=== PATIENT | male | born 1960 | race Caucasian/White ===

== ENCOUNTER → 2016-11-24 12:17 | Emergency (ER) | payer OTHER ==
[~2016-11-24 12:17] MED LIST: Iohexol 350* (CONTRAST) 500 ML MDV IV ONE; NS 0.9% 1000 ML* 1,000 ML IV ONE
--- NOTE | 2016-11-24 13:02 | RAD ---
INDICATION: Intermittent expressive aphasia and right facial droop COMPARISON: Similar CT examination dated August 21, 2014 TECHNIQUE: Contiguous axial sections of the brain were obtained from the skull base to the vertex without contrast. FINDINGS: There is slight asymmetric narrowing of the left frontal horn ventricle unchanged from the prior CT examination. Otherwise the ventricles, cisterns and sulci are within normal limits. The wagner-white matter differentiation is adequately maintained and there is no sulcal effacement. No significant focal abnormality or mass effect is present. There is no evidence for intracranial hemorrhage. No significant focal osseous abnormality is present. The visualized portion of the paranasal sinuses and mastoid air cells appear clear. IMPRESSION: There is no acute intracranial abnormality. Findings were reported to Dr. Monson over the telephone at 1258 hours on November 24, 2016.
[2016-11-24 13:09] LABS: Hematocrit 42 % (42-52); Hemoglobin 13.9 g/dl (14.0-18.0); Mean Corpuscular HGB Conc 34 g/dl (31-36); Mean Corpuscular Hemoglobin 29 pg (27-31); Mean Corpuscular Volume 88 fL (80-94); Mean Platelet Volume 8 um3 (7.4-10.4); Red Blood Count 4.73 10^6/ul (4.0-5.4); Red Cell Distribution Width 14 % (10.5-15)
--- NOTE | 2016-11-24 13:27 | RAD ---
Indication: Neurologic changes. Single frontal view of the chest performed at 1258 hours was reviewed. Comparison is made with previous exam dated August 21, 2014. No mediastinal shift is noted. Heart is of normal size and configuration. Lung baird appear clear. IMPRESSION: NO ACTIVE CARDIOPULMONARY DISEASE IS NOTED.
[2016-11-24 13:29] LABS: Albumin 4.3 g/dL (3.2-5.2); BUN/Creatinine Ratio 27.5 (8-20); Calcium 9.2 mg/dL (8.6-10.3); EGFR African American 128.6 (>60); Globulin 2.4 g/dL (2-4); HDL Cholesterol 39.6 mg/dL; Total Bilirubin 0.6 mg/dL (0.2-1.0); Total Protein 6.7 g/dL (6.4-8.9)
[2016-11-24 13:50] LABS: Potassium 4.4 mmol/L (3.5-5.0)
--- NOTE | 2016-11-24 14:24 | RAD ---
Indication: Stroke. Contrast: Administered 80.1 ml of OMNIPAQUE 350 mg/ml CTA of the neck and head was performed after IV contrast demonstration. Coronal and sagittal reconstructed images as well as 3-D reconstructive images were obtained. Origins of the great vessels are unremarkable. Innominate artery, left common carotid artery is otherwise unremarkable. There is occlusion of the left internal carotid artery just distal to its origin. This is unchanged from previous exam of August 21, 2014 and is a chronic finding. The right internal carotid artery is grossly unremarkable. Both vertebral arteries are patent. Basilar artery and posterior cerebral arteries are unremarkable. CTA of the head demonstrates anterior and middle cerebral arteries to be patent. The left anterior circulation is presumed to be filled by a patent anterior communicating artery. Findings appear to be similar to that seen on August 21, 2014. IMPRESSION: Occlusion of the left internal carotid artery just distal to its origin. This is a chronic process and has been present as far back as August 21, 2014. No new stenosis is noted about calcific plaque is noted in the right carotid bulb which is unchanged from previous exam. The anterior and middle cerebral arteries are otherwise unremarkable.
[2016-11-24 16:54] VITALS: BP 132/76
--- NOTE | 2016-11-25 14:15 | ED ---
Janusz King Alfonso, scribed for Berry Monson MD on 11/24/16 at 1242 . Altered Mental Status - HPI Summary HPI Summary: MATTIE EARLY CALLED AT 1238 This patient is a 56 year old M presenting to [facility] accompanied by with a chief complaint of intermittent difficulty finding words since a few weeks ago, worse since earlier today. He states my talking wasnt coming out right. The patient rates the pain 0/10 in severity. Symptoms aggravated by nothing. Symptoms alleviated by spontaneous resolution. reports confusion, and left- sided facial droop (last night intermittently, 20 minutes ago today, and currently resolved). Patient denies CP. He is prescribed Xarelto which he ran out of and did not take for 3 days. He did take Xarelto yesterday and today. - History Of Current Complaint Chief Complaint: EDNeurologicalDeficit Stated Complaint: AMS/FACIAL DROOPING Time Seen by Provider: 11/24/16 12:31 Hx Obtained From: Patient Onset/Duration: Resolved, Suddenly Timing: Constant Character: Confusion Aggravating Factor(s): Nothing Alleviating Factor(s): Other - Spont Res - Allergies/Home Medications Allergies/Adverse Reactions: Allergies Allergy/AdvReac Type Severity Reaction Status Date / Time Atorvastatin [From Lipitor] Allergy Muscle Ache Verified 11/24/16 12:23 Home Medications: Home Medications Aspirin EC Low Dose* [Ecotrin EC Low Dose 81 MG*] 81 mg PO DAILY 11/24/16 [ History Confirmed 11/24/16] FLUoxetine CAP* [PROzac CAP*] 20 mg PO DAILY 11/24/16 [History Confirmed ] FLUoxetine CAP* [PROzac CAP*] 40 mg PO DAILY 11/24/16 [History Confirmed ] Losartan TAB* [Cozaar TAB*] 25 mg PO DAILY 11/24/16 [History Confirmed 11/24/16] Metoprolol Succinate XL TAB* [Toprol XL TAB*] 12.5 mg PO DAILY 11/24/16 [ History Confirmed 11/24/16] Rivaroxaban TAB(*) [Xarelto 20 mg] 20 mg PO DAILY 11/24/16 [History Confirmed ] PMH/Surg Hx/FS Hx/Imm Hx Endocrine/Hematology History: Reports: Other Endocrine/Hematological Disorders - Per pt "Leiden Factor V" Denies: Hx Diabetes, Hx Thyroid Disease Cardiovascular History: Reports: Hx Angina - 2011, Hx Coronary Artery Disease, Hx Hypercholesterolemia, Hx Hypertension Denies: Hx Congenital Heart Disease, Hx Congestive Heart Failure, Hx Deep Vein Thrombosis, Hx Embolism, Hx Pacemaker/ICD, Hx Syncope Respiratory History: Reports: Hx Sleep Apnea Denies: Hx Asthma History: Denies: Hx Renal Disease Musculoskeletal History: Denies: Hx Back Problems, Hx Gout Sensory History: Reports: Hx Contacts or Glasses Denies: Hx Hearing Aid, Hx Hearing Problem Opthamlomology History: Reports: Hx Contacts or Glasses Neurological History: Reports: Hx CVA, Hx Transient Ischemic Attacks (TIA), Other Neuro Impairments/Disorders - Traumatic head injury 1989. carotid artery occlusion Denies: Hx Dementia, Hx Migraine, Hx Seizures, Hx Spinal Cord Injury Psychiatric History: Reports: Hx Anxiety Denies: Hx Panic Disorder - Surgical History Surgery Procedure, Year, and Place: CARDIAC STENTS 3 OR 4 YEARS - Immunization History Date of Tetanus Vaccine: Up to date Date of Influenza Vaccine: Fall 2012 Infectious Disease History: No Infectious Disease History: Denies: Traveled Outside the [place] in Last 30 Days - Family History Known Family History: Positive: Cardiac Disease - Social History Alcohol Use: None Substance Use Type: Reports: None Smoking Status (MU): Former Smoker Amount Used/How Often: 3ppd Length of Time of Smoking/Using Tobacco: 20 Review of Systems Negative: Fever, Chills Negative: Erythema Negative: Sore Throat Negative: Chest Pain Negative: Shortness Of Breath, Cough Negative: Abdominal Pain, Vomiting, Nausea Negative: dysuria, hematuria Negative: Myalgia, Edema Negative: Rash Neurological: Other - difficulty finding words, confusion, left-sided facial droop; negative dizziness All Other Systems Reviewed And Are Negative: Yes Physical Exam - Summary Physical Exam Summary: Constitutional: Well-developed, Well-nourished, Alert. (-) Distressed Skin: Warm, Dry HENT: Normocephalic; Atraumatic Eyes: Conjunctiva normal Eyes: Conjunctiva normal Neck: Musculoskeletal ROM normal neck. (-) JVD, (-) Stridor, (-) Tracheal deviation Cardio: Rhythm regular, rate normal, Heart sounds normal; Intact distal pulses; The pedal pulses are 2+ and symmetric. Radial pulses are 2+ and symmetric. (-) Murmur Pulmonary/Chest wall: Effort normal. (-) Respiratory distress, (-) Wheezes, (-) Rales Abd: Soft. (-) Tenderness, (-) Distension, (-) Guarding, (-) Rebound Musculoskeletal: (-) Edema Lymph: (-) Cervical adenopathy Neuro: Alert, Oriented x3, Strength normal, Cranial nerves II-XII are grossly intact. (-) Dysmetria, (-) Nystagmus, (-) Ataxia by finger to nose testing, (-) Sensory deficit. Occasional mild dysarthria. See NIH stroke scale. Psych: Mood and affect Normal Triage Information Reviewed: Yes Vital Signs On Initial Exam: Initial Vitals Temp Pulse Resp BP Pulse Ox 96.4 F 50 16 86/62 99 11/24/16 12:21 11/24/16 12:21 11/24/16 12:21 11/24/16 12:21 11/24/16 12:21 Vital Signs Reviewed: Yes - Liz Coma Scale Coma Scale Total: 15 Diagnostics - Vital Signs Vital Signs Temp Pulse Resp BP Pulse Ox 11/24/16 12:21 96.4 F 50 16 86/62 99 - Laboratory Result Diagrams: 11/24/16 12:50 11/24/16 12:50 Lab Statement: Any lab studies that have been ordered have been reviewed, and results considered in the medical decision making process. - Radiology CXR Radiology Interpretation Completed By: Radiologist - NO ACTIVE CARDIOPULMONARY DISEASE IS NOTED. ED physician has reviewed this radiology report and agrees. - CT brain CT Interpretation Completed By: Radiologist - There is no acute intracranial abnormality. Findings were reported to Dr. Monson over the telephone at 1258 hours on November 24, 2016. ED physician has reviewed this radiology report and agrees. CTA head CT Interpretation Completed By: Radiologist - Occlusion of the left internal carotid artery just distal to its origin. This is a chronic process and has been present as far back as August 21, 2014. No new stenosis is noted about calcific plaque is noted in the right carotid bulb which is unchanged from previous exam. The anterior and middle cerebral arteries are otherwise unremarkable. ED physician has reviewed this radiology report and agrees. - EKG 1411 Cardiac Rate: Bradycardia - BPM 52 EKG Rhythm: Sinus Bradycardia EKG Interpretation: No STEMI. National Institutes Of Health - NIH Scale Level of Consciousness: Alert/Keenly Responsive Ask Patient the Month and His/Her Age: Both Correct Ask Pt to Open/Close Eyes and Fisheries Specialist/Release Non-Paretic Hand: Both Correctly Best Gaze (Only Horizontal Eye Movement): Normal Visual Field Testing: No Visual Loss Facial Paresis-Pt to Smile & Close Eyes or Grimace Symmetry: Normal/Symmetrical Motor Function - Right Arm: No Drift-Holds 10 Seconds Motor Function - Left Arm: No Drift-Holds 10 Seconds Motor Function - Right Leg: No Drift-Holds 10 Seconds Motor Function - Left Leg: No Drift-Holds 10 Seconds Limb Ataxia-Must be out of Proportion to Weakness Present: Absent Sensory (Use Pinprick to Test Arms/Legs/Trunk/Face): Normal Best Language (Describe Picture, Name Items): No Aphasia Dysarthria (Read Several Words): Normal Extinction and Inattention: No Abnormality Total Score: 0 Altered Mental Statu Course/Dx - Course Assessment/Plan: MATTIE NNEKA CALLED AT 1238. This patient is a 56 year old M presenting to [facility] accompanied by with a chief complaint of intermittent difficulty finding words since a few weeks ago, worse since earlier today. He states my talking wasnt coming out right. The patient rates the pain 0/10 in severity. Symptoms aggravated by nothing. Symptoms alleviated by spontaneous resolution. reports confusion, and left-sided facial droop (last night intermittently, 20 minutes ago today, and currently resolved). Patient denies CP. He is prescribed Xarelto which he ran out of and did not take for 3 days. He did take Xarelto yesterday and today. An EKG reveals Sinus bradycardia. CXR reveals NO ACTIVE CARDIOPULMONARY DISEASE IS NOTED. ED physician has reviewed this radiology report and agrees. CT brain reveals There is no acute intracranial abnormality. Findings were reported to Dr. Monson over the telephone at 1258 hours on November 24, 2016. ED physician has reviewed this radiology report and agrees. CTA Head/Neck reveals Occlusion of the left internal carotid artery just distal to its origin. This is a chronic process and has been present as far back as August 21, 2014. No new stenosis is noted about calcific plaque is noted in the right carotid bulb which is unchanged from previous exam. The anterior and middle cerebral arteries are otherwise unremarkable. ED physician has reviewed this radiology report and agrees. Consulted Dr. Bass (neurologist) recommends transfer to [place] for neuroendovascular consultation. Consulted Dr. Vegas at [place] who agrees to accept the transfer. Patient will be transferred for continuity of care and neuroendovascular consulation follow up from [place]. The patient is agreeable with this plan. - Diagnoses Discharge Diagnoses: Stuttering TIA During the Visit The Following Alert/Code Occurred: Code Early - CODE EARLY CALLED AT 1238 - Provider Notifications Discussed Care Of Patient With: Abdi Bass Time Discussed With Above Provider: 15:15 Instructed by Provider To: Other - Consulted Dr. Bass (neurologist) recommends transfer to [place] for neuroendovascular consultation. Consulted Dr. Vegas at [place] who agrees to accept the transfer. - Critical Care Time Critical Care Time: 75-104 min - 90 Discharge - Discharge Plan Condition: Stable Disposition: TRANS HIGHER LVL OF CARE FAC Referrals: Trey Wong MD [Primary Care Provider] - The documentation as recorded by the Janusz kat Alfonso accurately reflects the service I personally performed and the decisions made by , Berry Monson MD.
== END | disposition short-term general hospital (02) ==
LOC: ED 12:17
DX: G45.9 Transient cerebral ischemic attack, unspecified (principal); I25.119 Atherosclerotic heart disease of native coronary artery with unspecified angina pectoris; I10 Essential (primary) hypertension; Z95.5 Presence of coronary angioplasty implant and graft; Z79.82 Long term (current) use of aspirin; E78.00 Pure hypercholesterolemia, unspecified; G47.30 Sleep apnea, unspecified; Z87.891 Personal history of nicotine dependence
CPT/HCPCS: 36415; 70450; 70496; 70498; 71010; 80053; 80061; 83605; 84484; 85025; 85610; 85730; 86850; 86900; 86901; 93005; 96360; 96361; 99284; Q9967

== ENCOUNTER 2018-04-12 15:10 | Inpatient (IN) | payer OTHER ==
[2018-04-12] MEDS ORDERED: NS 0.9% 1000 ML** 1,000 ML IV ONE (15:24)
--- NOTE | 2018-04-12 15:46 | ED ---
Neurological HPI - HPI Summary HPI Summary: Pt is a 58 y/o M presenting to the ED with a chief complaint of neurologic changes. Pt reports intermittent diplopia onset this morning at 1000, worse when he looks to the right, and a waxing/waning headache. As per , he has had slurred speech all morning and his gait has been off. Pt has had a bit of a cold but nothing he thinks is notable. Pt denies any fever, chills, erythema of eyes, blurry vision, sore throat, CP, SOB, cough, abdominal pain, N/V, dysuria, hematuria, myalgia, edema, rash, or dizziness. Code powell called 0315. Pt reports mild unsteady gait. - History of Current Complaint Chief Complaint: EDNeurologicalDeficit Stated Complaint: POSS STORKE Time Seen by Provider: 04/12/18 15:22 Last Known Well Date: today, 10:00 Hx Obtained From: Patient, Family/Site Physician - Onset/Duration: Gradual Onset, Started hours ago, Still Present Timing: Constant Onset Severity: Moderate Current Severity: Moderate Pain Intensity: 6 Pain Scale Used: 0-10 Numeric Character: Impaired Speech Aggravating: Nothing Alleviating: Nothing Associated Signs and Symptoms: Positive: Unsteady Gait, Visual Changes, Impaired Speech. Negative: Dizziness, Pain, Nausea/Vomiting, Fever, Chest Pain , Shortness of Breath - Additional Pertinent History Primary Care Physician: [id number] - Allergy/Home Medications Allergies/Adverse Reactions: Allergies Allergy/AdvReac Type Severity Reaction Status Date / Time atorvastatin Allergy Muscle Ache Verified 04/12/18 18:22 Home Medications: Home Medications Alirocumab [Praluent Pen] 75 mg SUBCUT Q12D 04/12/18 [History Confirmed 04/12/18 ] Rosuvastatin (NF) [Crestor (NF)] 5 mg PO BEDTIME 04/12/18 [History Confirmed 05/28] Tadalafil (Nf) [Cialis (NF)] 10 mg PO DAILY PRN 04/12/18 [History Confirmed 05/28] PMH/Surg Hx/FS Hx/Imm Hx Previously Healthy: Yes Endocrine/Hematology History: Reports: Other Endocrine/Hematological Disorders - Per pt "Leiden Factor V" Denies: Hx Diabetes, Hx Thyroid Disease Cardiovascular History: Reports: Hx Coronary Artery Disease, Hx Hypercholesterolemia, Hx Hypertension Denies: Hx Angina, Hx Congenital Heart Disease, Hx Congestive Heart Failure, Hx Deep Vein Thrombosis, Hx Embolism, Hx Myocardial Infarction, Hx Pacemaker/ICD , Hx Syncope Respiratory History: Reports: Hx Sleep Apnea Denies: Hx Asthma, Hx Chronic Obstructive Pulmonary Disease (COPD) History: Denies: Hx Renal Disease Musculoskeletal History: Denies: Hx Back Problems, Hx Gout Sensory History: Reports: Hx Contacts or Glasses Denies: Hx Hearing Aid, Hx Hearing Problem Opthamlomology History: Reports: Hx Contacts or Glasses Neurological History: Reports: Hx CVA, Hx Transient Ischemic Attacks (TIA), Other Neuro Impairments/Disorders - Traumatic head injury 1989. carotid artery occlusion Denies: Hx Dementia, Hx Migraine, Hx Seizures, Hx Spinal Cord Injury Psychiatric History: Reports: Hx Anxiety Denies: Hx Panic Disorder - Surgical History Surgery Procedure, Year, and Place: CARDIAC STENTS 3 OR 4 YEARS - Immunization History Date of Tetanus Vaccine: Up to date Date of Influenza Vaccine: Fall 2012 Infectious Disease History: No Infectious Disease History: Denies: Traveled Outside the [place] in Last 30 Days - Family History Known Family History: Positive: Cardiac Disease - Social History Alcohol Use: None Hx Substance Use: No Substance Use Type: Reports: None Hx Tobacco Use: No Smoking Status (MU): Former Smoker Amount Used/How Often: 3ppd Length of Time of Smoking/Using Tobacco: 20 Review of Systems Negative: Fever, Chills Positive: Diplopia. Negative: Blurred Vision, Erythema Negative: Sore Throat Negative: Chest Pain Negative: Shortness Of Breath, Cough Negative: Abdominal Pain, Vomiting, Nausea Negative: dysuria, hematuria Positive: Other - gait has been "off" all morning. Negative: Myalgia, Edema Negative: Rash Neurological: Negative - dizziness Positive: Slurred Speech All Other Systems Reviewed And Are Negative: Yes Physical Exam - Summary Physical Exam Summary: Constitutional: Well-developed, Well-nourished, Alert. (-) Distressed Skin: Warm, Dry HENT: Normocephalic; Atraumatic Eyes: Conjunctiva normal Neck: Musculoskeletal ROM normal neck. (-) JVD, (-) Stridor, (-) Tracheal deviation Cardio: Rhythm regular, rate normal, Heart sounds normal; Intact distal pulses; The pedal pulses are 2+ and symmetric. Radial pulses are 2+ and symmetric. (-) Murmur Pulmonary/Chest wall: Effort normal. (-) Respiratory distress, (-) Wheezes, (-) Rales Abd: Soft. (-) Tenderness, (-) Distension, (-) Guarding, (-) Rebound Musculoskeletal: (-) Edema Lymph: (-) Cervical adenopathy Neuro: Alert, Oriented x3, Strength normal, Cranial nerves II-XII are grossly intact. (-) Dysmetria, (-) Nystagmus, (-) Ataxia by finger to nose testing. R lateral rectus palsy Psych: Mood and affect Normal Triage Information Reviewed: Yes Vital Signs On Initial Exam: Initial Vitals Temp Pulse Resp BP Pulse Ox 97.8 F 59 18 126/79 59 04/12/18 15:14 04/12/18 15:14 04/12/18 15:14 04/12/18 15:14 04/12/18 15:14 Vital Signs Reviewed: Yes Diagnostics - Vital Signs Vital Signs Temp Pulse Resp BP Pulse Ox 04/12/18 15:14 97.8 F 59 18 126/79 59 - Laboratory Result Diagrams: 04/12/18 15:47 04/12/18 15:47 Lab Statement: Any lab studies that have been ordered have been reviewed, and results considered in the medical decision making process. - Radiology Chest x-ray Radiology Interpretation Completed By: Radiologist Summary of Radiographic Findings: No active cardiopulmonary disease is noted. ED physician has reviewed this report. - CT Brain CT CT Interpretation Completed By: Radiologist Summary of CT Findings: 1. Negative for intra or extra-axial hemorrhage. 2. There is wagner matter white matter obscuration at the RIGHT parietal and occipital lobes and at the LEFT frontal lobe with resolved mass effect compared with the December 29, 2016 exam most consistent with sequela of previous ischemic infarcts. 3. No acute intracranial process evident. ED physician has reviewed this report. - EKG 1653 Cardiac Rate: Bradycardia - 52bpm EKG Rhythm: Sinus Bradycardia ST Segment: Normal Ectopy: None Summary of EKG Findings: No STEMI. Course/Dx - Course Course Of Treatment: Pt is a 58 y/o M presenting to the ED with a chief complaint of neurologic changes. Pt reports intermittent diplopia onset this morning at 1000, worse when he looks to the right, and a waxing/waning headache. As per , he has had slurred speech all morning and his gait has been off. Pt has had a bit of a cold but nothing he thinks is notable. Pt denies any fever, chills, erythema of eyes, blurry vision, sore throat, CP, SOB , cough, abdominal pain, N/V, dysuria, hematuria, myalgia, edema, rash, or dizziness. Code powell called 0315. Pt reports mild unsteady gait. Upon examination, R lateral rectus palsy noted. Brain CT shows 1. Negative for intra or extra-axial hemorrhage. 2. There is wagner matter white matter obscuration at the RIGHT parietal and occipital lobes and at the LEFT frontal lobe with resolved mass effect compared with the December 29, 2016 exam most consistent with sequela of previous ischemic infarcts. 3. No acute intracranial process evident. CXR shows no active cardiopulmonary disease. Pt will be admitted to [facility] with a dx of CVA. - Diagnoses Provider Diagnoses: CVA (cerebral vascular accident) During the Visit The Following Alert/Code Occurred: Code Powell Discharge - Sign-Out/Discharge Documenting (check all that apply): Patient Departure - Discharge Plan Condition: Stable Disposition: ADMITTED TO [facility] Referrals: Trey Wong MD [Primary Care Provider] - - Attestation Statements Document Initiated by Scribe: Yes Documenting Scribe: Mecca Alcocer Provider For Whom Scribe is Documenting (Include Credential): Berry Monson MD. Scribe Attestation: Mecca King, scribed for Berry Monson MD. on 04/12/18 at 1857. Status of Scribe Document: Ready
[2018-04-12 15:52] LABS: ABS Basophils 0.1 10^3/ul (0-0.2); ABS Eosinophils 0.3 10^3/ul (0-0.6); ABS Lymphocytes 1.2 10^3/ul (1.0-4.8); ABS Monocytes 0.5 10^3/ul (0-0.8); ABS Neutrophils 4.3 10^3/ul (1.5-7.7); ABS Nucleated RBC 0 10^3/ul; Eosinophil % 4.3 %; Hematocrit 41 % (42-52); Hemoglobin 13.7 g/dl (14.0-18.0); Lymphocyte % 18.5 %; Mean Corpuscular HGB Conc 34 g/dl (31-36); Mean Corpuscular Hemoglobin 30 pg (27-31); Mean Corpuscular Volume 88 fL (80-94); Mean Platelet Volume 7.6 fL (7.4-10.4); Nucleated Red Blood Cells % 0; Platelet Count 216 10^3/ul (150-450); Red Blood Count 4.65 10^6/ul (4.00-5.40); Red Cell Distribution Width 14 % (10.5-15); White Blood Count 6.2 10^3/ul (3.5-10.8)
[2018-04-12 16:04] LABS: Activated Partial Thrombo Time 41.5 seconds (26.0-36.3); INR 1.34 (0.77-1.02)
[2018-04-12 16:10] LABS: Albumin 4.3 g/dL (3.2-5.2); BUN/Creatinine Ratio 22.4 (8-20); Calcium 9.2 mg/dL (8.6-10.3); EGFR Non-African American 92.6 (>60); Globulin 2.1 g/dL (2-4); HDL Cholesterol 33.8 mg/dL; Potassium 4.1 mmol/L (3.5-5.0); Total Bilirubin 0.3 mg/dL (0.2-1.0); Total Protein 6.4 g/dL (6.4-8.9)
[2018-04-12] MEDS ORDERED: Ondansetron INJ* 2 MG/ML VIAL IV PRN (18:01)
[2018-04-12] MEDS ORDERED: Docusate CAP* 100 MG PO PRN (18:01)
--- NOTE | 2018-04-12 18:50 | CONS ---
NEUROLOGY CONSULTATION NOTE: DATE OF CONSULT: 04/12/18 CONSULTING PROVIDER: Berry Monson MD REASON FOR CONSULT: Activated code wagner for double vision. CHIEF COMPLAINT: The patient is complaining of double vision. HISTORY OF PRESENT ILLNESS: Mr. 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 The patient was found to have a left ICA occlusion with narrowing of the vertebral arteries bilaterally. The patient presented today with new onset double vision. The double vision resolves with one eye closure. The double vision was described as horizontal that is worse when looking towards the right side. He was last known well at 9 a.m., symptoms started at 10 a.m. while he was getting ready to go to his aunt's . En route to the , the patient was pointing out that the cars seemed to be either too close or too far away from the vehicle. He was not driving. He takes Xarelto and aspirin regularly. The patient takes Xarelto for factor V Leiden and gene mutation. The patient is also complaining of headaches. The headaches are in the occipital region, 7/10 in severity, nonradiating, not associated with photo or phonophobia. The headache onset was this morning. Sneezing, coughing, or straining does not worsen the headache. He typically does not have headaches. Please also note that the patient has a history of abnormal EEG, but never had any seizures. He is on levetiracetam 750 mg twice daily. PAST MEDICAL HISTORY: The patient has cardiac stents; dyslipidemia; hypertension; sleep apnea, who uses CPAP regularly; traumatic brain injury; and carotid artery occlusion. MEDICATIONS: 1. Losartan 12.5 mg p.o. every day. 2. Xarelto 20 mg p.o. daily. 3. Aspirin 81 mg daily. 4. Please note that he took both Xarelto and aspirin this morning. 5. Levetiracetam 650 mg p.o. twice daily. 6. Fluoxetine 60 mg p.o. daily. 7. Rosuvastatin 5 mg p.o. at bedtime. 8. Praluent pen 75 mg subcutaneous every 12 days. 9. Cialis 10 mg p.o. daily as needed. FAMILY HISTORY: Mom is living in her 80s. Father from prostate cancer. He has sisters with a history of diabetes. SOCIAL HISTORY: The patient is disabled due to the stroke. He was a former smoker, but quit 10 years ago. He denied any drug use. He denied any alcohol use. 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 He is and has 3 children. REVIEW OF SYSTEMS: A 14-point review of systems was obtained and otherwise negative except for what is mentioned in the HPI. PHYSICAL EXAMINATION: Vitals: Temperature of 97.8, pulse of 59, respiratory rate of 18, oxygen saturation 59%, blood pressure of 129/79. General: Well- nourished, well-developed, obese man in no acute distress. Head: Atraumatic, normocephalic. Eyes: Conjunctivae/cornea are clear. Neck is supple and symmetrical with no carotid bruit. Lungs are clear to auscultation bilaterally , nonlabored breathing. Cardiovascular: Regular rate and rhythm with normal S1 , S2. Extremities: Normal range of motion with no cyanosis. Skin: No skin lesions or lacerations. Psych: Affect is broad and normal mood. Easy to establish rapport. NIH stroke scale is 1 for reported slurred speech, but otherwise the patient had no other deficits. Neurological Examination: Mental Status: Awake, alert, and oriented to person, place, time, and general circumstances. Speech and language including expression, naming, repetition, and comprehension were assessed and found to be normal. Cranial Nerves: Normal confrontation testing bilaterally except for mild right lateral rectus palsy. Diplopia resolves with one eye closure. Sensation is intact to light touch and temperature sensation on the right, but reduced on the left. He has no facial droop. He is able to hear throughout the history process. Tongue is symmetrical and midline with no atrophy or fasciculation. Motor Examination: No abnormal movement and no pronator drift. Normal bulk and tone throughout. He is able to move all 4 extremities. 5/5 strength throughout. Reflexes: Right/left, brachioradialis 1/1, biceps 1/1, triceps 1/1, patella 1/1, ankle 0/0 , plantar flexor/flexor. Sensation is intact throughout except for reduced sensation to temperature sensation on the left arm and leg. Coordination: Past pointing, left worse than right. Gait and station narrow based, was not assessed due to acute stroke evaluation. ASSESSMENT: 1. Mr. Dolly Nelson is a 58-year-old man with history of factor V Leiden mutation, on Xarelto; left carotid occlusion, on aspirin; hypertension; dyslipidemia; obstructive sleep apnea, on CPAP, who presented with acute-onset headache and horizontal diplopia. On examination, the patient has mild right lateral rectus palsy. He also has a past pointing on cerebellar testing. This suggests that the patient has what we suspect given the acute onset of symptoms would be an acute small lacunar infarct to the corinne or the cerebellum, preferably the right palms or left cerebellum. His examination of sensory abnormality can be confronted from his previous stroke. NIH stroke scale is 1. We did not assess for large-vessel occlusion given that the patient has known left ICA occlusion, which is probably symptomatic at this point and his NIH stroke scale is low. He is not a candidate for IV tPA since he is on Xarelto and he presented more than 6 hours from his last known well time. 2. History of hypertension, currently controlled. Blood pressure is controlled and is within normal range. 3. Factor V Leiden mutation on Xarelto. 4. Dyslipidemia, on low-dose rosuvastatin and injection of Praluent pen. 5. Obstructive sleep apnea. 6. The patient had a right SECURITY SYSTEM SALES CONSULTANT vascular territory ischemic stroke. RECOMMENDATIONS: Admit to the hospitalist service. Please place the patient on telemetry. Neuro checks every 4 hours. I ordered MRI brain as well as MRA head and neck to evaluate for acute stroke in the brainstem. Other possibility to these symptoms would be microvascular infarct in patients with diabetes. The patient is not diabetic; however, checking his hemoglobin A1c will give us a better assessment. Please obtain a lipid panel. Neuro checks every 4 hours. Obtain MITOCHONDRIAL DISORDERS COUNSELOR evaluation. No need for PT or OT evaluation at this time, but depending on the patient's progress, he may need PT evaluation. If symptoms persist, the patient can see his science technician to be evaluated for prism lenses. The patient is currently on anticoagulation therapy on Xarelto as well as on aspirin. Change in his antithrombotic therapy is not recommended at this time until we further understand the cause of his symptoms. The patient does not have any fluctuating symptoms to suspect myasthenia gravis and the acuity of the symptoms do not correlate with the neuromuscular junction disorder. Normotensive blood pressure range is recommended. Please check TSH, vitamin B12 , and hemoglobin A1c level. TIME SPENT: I spent 60 minutes of critical care time assessing the patient, obtaining history, examining the patient, interpreting the CT head results, and evaluating the patient for tPA therapy, which he was not a candidate for. [id number]/[facility] #: [id number] FRANKY
[2018-04-12] MEDS: Acetaminophen TAB* 325 MG PO PRN (21:26)
[2018-04-12] MEDS: levETIRAcetam TAB* 500 MG PO SCH (21:26)
[2018-04-12] MEDS: CMCS: Rosuvastatin (NF) 5 MG TAB PO SCH (21:28)
[2018-04-12] MEDS: Melatonin 3 MG TAB PO PRN (21:29)
--- NOTE | 2018-04-12 22:02 | PN ---
Progress Note - Progress Note Date of Service: 04/12/18 Note: Called to bedside by RN for concern for assymetric pupils. On exam, patient states that his double vision has improved. His pupils are symmetric, he denies other complaint. Continue neuro checks q4 h.
--- NOTE | 2018-04-13 00:06 | HP ---
CC: Dr. Trey Wong; Dr. Neumann at [facility] * ADMISSION HISTORY AND PHYSICAL: DATE OF ADMISSION: PRIMARY CARE PROVIDER: Dr. Trey Wong. NEUROLOGIST: Dr. Neumann at [facility]. HEALTHCARE PROXY: His . CODE STATUS: Full. SOURCE OF INFORMATION: History was obtained from interview with the patient's and the patient. RELIABILITY: Good. CHIEF COMPLAINT: Double vision and slurred speech. HISTORY OF PRESENT ILLNESS: This is a 58-year-old man with past medical history of CVA in 2016 that left him with left-sided neglect as well as multiple TIAs in 2013 and 2014, thought with factor V Leiden had some contributions. He has been in his usual state of health except for cough for several weeks, woke up overnight with a headache and took some Tylenol with relief of his headache. Went back to bed, and this morning, he was with his driving to attend a , around 10 a.m. noted to be seeing 2 of every car. The called PCP, who advised the patient make an appointment to be seen in his office the following day. The patient also called his neurologist, who advised the patient to call his primary care provider. Symptoms did not worsen, however, there were several episodes of intermittent slurred speech, which resolved. However, in the setting of previous history of slurred speech and double vision, decided to pursue evaluation at [facility]. In addition to the aforementioned symptoms, the patient has also felt off balance today, although did not have any falls or loss of consciousness. When seen in the emergency room, his headache had been resolved. Also of note, the patient has NuMask for his obstructive sleep apnea. He had been having intermittent headaches prior to the change of the mask, after which his headaches had abated. Additionally, he was recently started on Praluent subcutaneously every 12 days, after which his headaches returned and they are unclear whether his headaches were in relation to the new medication for his cholesterol and secondary stroke reduction suspectedly. Of note, the patient has no headaches now as mentioned above. PAST MEDICAL HISTORY: Includes CVA in December 2016, was transferred to [facility] at that time, left with residual left field cut, hemineglect; hypertension; hyperlipidemia; anxiety; TIA in 2013 and 2014. He has left internal carotid occlusion, factor V Leiden deficiency, obstructive sleep apnea. PAST SURGICAL HISTORY: No history of surgeries. HOME MEDICATIONS: Include: 1. Rivaroxaban 20 mg daily. 2. Fluoxetine 60 mg daily. 3. Aspirin 81 mg daily. 4. Cialis as needed. 5. Losartan 12.5 mg every other day. 6. Keppra 750 mg twice daily. 7. Rosuvastatin 5 mg at bedtime. 8. Praluent 75 mg subcutaneously every 12 days. ALLERGIES: ATORVASTATIN. FAMILY HISTORY: Father with prostate cancer. SOCIAL HISTORY: [id number] smoking, 3 packs per day for 20 years, quit 10 years prior to presentation. No alcohol. He is on disability after a stroke in 2017. REVIEW OF SYSTEMS: As per HPI, otherwise all other systems negative here. PHYSICAL EXAMINATION GENERAL: Sitting in bed, interactive, pleasant, no apparent distress. VITAL SIGNS: Vitals in the emergency room - 141/84, heart rate of 63, respiratory rate is 20, he is 96% on room air, T-max 97.8. HEENT: His oropharynx is clear. He has moist mucous membranes. Sclerae are anicteric. He has non-elevated JVD. LUNGS: Clear to auscultation. HEART: He has regular rate and rhythm. No murmurs, rubs, or gallops. ABDOMEN: Protuberant, but soft, nontender, and nondistended. EXTREMITIES: Warm and well perfused without clubbing, cyanosis, or edema. NEUROLOGIC: He is alert and oriented x3. His right eye does not abduct all of the way. His face is symmetric. He has a left hemineglect. Otherwise, cranial nerves intact. His strength is 5/5 throughout. He has a mild drift on the right. Gait not assessed. DIAGNOSTIC STUDIES/LAB DATA: Labs reviewed, notable for lactic acid 1.0, cholesterol is 115, LDL 29, HDL 33.8. BUN is 19, creatinine is 0.85. Hemoglobin is 13.7, hematocrit is 41, platelets 216, white blood cells 6.2. Data reviewed. EKG: Sinus bradycardia. Ventricular rate of 52, borderline left axis, good R-wave progression. No ST-T wave changes. Brain CT. Impression: Negative for intra or extra-axial hemorrhage. There is wagner matter, white matter obscurations on right parietal and occipital lobes and at the left frontal lobe with resolved mass effect compared to December 2016 with his current exam most consistent with sequelae of previous ischemic infarcts. No acute intracranial process is evident. Chest x-ray. Impression: No active cardiopulmonary disease is noted. ASSESSMENT AND PLAN: This is a 58-year-old man with past medical history of cerebrovascular accident as well as multiple transient ischemic attacks, history of factor V Leiden, presenting with diplopia and intermittent slurred speech, found with right 6th cranial nerve deficit, which is apparently new. 1. Neurological deficits. As indicated above, cranial nerve deficit as well as intermittent neuro deficits prior to presentation, concern for cerebrovascular accident. Continue on aspirin and Xarelto, neuro checks. MRI head and neck pending. Seen by Dr. Fernández of Neurology to follow. Cholesterol is under good control. Permissive hypertension. Holding losartan. Continue Keppra, which the patient is on for seizure prophylaxis and in the setting of his previous strokes, started by Neurology at [facility]. 2. Factor V Leiden deficiency. Continue Xarelto. 3. Hypertension. Hold Losartan. 4. Sinus bradycardia, monitor. 5. Obstructive sleep apnea. Continue his CPAP. 6. Headache. Previous report of over last several weeks. Currently resolved. No acute intervention. 7. DVT prophylaxis, Xarelto. TIME SPENT: Greater than 60 minutes were spent in admission and history of this patient, with greater than half was spent [id number] with the patient. [id number]/[facility] #: [id number] FRANKY
[2018-04-13 06:32] LABS: Urine Appearance Clear; Urine Bilirubin Negative (Negative); Urine Blood Negative (Negative); Urine Color Yellow; Urine Glucose Negative (Negative); Urine Ketones Negative (Negative); Urine Nitrite Negative (Negative); Urine Protein Negative (Negative); Urine Specific Gravity 1.024 (1.010-1.030); Urine Urobilinogen Negative (Negative)
[2018-04-13] MEDS: Acetaminophen TAB* 325 MG PO PRN ×3 (06:54→19:52)
[2018-04-13] MEDS: Aspirin EC TAB* 81 MG TAB.EC PO SCH (10:05)
[2018-04-13] MEDS: Rivaroxaban TAB(*) 20 MG TAB PO SCH (10:05)
[2018-04-13] MEDS: levETIRAcetam TAB* 500 MG PO SCH ×2 (10:05→19:50)
[2018-04-13] MEDS: FLUoxetine CAP* 20 MG PO SCH (10:05)
--- NOTE | 2018-04-13 16:57 | PN ---
Subjective Date of Service: 04/13/18 Interval History: Intermittent diplopia but I could not elicit any on my exam Denies LOVETT, N/V, other vision changes, weakness, unsteady gait He is very concerned about his ability to continue his exercise regimen Objective Active Medications: Acetaminophen (Tylenol Tab*) 650 mg PO Q4H PRN PRN Reason: FEVER/PAIN Last Admin: 04/13/18 12:06 Dose: 650 mg Aspirin (Aspirin Ec Tab*) 81 mg PO DAILY [facility] Last Admin: 04/13/18 10:05 Dose: 81 mg Docusate Sodium (Colace Cap*) 100 mg PO BID PRN PRN Reason: CONSTIPATION Fluoxetine HCl (Prozac Cap*) 60 mg PO DAILY [facility] Last Admin: 04/13/18 10:05 Dose: 60 mg Levetiracetam (Keppra Tab*) 750 mg PO BID [facility] Last Admin: 04/13/18 10:05 Dose: 750 mg Melatonin (Melatonin) 3 mg PO BEDTIME PRN; Protocol PRN Reason: SLEEP Last Admin: 04/12/18 21:29 Dose: 3 mg Ondansetron HCl (Zofran Inj*) 4 mg IV Q4H PRN PRN Reason: NAUSEA/VOMITING Rivaroxaban (Xarelto(*)) 20 mg PO DAILY [facility] Last Admin: 04/13/18 10:05 Dose: 20 mg Rosuvastatin Calcium (Crestor (Nf)) 5 mg PO BEDTIME [facility]; Protocol Last Admin: 04/12/18 21:28 Dose: Not Given Vital Signs - 8 hr 04/13/18 04/13/18 11:14 15:15 Temperature 97.3 F 98.1 F Pulse Rate 56 50 Respiratory 22 20 Rate Blood Pressure 134/67 111/44 (mmHg) O2 Sat by Pulse 95 95 Oximetry Oxygen Devices in Use Now: None Appearance: NAD Eyes: No Scleral Icterus, PERRLA Ears/Nose/Mouth/Throat: NL Teeth, Lips, Gums, Clear Oropharnyx Neck: NL Appearance and Movements; NL JVP, Trachea Midline Respiratory: Symmetrical Chest Expansion and Respiratory Effort, Clear to Auscultation Cardiovascular: RRR Abdominal: NL Sounds; No Tenderness; No Distention, No Hepatosplenomegaly Lymphatic: No Cervical Adenopathy Extremities: No Edema Skin: No Rash or Ulcers Neurological: Alert and Oriented x 3, - - failure of right eye to abduct entirely Result Diagrams: 04/12/18 15:47 04/12/18 15:47 Assess/Plan/Problems-Billing Assessment: 58 yo M h/o factor V leiden mut with several TIAs and CVAs now returning with dipolopia brief slurred speech found with recurrent CVA - Patient Problems (1) CVA (cerebral vascular accident) Comment: Recurrent stoke on ASA, xarelto maximum 2nd risk reduction Discussed with neurology, unclear path forward regarding treatmnent of factor V leiden with recurrent strokes. I was unable to reach his neurologist at [facility] but will try again in order to have better care coordination. A transition to coumadin may be warrented. (2) Factor V Leiden mutation Comment: marcin (3) BRITTNY (obstructive sleep apnea) Comment: CPAP (4) HLD (hyperlipidemia) Comment: Continue with crestor Also takes praluent (5) DVT prophylaxis Comment: marcin
[2018-04-13] MEDS: Melatonin 3 MG TAB PO PRN (19:52)
[2018-04-13] MEDS: CMCS: Rosuvastatin (NF) 5 MG TAB PO SCH (19:53)
--- NOTE | 2018-04-13 21:28 | PN ---
Subjective Date of Service: 04/13/18 Length of Stay: 1 Days Neurology is following for stroke. Interval History: He still has double vision which is binocular, horizontal, and it is worse with right gaze. He denied any weakness. He feels much better than yesterday and is able to ambulate without assistance. he denied any CP, SOB, or palpitations. Review of Systems: as per subjective. Objective Active Medications: Acetaminophen (Tylenol Tab*) 650 mg PO Q4H PRN PRN Reason: FEVER/PAIN Last Admin: 04/13/18 19:52 Dose: 650 mg Aspirin (Aspirin Ec Tab*) 81 mg PO DAILY [facility] Last Admin: 04/13/18 10:05 Dose: 81 mg Docusate Sodium (Colace Cap*) 100 mg PO BID PRN PRN Reason: CONSTIPATION Fluoxetine HCl (Prozac Cap*) 60 mg PO DAILY [facility] Last Admin: 04/13/18 10:05 Dose: 60 mg Levetiracetam (Keppra Tab*) 750 mg PO BID [facility] Last Admin: 04/13/18 19:50 Dose: 750 mg Melatonin (Melatonin) 3 mg PO BEDTIME PRN; Protocol PRN Reason: SLEEP Last Admin: 04/13/18 19:52 Dose: 3 mg Ondansetron HCl (Zofran Inj*) 4 mg IV Q4H PRN PRN Reason: NAUSEA/VOMITING Rivaroxaban (Xarelto(*)) 20 mg PO DAILY [facility] Last Admin: 04/13/18 10:05 Dose: 20 mg Rosuvastatin Calcium (Crestor (Nf)) 5 mg PO BEDTIME [facility]; Protocol Last Admin: 04/13/18 19:53 Dose: 5 mg Vital Signs 04/12/18 04/13/18 04/13/18 23:20 03:24 08:00 Temperature 97.0 F 97.1 F Pulse Rate 50 55 Respiratory 22 22 16 Rate Blood Pressure 128/53 118/52 (mmHg) O2 Sat by Pulse 98 95 95 Oximetry 04/13/18 04/13/18 04/13/18 08:14 11:14 15:15 Temperature 98.7 F 97.3 F 98.1 F Pulse Rate 50 56 50 Respiratory 23 22 20 Rate Blood Pressure 125/71 134/67 111/44 (mmHg) O2 Sat by Pulse 94 95 95 Oximetry Intake and Output Last 24 Hours 04/11/18 04/12/18 04/13/18 04/14/18 06:59 06:59 06:59 06:59 Intake Total 1000 120 Output Total 350 0 Balance 650 120 Weight 258 lb Intake: IV Fluids 1000 Oral 0 120 Output: Urine 350 0 Oxygen Devices in Use Now: None Neurology Exam: General: Well nourished, well developed, and in no acute distress HEENT: Normocephelic/atraumatic, sclera anicteric, mucous membranes moist Neck: Supple Chest: Clear to auscultation bilaterally Cardiovascular: Regular rate and rhythm without murmurs, rubs, gallops Abdomen: Soft, nontender/nondistended Extremities: No clubbing, cyanosis, or edema Neurological Findings: Awake, alert, and oriented to person, place, and time. Speech: fluent without dysarthric, repetition intact Cranial Nerve: PERRL, right later rectus palsy. No facial asymmetry. Motor: s/s throughout, proximal and distal extremities x4 tone/bulk normal Sensation: intact to LT/PP bilaterally upper and lower extremities Deep Tendon Reflex: 2+ symmetric in the upper/lower extremities, Babinski - down going Finger to nose, rapid alternating movements intact without tremor, no dysdiadochokinesia Gait: intact with good arm swing and stride Result Diagrams: 04/12/18 15:47 04/12/18 15:47 Additional Lab and Data: MRI brain without contrast: restricted diffuse in the left centrum semiovale. MRA head and neck- occlusive left ICA with reduced distal flow in the left MCA distribution. Assessment/Plan 1. Acute left subcortical lacunar ischemic stroke 2. Right lateral rectus palsy 3. Factor V Leiden mutation Recommendations: 1. Need to discuss with the patient's neuro-vascular specialist at regarding anti-thrombotic therapy given the patient had new stroke while on Xarelto and aspirin. The patient reported adherence to both medications. 2. Ordered repeat MRI brain w/contrast to evalkuate for missed pontine stroke on initial scan or new demyelinating lesions 3. Ordered TTE 4. Ordered a blood patch 5. Ordered ESR, CRP to look for a possible underlying vasculitis process (less likely), TSH/free T4 to check for thyroid disease. Also ordered B12 level. Ordered acetylcholine receptor binding antibody although I highly doubt an underlying neuromuscular junction disorder presenting with sudden onset double vision. 6. Recommend neuro checks every 4 hours 7. No need for PT/OT/TAX ACCOUNTING MANAGER evlauate and treat since patient is only symptomatic from double vision.
[2018-04-13 21:38] LABS: C Reactive Protein 10.97 mg/L (<8.01)
[2018-04-13 21:57] LABS: TSH (Thyroid Stimulating Horm) 1.7 mcIU/mL (0.34-5.60)
[2018-04-13 21:59] LABS: Free T4 0.88 ng/dL (0.61-1.12)
[2018-04-13] MEDS ORDERED: Gadoteridol* (CONTRAST) 279.3 MG/ML 10 ML IV ONE (22:09)
[2018-04-14] MEDS: Acetaminophen TAB* 325 MG PO PRN (06:31)
[2018-04-14] MEDS: FLUoxetine CAP* 20 MG PO SCH (08:10)
[2018-04-14] MEDS: levETIRAcetam TAB* 500 MG PO SCH (08:10)
[2018-04-14] MEDS: Aspirin EC TAB* 81 MG TAB.EC PO SCH (08:10)
[2018-04-14] MEDS: Rivaroxaban TAB(*) 20 MG TAB PO SCH (08:10)
[2018-04-14 11:37] VITALS: BP 113/58
--- NOTE | 2018-04-14 15:45 | PN ---
Subjective Date of Service: 04/14/18 Length of Stay: 2 Days Neurology is following for right lateral rectus palsy and stroke. Interval History: The patient continues to feel well. Spouse stated that he is better than he was before the incidental finding of stroke. He still has continues double vision due to the right lateral rectus palsy. He denied any headache or visual loss. he denied any focal weakness or paresthesia. MRI brain with contrast was repeated on 04/13/2018: there is no evidence of any infarction in the corinne. There is area of restricted diffusion in the centrum semiovale area on the left. I reviewed the MRI brain obtained in 2014. There has been increased T2 subcortical white matter changes consistent with microvascular small vessel ischemia. Review of Systems: Denied CP, SOB, or palpitations. Objective Active Medications: Acetaminophen (Tylenol Tab*) 650 mg PO Q4H PRN PRN Reason: FEVER/PAIN Last Admin: 04/14/18 06:31 Dose: 650 mg Aspirin (Aspirin Ec Tab*) 81 mg PO DAILY [facility] Last Admin: 04/14/18 08:10 Dose: 81 mg Docusate Sodium (Colace Cap*) 100 mg PO BID PRN PRN Reason: CONSTIPATION Fluoxetine HCl (Prozac Cap*) 60 mg PO DAILY [facility] Last Admin: 04/14/18 08:10 Dose: 60 mg Levetiracetam (Keppra Tab*) 750 mg PO BID [facility] Last Admin: 04/14/18 08:10 Dose: 750 mg Melatonin (Melatonin) 3 mg PO BEDTIME PRN; Protocol PRN Reason: SLEEP Last Admin: 04/13/18 19:52 Dose: 3 mg Ondansetron HCl (Zofran Inj*) 4 mg IV Q4H PRN PRN Reason: NAUSEA/VOMITING Rivaroxaban (Xarelto(*)) 20 mg PO DAILY [facility] Last Admin: 04/14/18 08:10 Dose: 20 mg Rosuvastatin Calcium (Crestor (Nf)) 5 mg PO BEDTIME [facility]; Protocol Last Admin: 04/13/18 19:53 Dose: 5 mg Vital Signs 04/13/18 04/13/18 04/13/18 20:00 20:07 23:09 Temperature 97.2 F 97.1 F Pulse Rate 59 86 Respiratory 16 16 19 Rate Blood Pressure 129/53 109/53 (mmHg) O2 Sat by Pulse 96 96 93 Oximetry 04/14/18 04/14/18 04/14/18 03:52 07:10 08:00 Temperature 97.1 F 97.5 F Pulse Rate 51 46 Respiratory 18 19 18 Rate Blood Pressure 108/49 123/47 (mmHg) O2 Sat by Pulse 97 90 95 Oximetry 04/14/18 11:10 Temperature 97.7 F Pulse Rate 44 Respiratory 18 Rate Blood Pressure 113/58 (mmHg) O2 Sat by Pulse 95 Oximetry Intake and Output Last 24 Hours 04/12/18 04/13/18 04/14/18 04/15/18 06:59 06:59 06:59 06:59 Intake Total 1000 120 0 Output Total 350 0 Balance 650 120 0 Weight 258 lb Intake: IV Fluids 1000 Oral 0 120 0 Output: Urine 350 0 Oxygen Devices in Use Now: None Neurology Exam: General: Well nourished, well developed, and in no acute distress HEENT: Normocephelic/atraumatic, sclera anicteric, mucous membranes moist Neck: Supple Chest: Clear to auscultation bilaterally Cardiovascular: Regular rate and rhythm without murmurs, rubs, gallops Neurological Findings: Awake, alert, and oriented to person, place, and time. Speech: fluent without dysarthric, repetition intact Cranial Nerve: PERRL, right lateral rectus palsy. No facial asymmetry. Motor: s/s throughout, proximal and distal extremities x4 tone/bulk normal Sensation: intact to LT/PP bilaterally upper and lower extremities Deep Tendon Reflex: 2+ symmetric in the upper/lower extremities, Babinski - down going Finger to nose, rapid alternating movements intact without tremor, no dysdiadochokinesia Gait: intact with good arm swing and stride Result Diagrams: 04/12/18 15:47 04/12/18 15:47 Additional Lab and Data: MRI brain without contrast: restricted diffuse in the left centrum semiovale. MRA head and neck- occlusive left ICA with reduced distal flow in the left MCA distribution. Assessment/Plan 1. Acute left subcortical lacunar ischemic stroke ( this is an incidental finding)- The repeat MRI shows the area of restricted diffusion with some ADC mapping suggesting a stroke and not T2-shine through. 2. 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 Factor V Leiden mutation (Heterozygote)- on Xarelto 4. Diffuse white matter changes consistent with small vessel ischemia- this has increased when compared to the MRI brain from 2015. Recommendations: - Discussed the case with Dr. Neumann from vascular neurology. He agreed with switching Xarelto to coumadin bridge with Lovenox. We can quantitatively measure the therapeutic range with coumadin. Continue aspirin 81 mg daily - Pt has a scheduled appointment with ophthalmology tomorrow - Pending 2D TTE results. - Continue cholesterol lowering agent - Follow-up with me in 4-6 weeks. We will arrange a hospital follow-up appointment. - no need for PT/OT/ORTHOPEDICALLY IMPAIRED TEACHER since the patient is only symptomatic from the lateral rectus palsy. - Stroke education and secondary stroke measures maximized - He will be discharged home today and anticipate to follow-up with his PCP to check INR in 1 week. We discussed how spinach can lower the coumadin level. He will moderately reduce the green vegetable intake. Time spent: 25 minutes of which >50% was spent examining the patient, education and counseling, and discussing the treatment plan as mentioned above.
--- NOTE | 2018-04-14 19:31 | ECHO ---
Patient: AMELIA VARNER [facility] Rec#: [id number] : 1960 Date: 04/14/2018 Age: 58y Height: 178 cm / 70.1 in Weight: 117 kg / 257.9 lbs Sex: M BSA: 2.33 Room#: 453 Admit Date#: 04/12/2018 Type: Inpatient Referring: Esvin Fernández Reading: Gianna Ignacio MD Retail Shift Supervisor: Amaya Lane RDCS CC: Trey Wong MD CC: hCris Das MD Transthoracic Echocardiogram Indication: CVA Rhythm: NSR with PVCs Findings History: [id number], several prior TIAs, BRITTNY with CPAP,HTN,HLD,anxiety,Factor V Leiden deficiency. Technical Comments: The study quality is fair. Completed at 1055. Left Ventricle: The left ventricular chamber size is normal. Posterior wall hypertrophy is observed. Global left ventricular wall motion and contractility are within normal limits. The estimated ejection fraction is 55-60%. Normal left ventricular diastolic filling is observed. Left Atrium: The left atrial chamber size is normal.based on indexed volume. Right Ventricle: The right ventricular cavity size is normal. The right ventricular global systolic function is normal. Right Atrium: The right atrial cavity size is normal. There is no patent foramen ovale visualized. There is no evidence of patent foramen ovale shunting. A patent foramen ovale is not demonstrated with color Doppler and agitated contrast. (one injection w/o valsalva). Aortic Valve: The aortic valve is trileaflet. There is no evidence of aortic regurgitation. There is no evidence of aortic stenosis. Mitral Valve: The mitral valve leaflets are mildly thickened. There is mild mitral regurgitation. There is no evidence of mitral stenosis. Tricuspid Valve: The tricuspid valve leaflets are normal. There is a physiologic tricuspid regurgitation. There is no tricuspid stenosis. Pulmonic Valve: The pulmonic valve appears normal. There is no evidence of pulmonic regurgitation. There is no pulmonic stenosis. Pericardium: A pericardial fat pad is visualized. Aorta: There is mild dilatation of the ascending aorta. There is no dilatation of the aortic arch. There is mild dilatation of the aortic root. Pulmonary Artery: The main pulmonary artery appears normal. Venous: The venous system is not well visualized. Contrast: Intravenous agitated saline contrast was used to assess intracardiac shunting. Conclusions The left ventricular chamber size is normal. Global left ventricular wall motion and contractility are within normal limits. The estimated ejection fraction is 55-60%. Normal left ventricular diastolic filling is observed. The right ventricular global systolic function is normal. There is no evidence of patent foramen ovale shunting based on color Doppler and bubble study. There is mild mitral regurgitation. There is mild dilatation of the ascending aorta: 3.5 cm. Compared with JOI (transesophogeal echo) of 11/30/13, ventricular and valvular function are stable. Bubble study at that time was also negative. Measurements Name Value Normal Range RVIDd (AP) 2D 3 cm (0.9 - 2.6) RVDdMajor (2D) 3 cm (2.2 - 4.4) RAd ISD 4CH 4.7 cm (3.4 - 4.9) RA (A4C)W 2.9 cm (2.9 - 4.6) IVSd (2D) 1 cm (0.6 - 1) LVPWd (2D) 1.1 cm (0.6 - 1) LVIDd (2D) 4.8 cm (3.6 - 5.4) LVIDs (2D) 3.4 cm - LV FS (2D) 29 % (25 - 45) Aortic Annulus 2.1 cm (1.4 - 2.6) Ao root diameter (2D) 3.6 cm (2.1 - 3.5) Ascending Ao 3.5 cm (2.1 - 3.4) Aortic arch 3.3 cm (1.8 - 3.4) Descending Ao 0.6 cm - LA dimension (AP) 2D 4.5 cm (2.3 - 3.8) LAd ISD 4CH 5.3 cm (2.9 - 5.3) LA ISD 4CH W 4 cm (2.5 - 4.5) Name Value Normal Range LA ESV SP 4CH (A/L) 22 ml - LA ESV SP 2CH (A/L) 22 ml - LA ESV BP (A/L) index 22 ml/m2 - Name Value Normal Range MV E-wave Vmax 0.7 m/sec - MV deceleration time 201 msec - MV A-wave Vmax 0.7 m/sec - MV E:A ratio 1 ratio - LV septal e' Vmax 0.11 m/sec - LV lateral e' Vmax 0.08 m/sec - LV E:e' septal ratio 6.36 ratio - LV E:e' lateral ratio 8.75 ratio - Name Value Normal Range AV Vmax 1.3 m/sec - AV VTI 30.6 cm - AV peak gradient 7 mmHg - AV mean gradient 3 mmHg - LVOT Vmax 0.7 m/sec - LVOT VTI 15.2 cm - LVOT peak gradient 2 mmHg - LVOT mean gradient 1 mmHg - Name Value Normal Range MR Vmax 4.5 m/sec - MR VTI 161 cm - Name Value Normal Range PV Vmax 0.8 m/sec - PV peak gradient 3 mmHg -
--- NOTE | 2018-04-14 22:43 | DS ---
CC: Dr. Trey Wong * DISCHARGE SUMMARY: DATE OF ADMISSION: 04/12/18 DATE OF DISCHARGE: 04/14/18 PRIMARY CARE PROVIDER: Dr. Trey Wong. DISPOSITION ON DISCHARGE: Home. CONDITION ON DISCHARGE: Good. PRIMARY DIAGNOSES: 1. Cerebrovascular accident of the left centrum semiovale. 2. Right lateral rectus palsy. SECONDARY DIAGNOSES: Include: 1. Recurrent cerebrovascular accidents and transient ischemic attacks. 2. Hyperlipidemia. 3. Factor V Leiden mutation. 4. Obstructive sleep apnea. MEDICATIONS ON DISCHARGE: Include: 1. Lovenox 120 mg twice daily. 2. Coumadin 5 mg daily. 3. Praluent 75 mg every 12 days. 4. Crestor 5 mg at bedtime. 5. Keppra 750 mg twice daily. 6. Losartan 12.5 mg every other day. 7. Aspirin 81 mg daily. 8. Fluoxetine 60 mg daily. PERTINENT IMAGIN. Brain MRI, subtle restricted diffusion within the left centrum semiovale, most likely representing acute subacute infarct. 2. Head MRA, complete occlusion of the left ICA, likely chronic, this was known. No significant right carotid artery stenosis. HISTORY OF PRESENT ILLNESS AND HOSPITAL COURSE: This is a 58-year-old gentleman with past medical history as outlined in history of present illness on day of admission including factor V Leiden mutation as well as multiple TIAs and CVAs, presented to the hospital with diplopia on the day of increased stress , proceeding to a , presented to the hospital, found with right lateral rectus palsy concerning for new CVA which was identified on MRI, was identified an acute left subcortical lacunar infarct which was repeated for confirmation by neurologist, Dr. Fernández. There was diffuse white matter changes consistent with small vessel ischemia, increased compared to his brain MRI from [address] Fernández. Of note, his TIAs and CVAs have seemingly increased since the transition of Coumadin to Xarelto several years prior. His MRI indicates he is likely being having silent CVAs as well. He is being transitioned from Xarelto back to Coumadin with a Lovenox bridge. He is to start the Lovenox tomorrow and the Coumadin tomorrow as he already took Xarelto today. This was discussed at length with the patient. The patient has scheduled appointments with Ophthalmology starting tomorrow. I discussed the Lovenox to Coumadin bridge plan with his primary care provider as well as ordered labs to be performed at their clinic on the of the same day as his followup. Findings were also discussed with his primary neurologist, Dr. Neumann at [facility], who was likewise in agreement with plan. There were no complications during this patient's hospital stay. At followup please: 1. Ensure proper Lovenox to Coumadin bridging with serial INRs. 2. Ensure followup with Ophthalmology, which he has already scheduled. 3. No other specific labs or vitals that need followup. Reasons to return to the hospital including but not limited to recurrent or worsening symptoms including focal neurological sign being worsening diplopia, blindness, aphasia, asymmetric strength or weakness, paresthesias, bleeding from any source, confusion, syncope, or sign of confusion, loss of consciousness , near loss of consciousness, inability to obtain or tolerate medications assessed with the patient. He acknowledged understanding. TIME SPENT: Greater than 60 minutes were spent discharging the patient, greater than half was spent [id number] with the patient. [id number]/[facility] #: [id number] FRANKY
== END 2018-04-14 13:47 | disposition home or self-care (01) | DRG 65 ==
LOC: ED 15:10 → MEDTELE 18:01
PROVIDERS: ADMIT Internal Medicine; ATTEND Internal Medicine
PROC: 5A09357 Assistance with Respiratory Ventilation, Less than 24 Consecutive Hours, Continuous Positive Airway Pressure (ICD-10-PCS; principal; 2018-04-12)
DX: I63.81 Other cerebral infarction due to occlusion or stenosis of small artery (principal); D68.51 Activated protein C resistance; H53.2 Diplopia; I25.10 Atherosclerotic heart disease of native coronary artery without angina pectoris; I10 Essential (primary) hypertension; G47.33 Obstructive sleep apnea (adult) (pediatric); R47.81 Slurred speech; E78.5 Hyperlipidemia, unspecified; I65.22 Occlusion and stenosis of left carotid artery; I65.03 Occlusion and stenosis of bilateral vertebral arteries; H49.21 Sixth [abducent] nerve palsy, right eye; G47.30 Sleep apnea, unspecified; R00.0 Tachycardia, unspecified; F41.9 Anxiety disorder, unspecified; Z95.5 Presence of coronary angioplasty implant and graft; Z86.73 Personal history of transient ischemic attack (TIA), and cerebral infarction without residual deficits; Z88.8 Allergy status to other drugs, medicaments and biological substances; Z87.820 Personal history of traumatic brain injury; Z82.49 Family history of ischemic heart disease and other diseases of the circulatory system; Z87.891 Personal history of nicotine dependence; Z80.42 Family history of malignant neoplasm of prostate; Z83.3 Family history of diabetes mellitus; Z79.82 Long term (current) use of aspirin; Z79.01 Long term (current) use of anticoagulants
CPT/HCPCS: 36415; 70450; 70544; 70547; 70551; 70553; 71045; 80053; 80061; 81003; 82607; 83036; 83519; 83605; 84439; 84443; 84484; 85025; 85610; 85652; 85730; 86140; 93005; 93306; 94660; 99284; A9270-GY; A9579

== ENCOUNTER 2018-07-05 19:26 | Emergency (ER) | payer OTHER ==
--- OUTSIDE RECORDS SUMMARY | 2018-07-05 19:41 | XMS REPORT | Continuity of Care Document ---
:1960 External Reference #:[id number] Author Name Fabiola Elmore Care Team Providers Name Role Phone Trey Wong MD Primary Care Physician Unavailable Payers Date Identification Numbers Payment Provider Subscriber Effective: 2012 Policy Number: [id number] [facility] Odalis Nelson Group Number: [id number] [address] PayID: [id number] [place] [address] Expires: 2012 Policy Number: [id number] [facility] Odalis Nelson Group Number: [id number] [address] PayID: [id number] [place] [address] Problems Active Problems Provider Date Benign essential hypertension Chris Das M.D. Onset: 11/29/2010 Coronary arteriosclerosis Chris Das M.D. Onset: 04/10/2011 Morbid obesity Chris Das M.D. Onset: 04/10/2011 Obstructive sleep apnea syndrome Liane Palencia MD Onset: 06/05/2014 Insomnia Liane Palencia MD Onset: 06/05/2014 Obesity Liane Palencia MD Onset: 06/05/2014 Family History Date Family Member(s) Observation Comments General Cancer General Diabetes General Heart Disease General Hypertension General Stroke Father cancer Father due to Cancer, () Prostate : (age 68 Father due to Cancer, Years) Bladder Mother Congestive Heart Failure (CHF) Siblings 3 sisters, 1 with diabetes : (age 82 Paternal Grandfather due to Cancer Years) : (age 67 Paternal Grandmother due to [place] Years) : (age 92 Maternal Grandfather due to Unknown Years) Causes : (age 90 Maternal Grandmother due to Unknown Years) Causes Paternal Uncles [place] Age 52 yrs Social History Type Date Description Comments Sex Unknown Marital Status Lives With 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 Recreational Drug Use Denies Drug Use Smoking Status Reviewed: 07/01/18 Patient is a former Quit smoking in smoker January 2010. Exercise Type/Frequency Exercises regularly Allergies, Adverse Reactions, Alerts Active Allergies Reaction Severity Comments Date Lipitor 09/18/2014 Zolpidem 09/18/2014 Medications Active Medications SIG Qnty Indications Ordering Date Provider Magnesium Oxide -[facility] Supplement capsule/tablet daily Jennifer Das 250mg by mouth Tablets Praluent 1 milliliters 6ml E78.00 Stephie Bills, 11/16/2017 75mg/ml injection N.P. Solution Pen-Inject subcutaneously twice a month Keppra 1 by mouth in the [facility]. 11/16/2017 750mg morning, 1 by mouth Jennifer Das Tablets at bedtime. Rosuvastatin 1 by mouth every [facility]tabs [facility] 06/25[facility]2017 Calcium night at bedtime Jennifer Das 5mg Tablets Losartan Potassium 1/2 tab by mouth on 45tabs [facility] 01/14/2017 odd days Jennifer Das 25mg Tablets Warfarin Sodium 1.5 tab by mouth Unknown 5mg every day or as Tablets directed managed by PCP Fluoxetine HCL 1 tab by mouth every Unknown 60mg day Tablets Aspirin 1 tablet po daily Unknown 81mg Cialis every day as needed Unknown 10mg Tablets Cpap qhs Unknown History Medications Rosuvastatin Calcium 1 by mouth every 30tabs Stephie Bills, 06/25/2017 - 20mg day N.P. 06/25/2017 Tablets Rosuvastatin Calcium 1 by mouth every 90tabs [facility] 06/17/2017 - 5mg night at bedtime Jennifer Das 06/25/2017 Tablets Rosuvastatin Calcium 1/2 by mouth every Chris Sridevi 05/26/2017 - 20mg day 05/25 Hold Jennifer Das 06/17/2017 Tablets Rosuvastatin Calcium take 1 tablet by 90tabs Chris Waddell 04/28/2017 - 5mg mouth every evening Jennifer Das 05/26/2017 Tablets 05/21 Hold Chlorthalidone 1 by mouth every Unknown 09/06/2014 - 25mg day 09/18/2014 Tablets Klor-Con M20 2 by mouth every 30tabs Chris Sridevi 05/18/2014 - 20Meq day x 1 week, then Jennifer Das 06/04/2014 Tablets ER 1 by mouth daily Chlorthalidone 1/2 by mouth every 45tabs Chris Waddell 05/02/2013 - 25mg day in the morning Jennifer Das 09/06/2014 Tablets on odd days (hold 04/18) Aspir-81 1 by mouth every Chris Sridevi 05/02/2013 - 81mg Tablets Jennifer Das 06/04/2014 Chlorthalidone 1/2 po qd 45tabs Chris Waddell 01/21/2012 - 25mg Jennifer Das 05/02/2013 Tablets Crestor 1 pill by mouth 30tabs Chris Waddell 05/01/2011 - 10mg Tablets daily Jennifer Das 09/18/2014 Lisinopril 1 po qd 90tabs Chris Waddell 04/10/2011 - 2.5mg Tablets Jennifer Das 06/04/2014 Amlodipine Besylate 1/2 po qd 30tabs Chris Waddell 03/26/2011 - 10mg Jennifer Das 04/10/2011 Tablets Plavix 1 po qd 30tabs Ade 08/15/2010 - 75mg Tablets Maida Tenorio. Unknown Androgel one injection every Chris Sridevi 11/22/2002 - PT Unsure Dose 3 weeks Jennifer Das 07/31/2010 Gel Testosterone every other week 3Months Unknown - 200mg Inj 06/04/2014 Losartan Potassium 1/2 tab po daily Unknown - 25mg 12/21/2016 Tab Warfarin Sodium po as directed Unknown - 6mg Tab 05/11/2016 Crestor 1 by mouth every Unknown - 20mg Tablets day 05/11/2016 Furosemide 1 by mouth in the Unknown - 20mg Tablets morning prn for 04/27/2017 swelling Viagra by mouth 0.5 or 1 Unknown - 100mg Tablets tab 15 minutes 05/11/2016 before intercourse Omeprazole 1 by mouth every Unknown - 20mg Capsules day 05/11/2016 Aspirin 1 by mouth every Unknown - 81mg Tablets day 05/11/2016 Fluoxetine HCL 1 by mouth every Unknown - 40mg day 04/27/2017 Capsules Fluoxetine HCL 1 by mouth every Unknown - 20mg day 04/27/2017 Capsules Rosuvastatin Calcium 1 by mouth every Unknown - 20mg day 04/28/2017 Tablets Xarelto 1 by mouth every Unknown - 20mg Tablets day 05/07/2018 Keppra 1 by mouth twice a Unknown - 500mg Tablets day 11/16/2017 Fish Oil liquid, dose known Unknown - Capsules 04/10/2011 Aspir-Carey qd Unknown - 325mg Tablets 05/02/2013 Testosterone one injection every Unknown - Gel 5 weeks 08/15/2010 Omeprazole 1 po qd 30caps Unknown - 20mg Capsules 08/15/2010 Amlodipine Besylate 1 po qd 90tabs Unknown - 10mg 03/26/2011 Tablets Nitrostat one sl q5min up to 25tabs Unknown - 0.4mg Tablets 3 doses prn Unknown Sub Imdur 1 po qd 30tabs Unknown - 30mg Tablets ER 08/15/2010 24HR Trileptal 1 po bid Unknown - 600mg Tablets 11/29/2010 Pravastatin Sodium 1 po qd 90tabs Unknown - 20mg 05/01/2011 Tablets Buspirone HCL 1.5 po qd 180tabs Unknown - 10mg 05/11/2016 Tablets Ambien CR 1 qhs prn 30tabs Unknown - 6.25mg Tablets 06/04/2014 ER Viagra 1/2 - 1 tab po 15" 6tabs Unknown - 100mg Tablets prior to 07/31/2010 intercourse. Nicotrol Inhaler 1 q1-2 hr prn 150units Unknown - 10mg 04/10/2011 Inhaler Metoprolol Succinate 1/2 tablet po qod 30tabs Unknown - ER on 10.11 and 10.13 12/07/2016 25mg Tablets ER 24HR and 10.15 and 10.17.17 and then discontinue Medications Administered in Office Medication SIG Qnty Indications Ordering Provider Date Celestone 3 mg and 3mg Pramod Ladd MD 10/08/2016 Injection Celestone 3 mg and 3mg Pramod Ladd MD 09/10/2016 Injection Vital Signs Date Vital Result Comment 07/01/2018 11:24am Height 70 inches 5'10" Weight 264.38 lb Clothes Heart Rate 64 /min Radial BP Systolic Sitting 128 mmHg Lue reg cuff BP Diastolic Sitting 86 mmHg Lue reg cuff BP Systolic Standing 126 mmHg Lue reg cuff BP Diastolic Standing 84 mmHg Lue reg cuff BMI (Body Mass Index) 37.9 kg/m2 Ejection Fraction 55-60% Echo 04/14/2018 02/18/2018 12:10pm Height 70 inches 5'10" Weight 270.00 lb Heart Rate 53 /min BP Systolic Sitting 124 mmHg BP Diastolic Sitting 80 mmHg O2 % BldC Oximetry 97 % BMI (Body Mass Index) 38.7 kg/m2 Neck Circumference in inches 18.25 02/15/2018 3:23pm Height 70 inches 5'10" Weight 270.12 lb Heart Rate 72 /min BP Systolic Sitting 118 mmHg BP Diastolic Sitting 74 mmHg BMI (Body Mass Index) 38.8 kg/m2 Ejection Fraction 55-60% stress echo 05/14/16 11/16/2017 12:58pm Height 70 inches 5'10" Weight 262.00 lb without shoes Heart Rate 64 /min BP Systolic Sitting 118 mmHg lue/regular cuff BP Diastolic Sitting 80 mmHg lue/regular cuff Respiratory Rate 16 /min BMI (Body Mass Index) 37.6 kg/m2 Ejection Fraction 55-60% stress echo. 05/14/2016 06/25/2017 10:58am Height 70 inches 5'10" Weight 254.50 lb w/shoes Heart Rate 64 /min BP Systolic Sitting 112 mmHg L/A Lg Cuff BP Diastolic Sitting 68 mmHg L/A Lg Cuff BMI (Body Mass Index) 36.5 kg/m2 Ejection Fraction 55-60% echo 05/14/2016 04/28/2017 12:56pm Height 70 inches 5'10" Weight 250.25 lb w/shoes Heart Rate 62 /min BP Systolic 118 mmHg L/Arm Reg Cuff BP Diastolic 74 mmHg L/Arm Reg Cuff BP Systolic Standing 128 mmHg L/Arm Reg Cuff BP Diastolic Standing 80 mmHg L/Arm Reg Cuff BP Systolic Lying Down 101 mmHg la repeat sitting BP Diastolic Lying Down 60 mmHg la repeat sitting BMI (Body Mass Index) 35.9 kg/m2 Ejection Fraction 55-60% Stress Test 05/14/2016 02/19/2017 9:51am Height 70 inches 5'10" Weight 243.50 lb without shoes Heart Rate 72 /min BP Systolic Sitting 106 mmHg LA, l cuff BP Diastolic Sitting 74 mmHg LA, l cuff BMI (Body Mass Index) 34.9 kg/m2 Ejection Fraction 55%-60% stress test 05/14/16 01/09/2017 11:59am Heart Rate 72 /min BP Systolic 136 mmHg Ra, l cuff BP Diastolic 78 mmHg Ra, l cuff BP Systolic Sitting 140 mmHg LA, l cuff BP Diastolic Sitting 82 mmHg LA, l cuff BP Systolic Standing 138 mmHg Ra, l cuff BP Diastolic Standing 80 mmHg Ra, l cuff 12/08/2016 3:26pm Height 70 inches 5'10" Weight 237.50 lb with shoes Heart Rate 56 /min BP Systolic Sitting 116 mmHg LA lrg cuff BP Diastolic Sitting 70 mmHg LA lrg cuff BMI (Body Mass Index) 34.1 kg/m2 Ejection Fraction 55% - 60% stress test 05/14/16 11/17/2016 3:04pm Height 70 inches 5'10" Weight 237.00 lb with out shoes Heart Rate 50 /min BP Systolic 100 mmHg Rue lg cuff sit BP Diastolic 70 mmHg Rue lg cuff sit BP Systolic Sitting 90 mmHg Rue lg cuff BP Diastolic Sitting 64 mmHg Rue lg cuff BP Systolic Standing 130 mmHg Rue lg cuff BP Diastolic Standing 90 mmHg Rue lg cuff Respiratory Rate 16 /min BMI (Body Mass Index) 34.0 kg/m2 10/08/2016 3:55pm Height 70 inches 5'10" Weight 235.00 lb Heart Rate 44 /min BP Systolic 105 mmHg BP Diastolic 55 mmHg Respiratory Rate 16 /min BMI (Body Mass Index) 33.7 kg/m2 09/10/2016 4:24pm Height 70 inches 5'10" Weight 237.00 lb BP Systolic 140 mmHg BP Diastolic 90 mmHg Body Temperature 98.7 F Pain Level 0 BMI (Body Mass Index) 34.0 kg/m2 06/05/2016 3:00pm Height 70 inches 5'10" Weight 237.00 lb w/shoes Heart Rate 58 /min BP Systolic Sitting 104 mmHg LA lg cuff BP Diastolic Sitting 62 mmHg LA lg cuff BMI (Body Mass Index) 34.0 kg/m2 Ejection Fraction 55-60% Stress Echo 05/14/16 05/13/2016 9:19am Height 70 inches 5'10" Weight 241.75 lb with shoes Heart Rate 62 /min BP Systolic Sitting 100 mmHg LA lrg cuff BP Diastolic Sitting 62 mmHg LA lrg cuff BMI (Body Mass Index) 34.7 kg/m2 Ejection Fraction 55% - 60% echo 09/05/14 09/07/2014 3:28pm Height 70 inches 5'10" Weight 265.00 lb Heart Rate 104 /min BP Systolic Sitting 128 mmHg BP Diastolic Sitting 74 mmHg Respiratory Rate 20 /min O2 % BldC Oximetry 96 % BMI (Body Mass Index) 38.0 kg/m2 06/05/2014 10:08am Height 70 inches 5'10" Weight 250.00 lb Heart Rate 68 /min BP Systolic Sitting 126 mmHg BP Diastolic Sitting 80 mmHg Body Temperature 97.0 F O2 % BldC Oximetry 91 % BMI (Body Mass Index) 35.9 kg/m2 Neck Circumference in inches 19 05/02/2013 9:41am Height 71 inches 5'11" Weight 262.00 lb Heart Rate 60 /min BP Systolic Sitting 124 mmHg BP Diastolic Sitting 60 mmHg BMI (Body Mass Index) 36.5 kg/m2 05/06/2012 8:55am Height 71 inches 5'11" Weight 254.00 lb Heart Rate 84 /min BP Systolic 128 mmHg BP Diastolic 76 mmHg Respiratory Rate 20 /min BMI (Body Mass Index) 35.4 kg/m2 01/21/2012 9:32am Height 71 inches 5'11" Weight 254.00 lb Heart Rate 50 /min BP Systolic 140 mmHg BP Diastolic 90 mmHg Respiratory Rate 16 /min BMI (Body Mass Index) 35.4 kg/m2 05/01/2011 10:48am Height 71 inches 5'11" Weight 240.00 lb Heart Rate 64 /min BP Systolic 118 mmHg BP Diastolic 70 mmHg BMI (Body Mass Index) 33.5 kg/m2 04/10/2011 10:01am Height 71 inches 5'11" Weight 242.00 lb Heart Rate 72 /min BP Systolic 114 mmHg BP Diastolic 62 mmHg BMI (Body Mass Index) 33.7 kg/m2 11/29/2010 9:45am Height 71 inches 5'11" Weight 248.00 lb Heart Rate 55 /min BP Systolic 118 mmHg BP Diastolic 66 mmHg BMI (Body Mass Index) 34.6 kg/m2 08/15/2010 11:20am Height 71 inches 5'11" Heart Rate 58 /min reg BP Systolic Sitting 130 mmHg BP Diastolic Sitting 90 mmHg 07/31/2010 1:51pm Height 70 inches 5'10" Weight 255.00 lb Heart Rate 57 /min BP Systolic 120 mmHg BP Diastolic 80 mmHg BP Systolic Sitting 120 mmHg BP Diastolic Sitting 80 mmHg BP Systolic Standing 130 mmHg BP Diastolic Standing 80 mmHg Respiratory Rate 16 /min BMI (Body Mass Index) 36.6 kg/m2 11/23/2002 2:40pm Height 70 inches Weight 224.00 lb Heart Rate 72 /min BP Systolic Sitting 120 mmHg BP Diastolic Sitting 70 mmHg BP Systolic Standing 124 mmHg BP Diastolic Standing 80 mmHg BMI (Body Mass Index) 32.1 kg/m2 Results Test Date Facility Test Result H/L Range Note Lipid Panel - 05/06/2018 [facility] Creatine 52 U/L N 10-[address] Kinase(CK) [place] [address] [phone] Comp Metabolic 05/06/2018 [facility] Sodium 143 mmol/L N 135- [address] [place] [address] [phone] Potassium 4.7 mmol/L N 3.5-5.0 Chloride 105 mmol/L N 101-111 Co2 Carbon Dioxide 30 mmol/L N 22-32 Anion Gap 8 mmol/L N 2-11 Glucose 70 mg/dL N 70-100 Blood Urea Nitrogen 24 mg/dL N 6-24 Creatinine 0.81 mg/dL N 0.67-1.17 BUN/Creatinine Ratio 29.6 High 8-20 Calcium 9.6 mg/dL N 8.6-10.3 Total Protein 6.2 g/dL Low 6.4-8.9 Albumin 4.4 g/dL N 3.2-5.2 Globulin 1.8 g/dL Low 2-4 Albumin/Globulin Ratio 2.4 N 1-3 Total Bilirubin 0.30 mg/dL N 0.2-1.0 Alkaline Phosphatase 69 U/L N 34-104 Alt 20 U/L N 7-52 Ast 15 U/L N 13-39 Egfr Non- 97.9 >60 Egfr 118.4 >60 2 Lipid Profile 05/06/2018 [facility] Triglycerides 195 mg/dL 3 (Trig/Chol/HDL) [address] [place] [address] [phone] Cholesterol 142 mg/dL 4 HDL Cholesterol 38.2 mg/dL 5 LDL Cholesterol 65 mg/dL 6 CBC Auto Diff 05/06/2018 [facility] White Blood 5.1 10^3/uL N 3.5-10.[address] [place] [address] [phone] Red Blood Count 4.86 10^6/uL N 4.18-5.48 Hemoglobin 14.3 g/dL N 14.0-18.0 Hematocrit 43 % N 36-46 Mean Corpuscular Volume 87 fL N 80-94 Mean Corpuscular Hemoglobin 29 pg N 27-31 Mean Corpuscular HGB Conc 34 g/dL N 31-36 Red Cell Distribution Width 14 % N 10.5-15 Platelet Count 252 10^3/uL N 150-450 Mean Platelet Volume 7.7 fL N 7.4-10.4 Abs Neutrophils 3.3 10^3/uL N 1.5-7.7 Abs Lymphocytes 1.1 10^3/uL N 1.0-4.8 Abs Monocytes 0.4 10^3/uL N 0-0.8 Abs Eosinophils 0.2 10^3/uL N 0-0.6 Abs Basophils 0 10^3/uL N 0-0.2 Abs Nucleated RBC 0 10^3/uL Granulocyte % 65.0 % Lymphocyte % 21.7 % Monocyte % 8.2 % Eosinophil % 4.5 % Basophil % 0.6 % Nucleated Red Blood Cells % 0 Laboratory test 05/06/2018 [facility] Magnesium 1.8 mg/dL Low 1.9-2.7 7 finding [address] [place] [address] [phone] TSH (Thyroid Stim Horm) 1.40 mcIU/mL N 0.34-5.60 8 Laboratory test 09/09/2017 [facility] Creatine 55 U/L N 10- 223 [address] Kinase(CK) [place] [address] [phone] TSH (Thyroid Stim Horm) 1.98 mcIU/mL N 0.34-5.60 10 Lipid Profile 09/09/2017 [facility] Triglycerides 164 mg/dL 11 (Trig/Chol/HDL) [address] [place] [address] [phone] Cholesterol 201 mg/dL 12 HDL Cholesterol 34.5 mg/dL 13 LDL Cholesterol 134 mg/dL 14 Comp Metabolic Panel 09/09/2017 [facility] Sodium 139 mmol/L N 135-145 [address] [place] [address] [phone] Potassium 4.3 mmol/L N 3.5-5.0 Chloride 103 mmol/L N 101-111 Co2 Carbon Dioxide 26 mmol/L N 22-32 Anion Gap 10 mmol/L N 2-11 Glucose 101 mg/dL High 70-100 Blood Urea Nitrogen 15 mg/dL N 6-24 Creatinine 0.76 mg/dL N 0.67-1.17 BUN/Creatinine Ratio 19.7 N 8-20 Calcium 9.4 mg/dL N 8.6-10.3 Total Protein 6.2 g/dL Low 6.4-8.9 Albumin 4.4 g/dL N 3.2-5.2 Globulin 1.8 g/dL Low 2-4 Albumin/Globulin Ratio 2.4 N 1-3 Total Bilirubin 0.50 mg/dL N 0.2-1.0 Alkaline Phosphatase 73 U/L N 34-104 Alt 18 U/L N 7-52 Ast 14 U/L N 13-39 Egfr Non- 105.7 >60 Egfr 127.9 >60 15 CBC Auto Diff 09/09/2017 [facility] White Blood 5.1 10^3/uL N 3.5-10.[address] [place] [address] [phone] Red Blood Count 4.94 10^6/uL N 4.00-5.40 Hemoglobin 14.4 g/dL N 14.0-18.0 Hematocrit 42 % N 42-52 Mean Corpuscular Volume 85 fL N 80-94 Mean Corpuscular Hemoglobin 29 pg N 27-31 Mean Corpuscular HGB Conc 34 g/dL N 31-36 Red Cell Distribution Width 13 % N 10.5-15 Platelet Count 231 10^3/uL N 150-450 Mean Platelet Volume 7.7 um3 N 7.4-10.4 Abs Neutrophils 3.3 10^3/uL N 1.5-7.7 Abs Lymphocytes 1.2 10^3/uL N 1.0-4.8 Abs Monocytes 0.5 10^3/uL N 0-0.8 Abs Eosinophils 0.1 10^3/uL N 0-0.6 Abs Basophils 0 10^3/uL N 0-0.2 Abs Nucleated RBC 0 10^3/uL Granulocyte % 63.7 % N 38-83 Lymphocyte % 22.5 % Low 25-47 Monocyte % 10.3 % High 0-7 Eosinophil % 2.9 % N 0-6 Basophil % 0.6 % N 0-2 Nucleated Red Blood Cells % 0 Lipid Panel - 06/16/2017 [facility] Creatine 59 U/L N 10-[address] Kinase(CK) [place] [address] [phone] Comp Metabolic 06/16/2017 [facility] Sodium 141 N 139-[address] mmol/[place] [address] [phone] Potassium 4.3 mmol/L N 3.5-5.0 Chloride 106 mmol/L N 101-111 Co2 Carbon Dioxide 28 mmol/L N 22-32 Anion Gap 7 mmol/L N 2-11 Glucose 105 mg/dL High 70-100 Blood Urea Nitrogen 19 mg/dL N 6-24 Creatinine 0.80 mg/dL N 0.67-1.17 BUN/Creatinine Ratio 23.8 High 8-20 Calcium 9.7 mg/dL N 8.6-10.3 Total Protein 6.2 g/dL Low 6.4-8.9 Albumin 4.4 g/dL N 3.2-5.2 Globulin 1.8 g/dL Low 2-4 Albumin/Globulin Ratio 2.4 N 1-3 Total Bilirubin 0.40 mg/dL N 0.2-1.0 Alkaline Phosphatase 80 U/L N 34-104 Alt 14 U/L N 7-52 Ast 13 U/L N 13-39 Egfr Non- 99.6 >60 Egfr 128.1 >60 16 Lipid Profile 06/16/2017 [facility] Triglycerides 182 mg/dL 17 (Trig/Chol/HDL) [address] [place] [address] [phone] Cholesterol 278 mg/dL 18 HDL Cholesterol 39.3 mg/dL 19 LDL Cholesterol 202 mg/dL 20 CBC Auto Diff 06/16/2017 [facility] White Blood 4.5 10^3/uL N 3.5-10.[address] [place] [address] [phone] Red Blood Count 4.97 10^6/uL N 4.0-5.4 Hemoglobin 14.4 g/dL N 14.0-18.0 Hematocrit 43 % N 42-52 Mean Corpuscular Volume 86 fL N 80-94 Mean Corpuscular Hemoglobin 29 pg N 27-31 Mean Corpuscular HGB Conc 34 g/dL N 31-36 Red Cell Distribution Width 14 % N 10.5-15 Platelet Count 230 10^3/uL N 150-450 Mean Platelet Volume 8.4 um3 N 7.4-10.4 Abs Neutrophils 2.9 10^3/uL N 1.5-7.7 Abs Lymphocytes 1.0 10^3/uL N 1.0-4.8 Abs Monocytes 0.4 10^3/uL N 0-0.8 Abs Eosinophils 0.2 10^3/uL N 0-0.6 Abs Basophils 0 10^3/uL N 0-0.2 Abs Nucleated RBC 0 10^3/uL Granulocyte % 64.6 % N 38-83 Lymphocyte % 21.7 % Low 25-47 Monocyte % 9.2 % High 0-7 Eosinophil % 3.9 % N 0-6 Basophil % 0.6 % N 0-2 Nucleated Red Blood Cells % 0.4 Laboratory test 06/16/2017 [facility] TSH (Thyroid 2.23 mcIU/mL N 0.34-5.[address] Stim Horm) [place] [address] [phone] Lipid Panel - 11/17/2016 [facility] Creatine <pending> [facility] Kinase(CK) [place] [address] [phone] Laboratory test 11/17/2016 [facility] TSH (Thyroid <pending> finding DRIVE Stim Horm) [place] [address] [phone] Magnesium <pending> Basic Metabolic Panel 06/01/2014 [facility] Sodium 139 mmol/L N 133-145 [place] [address] [phone] Potassium 4.2 mmol/L N 3.5-5.0 Chloride 106 mmol/L N 101-111 Co2 Carbon Dioxide 29 mmol/L N 22-32 Anion Gap 4 mmol/L N 2-11 Glucose 119 mg/dL High 70-100 Blood Urea Nitrogen 17 mg/dL N 6-24 Creatinine 0.83 mg/dL N 0.67-1.17 BUN/Creatinine Ratio 20.5 High 8-20 Calcium 8.8 mg/dL N 8.6-10.3 Egfr Non- 96.5 N >60 Egfr 124.2 N >60 21 Basic Metabolic Panel 06/15/2012 [facility] Sodium 140 mmol/L [address] [place] [address] [phone] Potassium 4.6 mmol/L 3.5-5.0 Chloride 106 mmol/L 101-111 Co2 Carbon Dioxide 28.0 mmol/L 22-32 Anion Gap 6.0 mmol/L 2-11 Glucose 100 mg/dL 70-100 Blood Urea Nitrogen 29 mg/dL High 6-24 Creatinine 0.80 mg/dL 0.50-1.40 BUN/Creatinine Ratio 36.3 High 8-20 Calcium 9.7 mg/dL 8.1-9.9 Egfr Non- 101.5 >60 Egfr 130.6 >60 22 Laboratory test 06/15/2012 [facility] Magnesium 1.8 mg/dL 1.7 -2.6 finding [address] [place] [address] [phone] Basic Metabolic 02/09/2012 [facility] Sodium 140 mmol/L 133- 145 Panel [address] [place] [address] [phone] Potassium 4.2 mmol/L 3.5-5.0 Chloride 101 mmol/L 101-111 Co2 Carbon Dioxide 29.0 mmol/L 22-32 Anion Gap 10.0 mmol/L 2-11 Glucose 114 mg/dL High 70-100 Blood Urea Nitrogen 29 mg/dL High 6-24 Creatinine 1.00 mg/dL 0.50-1.40 BUN/Creatinine Ratio 29.0 High 8-20 Calcium 9.4 mg/dL 8.1-9.9 Egfr Non- 78.8 >60 Egfr 101.3 >60 23 Comp Metabolic Panel 01/22/2012 [facility] Sodium 140 mmol/L 133-145 [address] [place] [address] [phone] Potassium 4.5 mmol/L 3.5-5.0 Chloride 108 mmol/L 101-111 Co2 Carbon Dioxide 25.0 mmol/L 22-32 Anion Gap 7.0 mmol/L 2-11 Glucose 74 mg/dL 70-100 Blood Urea Nitrogen 21 mg/dL 6-24 Creatinine 0.90 mg/dL 0.50-1.40 BUN/Creatinine Ratio 23.3 High 8-20 Calcium 9.4 mg/dL 8.1-9.9 Total Protein 5.9 g/dL Low 6.2-8.1 Albumin 4.2 g/dL 3.6-5.4 Globulin 1.7 g/dL Low 2-4 Albumin/Globulin Ratio 2.5 1-3 Total Bilirubin 0.9 mg/dL 0.4-1.5 Alkaline Phosphatase 60 U/L 30-110 Alt 32 U/L 14-54 Ast 23 U/L 12-42 Egfr Non- 89.0 >60 Egfr 114.4 >60 24 Laboratory test 01/22/2012 [facility] Creatine Kinase 147 U/L 0-200 finding [address] [place] [address] [phone] TSH (Thyroid Stimulating Horm) 2.24 MIU/ML 0.34-5.60 B Type Natriuretic Peptide 14.0 pg/mL 0-100 CBC Auto Diff 01/22/2012 [facility] White Blood 5.1 10^3/uL 4.8-10.[address] [place] [address] [phone] Red Blood Count 5.72 10^6/uL High 4.0-5.4 Hemoglobin 17.1 g/dL 14.0-18.0 Hematocrit 51 % 42-52 Mean Corpuscular Volume 90 fL 80-94 Mean Corpuscular Hemoglobin 30 pg 27-31 Mean Corpuscular HGB Conc 33 g/dL 31-36 Red Cell Distribution Width 13 % 10.5-15 Platelet Count 191 10^3/uL 150-450 Mean Platelet Volume 9 um3 7.4-10.4 Abs Neutrophils 3.1 10^3/uL 1.5-7.7 Abs Lymphocytes 1.2 10^3/uL 1.0-4.8 Abs Monocytes 0.6 10^3/uL 0-0.8 Abs Eosinophils 0.2 10^3/uL 0-0.6 Abs Basophils 0 10^3/uL 0-0.2 Abs Nucleated RBC 0 10^3/uL Granulocyte % 60.5 % 38-83 Lymphocyte % 23.5 % Low 25-47 Monocyte % 11.8 % High 1-9 Eosinophil % 3.7 % 0-6 Basophil % 0.5 % 0-2 Nucleated Red Blood Cells % 0 Lipid Profile 08/22/2011 [facility] Triglyceride 90 mg/dL 40- 200 (Trig/Chol/HDL) [address] [place] [address] [phone] Cholesterol 146 mg/dL Less Than 200 25 High Density Lipoprotein 31 mg/dL Low 40-60 26 Cholesterol/HDL Ratio 4.71 AVERAGE 1-4.97 Low Density Lipoprotein 97 mg/dL Less Than 100 27 Comp Metabolic Panel 08/22/2011 [facility] Sodium 139 mmol/L 135-[address] [place] [address] [phone] Potassium 4.4 mmol/L 3.5-5.0 Chloride 108 mmol/L 101-111 Co2 (Carbon Dioxide) 25.0 mmol/L 22-32 Anion Gap 6.0 mmol/L 2-11 28 Glucose 111 mg/dL High 70-100 BUN 32 mg/dL High 6-24 Creatinine 0.8 mg/dL 0.50-1.40 One Over Creatinine 1.25 BUN/Creatinine Ratio 40.0 High 8-20 Calcium 9.3 mg/dL 8.1-9.9 Total Protein 5.8 GM/DL Low 6.2-8.1 Albumin 3.9 GM/DL 3.6-5.4 Globulin 1.9 GM/DL Low 2-4 Albumin/Globulin Ratio 2.1 1-3 Bilirubin Total 0.6 mg/dL 0.4-1.5 29 Alkaline Phosphatase 63 U/L 39-117 Alt (SGPT) 29 U/L 17-63 Ast (Sgot) 19 U/L 12-42 eGFR Non- 101.9 > 60 eGFR 131.1 > 60 30 Laboratory test 08/22/2011 [facility] CPK (Creatine 96 U/L 0- [address] Kinase) [place] [address] [phone] Lipid Profile 04/30/2011 [facility] Triglyceride 73 mg/dL 40- 200 31 (Trig/Chol/HDL) [address] [place], [place] [id number] [phone] Cholesterol 224 mg/dL High Less Than 200 32 High Density Lipoprotein 35 mg/dL Low 40-60 33 Cholesterol/HDL Ratio 6.40 AVERAGE High 1-4.97 Low Density Lipoprotein 174 mg/dL High Less Than 100 34 Laboratory test 04/30/2011 [facility] CPK (Creatine 94 U/L 0- [address] Kinase) [place] [address] [phone] Comp Metabolic 04/30/2011 [facility] Sodium 140 135-[address] mmol/L [place], [place] [id number] [phone] Potassium 4.9 mmol/L 3.5-5.0 Chloride 107 mmol/L 101-111 Co2 (Carbon Dioxide) 25.0 mmol/L 22-32 Anion Gap 8.0 mmol/L 2-11 35 Glucose 109 mg/dL High 70-100 BUN 16 mg/dL 6-24 Creatinine 0.8 mg/dL 0.50-1.40 One Over Creatinine 1.25 BUN/Creatinine Ratio 20.0 8-20 Calcium 8.9 mg/dL 8.1-9.9 Total Protein 6.0 GM/DL Low 6.2-8.1 Albumin 4.0 GM/DL 3.6-5.4 Globulin 2.0 GM/DL 2-4 Albumin/Globulin Ratio 2.0 1-3 Bilirubin Total 0.5 mg/dL 0.4-1.5 36 Alkaline Phosphatase 65 U/L 39-117 Alt (SGPT) 23 U/L 17-63 Ast (Sgot) 19 U/L 12-42 eGFR Non- 101.9 > 60 eGFR 131.1 > 60 37 MRSA/Vre Screen 08/01/2010 [facility] MRSA/Vre Culture [facility]ICU [address] [place] [address] [phone] Protime 07/31/2010 [facility] Inr 0.96 0.82-1.[address] 7 [place] [address] [phone] Protime 11.3 SEC 10.2-14.8 40 Basic Metabolic Panel 07/31/2010 [facility] Sodium 141 mmol/L 135-[address] [place] [address] [phone] Potassium 4.0 mmol/L 3.5-5.0 Chloride 107 mmol/L 101-111 Co2 (Carbon Dioxide) 28.0 mmol/L 22-32 Anion Gap 6.0 mmol/L 2-11 41 Glucose 90 mg/dL 70-100 BUN 16 mg/dL 6-24 Creatinine 0.90 mg/dL 0.50-1.40 One Over Creatinine 1.10 BUN/Creatinine Ratio 17.8 8-20 Calcium 9.4 mg/dL 8.1-9.9 eGFR Non- 89.3 > 60 eGFR 114.9 > 60 42 CBC With Manual 07/31/2010 [facility] White Blood 6.3 CUMM 4.8-10.[address] [place] [address] [phone] Red Cell Count 5.03 CUMM 4.6-6.2 Hemoglobin 15.3 g/dL 14.0-18.0 Hematocrit 46 % 42-52 Mean Corpuscular Volume 90 um3 80-94 Mean Corpuscular Hemoglob 30 pg 27-31 Mean Corpuscular HGB Cone 34 g/dL 32-36 Redcell Distribution WDTH 13 % 10.5-15 Platelet Count 201 CUMM 150-450 Mean Platelet Volume 8.5 um3 7.4-10.4 Polysegmented Neutrophil 67 % 38-83 Band Neutrophil 1 % 0-8 Lymphocyte 25 % 25-47 Monocyte 7 % 0-13 Absolute Neutrophil Count 4.2 RBC Morphology NORMAL Cath Panel 07/31/2010 [facility] PTT (Aptt) 33.8 25.15-38.53 [address] [place] [address] [phone] Laboratory test 01/25/2010 [facility] Protein C 83 % 70-150 43 finding 101 [facility] [place] [place] [address] [phone] Protein S Activity 83 % 65-160 44 Cardiolipin 01/25/2010 [facility] Cardiolipin Igg AB <4.0 GPL () 45 Igg,Igm,Iga AB [address] [place] [phone] [phone] Cardiolipin Igm AB <4.0 MPL () 46 Cardiolipin Iga AB <4.0 APL () 47 Laboratory test 01/25/2010 [facility] Homocysteine 10 mcmol/L () 48 finding [address] [place] [address] [phone] Factor 5 Leiden 01/25/2010 [facility] Factor 5 Leiden . () [address] [place] [address] [place] [address] [phone] Factor 5 Leiden Mut Result Heterozygous Negative 50 Factor 5 Leiden Mut Interp . () 51 Reviewed By Melissa Webb MD () 52 Lupus Anticoagulant 01/25/2010 [facility] Prothrombin Time 9.2 s 8.3-10.8 AB [address] [place] [address] [phone] Inr 1.0 0.9-1.2 PT Mix 1:1 SEE BELOW s () 53 Aptt 30 s 21-33 Aptt Mix 1:1 SEE BELOW s () 54 Platelet Neutralization Proced SEE BELOW () 55 DRVVT Screen Ratio 0.8 ratio <1.2 DRVVT Mix Ratio SEE BELOW ratio <1.2 56 Thrombin Time (Bovine) SEE BELOW s 16-25 57 Reptilase Time SEE BELOW s 16-22 58 Interpretation SEE BELOW () 59 Laboratory test 01/25/2010 [facility] Anti Thrombin 89 % 80- 130 [address] [place] [address] [phone] Activated 01/25/2010 [facility] Act Protein C 2.0 Abnormal >or =2.3 Protein C [address] [place] [place] [address] Ratio [phone] Act Protein C Resist Interp . () 61 Factor II (Prothrombin) 01/25/2010 [place] [address] Mutation . () [address] [place] [address] [phone] Prothrombin 37179 Mutation Negative [place] 63 [place] [address] Mutation Interp . () 64 Reviewed By Melissa Webb MD () 65 1 FASTING in 2 m Copy Result to: TREY WONG ([id number]) 2 Because ethnic data is not always readily available, this report includes an eGFR for both -Americans and non- Americans. The National Kidney Disease Education Program (NKDEP) does not endorse the use of the MDRD equation for patients that are not between the ages of 18 and 70, are , have extremes of body size, muscle mass, or nutritional status, or are non- or non-. According to the National Kidney Foundation, irrespective of diagnosis, the stage of the disease is based on the level of kidney function: Stage Description GFR(mL/min/1.73 m(2)) 1 Kidney damage with normal or decreased GFR 90 2 Kidney damage with mild decrease in GFR 60-89 3 Moderate decrease in GFR 30-59 4 Severe decrease in GFR 15-29 5 Kidney failure <15 (or dialysis) 3 Desirable: <150 Borderline High: 150-199 High: 200-499 Very High: >500 4 Desirable: <200 Borderline High: 200-239 High: >239 5 Low: <40 Desirable: 40-60 High: >60 6 Desirable: <100 Near Optimal: 100-129 Borderline High: 130-159 High: 160-189 Very High: >189 7 FASTING in 2 m Copy Result to: TREY WONG ([id number]) 8 FASTING in 2 m Copy Result to: TREY WONG ([id number]) 9 FASTING in 1 m Copy Result to: TREY WONG ([id number]) 10 FASTING in 1 m Copy Result to: TREY WONG ([id number]) 11 Desirable: <150 Borderline High: 150-199 High: 200-499 Very High: >500 12 Desirable: <200 Borderline High: 200-239 High: >239 13 Low: <40 Desirable: 40-60 High: >60 14 Desirable: <100 Near Optimal: 100-129 Borderline High: 130-159 High: 160-189 Very High: >189 15 Because ethnic data is not always readily available, this report includes an eGFR for both -Americans and non- Americans. The National Kidney Disease Education Program (NKDEP) does not endorse the use of the MDRD equation for patients that are not between the ages of 18 and 70, are , have extremes of body size, muscle mass, or nutritional status, or are non- or non-. According to the National Kidney Foundation, irrespective of diagnosis, the stage of the disease is based on the level of kidney function: Stage Description GFR(mL/min/1.73 m(2)) 1 Kidney damage with normal or decreased GFR 90 2 Kidney damage with mild decrease in GFR 60-89 3 Moderate decrease in GFR 30-59 4 Severe decrease in GFR 15-29 5 Kidney failure <15 (or dialysis) 16 Because ethnic data is not always readily available, this report includes an eGFR for both -Americans and non- Americans. The National Kidney Disease Education Program (NKDEP) does not endorse the use of the MDRD equation for patients that are not between the ages of 18 and 70, are , have extremes of body size, muscle mass, or nutritional status, or are non- or non-. According to the National Kidney Foundation, irrespective of diagnosis, the stage of the disease is based on the level of kidney function: Stage Description GFR(mL/min/1.73 m(2)) 1 Kidney damage with normal or decreased GFR 90 2 Kidney damage with mild decrease in GFR 60-89 3 Moderate decrease in GFR 30-59 4 Severe decrease in GFR 15-29 5 Kidney failure <15 (or dialysis) 17 Desirable: <150 Borderline High: 150-199 High: 200-499 Very High: >500 18 Desirable: <200 Borderline High: 200-239 High: >239 19 Low: <40 Desirable: 40-60 High: >60 20 Desirable: <100 Near Optimal: 100-129 Borderline High: 130-159 High: 160-189 Very High: >189 21 Because ethnic data is not always readily available, this report includes an eGFR for both -Americans and non- Americans. The National Kidney Disease Education Program (NKDEP) does not endorse the use of the MDRD equation for patients that are not between the ages of 18 and 70, are , have extremes of body size, muscle mass, or nutritional status, or are non- or non-. According to the National Kidney Foundation, irrespective of diagnosis, the stage of the disease is based on the level of kidney function: Stage Description GFR(mL/min/1.73 m(2)) 1 Kidney damage with normal or decreased GFR 90 2 Kidney damage with mild decrease in GFR 60-89 3 Moderate decrease in GFR 30-59 4 Severe decrease in GFR 15-29 5 Kidney failure <15 (or dialysis) 22 Because ethnic data is not always readily available, this report includes an eGFR for both -Americans and non- Americans. The National Kidney Disease Education Program (NKDEP) does not endorse the use of the MDRD equation for patients that are not between the ages of 18 and 70, are , have extremes of body size, muscle mass, or nutritional status, or are non- or non-. According to the National Kidney Foundation, irrespective of diagnosis, the stage of the disease is based on the level of kidney function: Stage Description GFR(mL/min/1.73 m(2)) 1 Kidney damage with normal or decreased GFR 90 2 Kidney damage with mild decrease in GFR 60-89 3 Moderate decrease in GFR 30-59 4 Severe decrease in GFR 15-29 5 Kidney failure <15 (or dialysis) 23 Because ethnic data is not always readily available, this report includes an eGFR for both -Americans and non- Americans. The National Kidney Disease Education Program (NKDEP) does not endorse the use of the MDRD equation for patients that are not between the ages of 18 and 70, are , have extremes of body size, muscle mass, or nutritional status, or are non- or non-. According to the National Kidney Foundation, irrespective of diagnosis, the stage of the disease is based on the level of kidney function: Stage Description GFR(mL/min/1.73 m(2)) 1 Kidney damage with normal or decreased GFR 90 2 Kidney damage with mild decrease in GFR 60-89 3 Moderate decrease in GFR 30-59 4 Severe decrease in GFR 15-29 5 Kidney failure <15 (or dialysis) 24 Because ethnic data is not always readily available, this report includes an eGFR for both -Americans and non- Americans. The National Kidney Disease Education Program (NKDEP) does not endorse the use of the MDRD equation for patients that are not between the ages of 18 and 70, are , have extremes of body size, muscle mass, or nutritional status, or are non- or non-. According to the National Kidney Foundation, irrespective of diagnosis, the stage of the disease is based on the level of kidney function: Stage Description GFR(mL/min/1.73 m(2)) 1 Kidney damage with normal or decreased GFR 90 2 Kidney damage with mild decrease in GFR 60-89 3 Moderate decrease in GFR 30-59 4 Severe decrease in GFR 15-29 5 Kidney failure <15 (or dialysis) 25 CHOLESTEROL INTERPRETATION: Desirable: Less than 200 MG/DL Borderline-High Risk: 200-239 MG/DL High-Risk: 240 MG/DL and over 26 HDL INTERPRETATION: Undesirable: High Risk: Less than 40 MG/DL Desirable: Low Risk: Greater than 60 MG/DL 27 LDL INTERPRETATION: Low Risk Optimal Level: LDL Less than 100 MG/DL Near or Above Optimal: LDL 100-129 MG/DL Borderline High Risk: LDL 130-159 MG/DL High Risk: LDL 160-189 MG/DL Very High Risk: LDL Greater than 189 MG/DL 28 Anion gap measurement may be of limited value in the presence of any alkalosis, especially in a combined acid base disorder. . 29 A metabolite of Naproxen, O-desmethylnaproxen, has been shown to interfere with the Jendrassik-Anna method for measuring total bilirubin. Samples from patients who have taken Naproxen have shown spurious elevation in total bilirubin levels. 30 Because ethnic data is not always readily available, this report includes an eGFR for both -Americans and non- Americans. The National Kidney Disease Education Program (NKDEP) does not endorse the use of the MDRD equation for patients that are not between the ages of 18 and 70, are , have extremes of body size, muscle mass, or nutritional status, or are non- or non-. According to the National Kidney Foundation, irrespective of diagnosis, the stage of the disease is based on the level of kidney function: Stage Description GFR(mL/min/1.73 m(2)) 1 Kidney damage with normal or decreased GFR 90 2 Kidney damage with mild decrease in GFR 60-89 3 Moderate decrease in GFR 30-59 4 Severe decrease in GFR 15-29 5 Kidney failure <15 (or dialysis) 31 FASTING 32 CHOLESTEROL INTERPRETATION: Desirable: Less than 200 MG/DL Borderline-High Risk: 200-239 MG/DL High-Risk: 240 MG/DL and over 33 HDL INTERPRETATION: Undesirable: High Risk: Less than 40 MG/DL Desirable: Low Risk: Greater than 60 MG/DL 34 LDL INTERPRETATION: Low Risk Optimal Level: LDL Less than 100 MG/DL Near or Above Optimal: LDL 100-129 MG/DL Borderline High Risk: LDL 130-159 MG/DL High Risk: LDL 160-189 MG/DL Very High Risk: LDL Greater than 189 MG/DL 35 Anion gap measurement may be of limited value in the presence of any alkalosis, especially in a combined acid base disorder. . 36 A metabolite of Naproxen, O-desmethylnaproxen, has been shown to interfere with the Jendrassik-Blackwell method for measuring total bilirubin. Samples from patients who have taken Naproxen have shown spurious elevation in total bilirubin levels. 37 Because ethnic data is not always readily available, this report includes an eGFR for both -Americans and non- Americans. The National Kidney Disease Education Program (NKDEP) does not endorse the use of the MDRD equation for patients that are not between the ages of 18 and 70, are , have extremes of body size, muscle mass, or nutritional status, or are non- or non-. According to the National Kidney Foundation, irrespective of diagnosis, the stage of the disease is based on the level of kidney function: Stage Description GFR(mL/min/1.73 m(2)) 1 Kidney damage with normal or decreased GFR 90 2 Kidney damage with mild decrease in GFR 60-89 3 Moderate decrease in GFR 30-59 4 Severe decrease in GFR 15-29 5 Kidney failure <15 (or dialysis) 38 NO MRSA ISOLATED 39 Recommended INR for Patients on Oral Anticoagulants Prophylaxis 2.0 - 3.0 Treatment of thrombosis 2.0 - 3.0 Prevention of embolism 2.0 - 3.0 Prevention of embolism from prosthetic heart valves 2.5 - 3.5 40 DIAGNOSIS,TREATMENT,AND THERAPY MUST BE BASED ON THE INR VALUE ALONE. 41 Anion gap measurement may be of limited value in the presence of any alkalosis, especially in a combined acid base disorder. . 42 Because ethnic data is not always readily available, this report includes an eGFR for both -Americans and non- Americans. The National Kidney Disease Education Program (NKDEP) does not endorse the use of the MDRD equation for patients that are not between the ages of 18 and 70, are , have extremes of body size, muscle mass, or nutritional status, or are non- or non-. According to the National Kidney Foundation, irrespective of diagnosis, the stage of the disease is based on the level of kidney function: Stage Description GFR(mL/min/1.73 m(2)) 1 Kidney damage with normal or decreased GFR 90 2 Kidney damage with mild decrease in GFR 60-89 3 Moderate decrease in GFR 30-59 4 Severe decrease in GFR 15-29 5 Kidney failure <15 (or dialysis) 43 Test Performed by: [facility] Dpt of Lab Med and Pathology [address] [place] [address] Machine Pan Greaser: Marek Ramirez III, M.D. 44 Heparin levels greater than 1 U/ml, inhibitors of the APTT test system (especially lupus anticoagulant), or inhibitors of bovine factor V (such antibodies that may arise in patients treated with certain bovine topical thrombin preparations) may produce a falsely normal Protein S Activity result. Suggest clinical correlation and if indicated consider repeat assay of Protein S Activity and Antigen in the absence of anticoagulation therapy. Test Performed by: [facility] Lab Med [facility] Pathology [address] [place] [address] Machine Pan Greaser: Marek R. Cockerill, III, M.D. 45 Interpretation: Negative (<10.0 GPL) Test Performed by: [facility] Med [facility] Pathology [address] [place] [address] Machine Pan Greaser: Marek Ramirez III, M.D. 46 Interpretation: Negative (<10.0 MPL) Test Performed by: [facility] Med [facility] [address] [place] [address] Machine Pan Greaser: Marek Ramirez III, M.D. 47 Interpretation: Negative (<10.0 APL) Test Performed by: [facility] Med [facility] Path[facility] [address] [place] [address] Machine Pan Greaser: Marek Ramirez III, M.D. 48 -- REFERENCE VALUE -- <=13 (Fasting) Test Performed by: [facility] Med [facility] Pathology [address] [place] [address] Machine Pan Greaser: Marek Ramirez III, M.D. 49 This test is a direct mutation analysis of leukocyte genomic DNA by the Invader Assay system ([employer], [employer] [place], [employer], [place]). 50 Analyte Specific Reagent This test was developed and its performance characteristics determined by [facility] Medicine [facility] Pathology, [facility]. This test has not been cleared or approved by the U.S. Food and Drug Administration. 51 This individual DOES have the factor V Leiden (R506Q) mutation on ONE allele, (heterozygous carrier). The factor V Leiden (R506Q) mutation is a risk factor for venous thromboembolism, recurrent miscarriage, complications of , and possible arterial thrombosis. The individual may have other genetic and environmental risk factors for thrombosis. Consider additional testing for hemostatic disorders associated with increased thrombosis risk, if indicated. Consider genetic consultation and counseling of potentially affected family members regarding laboratory testing. 52 Test Performed by: [facility] Med [facility] Path[facility] [address] [place] [address] Machine Pan Greaser: Marek Ramirez III, M.D. 53 Reflexed test not required 54 Reflexed test not required 55 Reflexed test not required 56 Reflexed test not required 57 Reflexed test not required 58 Reflexed test not required 59 No evidence of a lupus-like anticoagulant based on normal results of Prothrombin Time (PT), Activated Partial Thromboplastin Time (APTT) and Dilute Russells Viper Venom Time (DRVVT). Interpretation not reviewed by physician. Test Performed by: [facility] [address] [place] [address] Machine Pan Greaser: Marek Ramirez III, M.D. 60 Test Performed by: [facility] [address] [place] [address] Machine Pan Greaser: Marek Ramirez III, M.D. 61 Abnormally low Activated Protein C-Resistance (APCRV) assay ratio, suggesting the patient is a carrier for the Factor V Leiden mutation. If clinically indicated, consider DNA-based testing for the factor V "Leiden" mutation (R506Q). Test Performed by: [facility] Med [facility] Path[facility] [address] [place] [address] Machine Pan Greaser: Marek Ramirez III, M.D. 62 This test is a direct mutation analysis of leukocyte genomic DNA by the Invader Assay system ([employer], [employer] [place], [place], [place]). 63 Analyte Specific Reagent This test was developed and its performance characteristics determined by [facility], [facility]. This test has not been cleared or approved by the U.S. Food and Drug Administration. 64 This individual DOES NOT have the Prothrombin [id number] mutation. Although the Prothrombin [id number] mutation is absent, the individual may have other genetic and environmental risk factors for thrombosis. Consider additional testing for hemostatic disorders associated with increased thrombosis risk, if indicated. Consider genetic consultation and counseling of potentially affected family members regarding laboratory testing. 65 Test Performed by: [facility] Med [facility] Path[facility] [address] [place] [address] Machine Pan Greaser: Marek Ramirez III, M.D. Procedures Date Code Description Status 07/01/2018 78212 EKG Tracing & Interpretation Completed 04/14/2018 55678 ECHO Transthorasic Realtime 2D W Doppler & Color Flow Hosp Completed 03/19/2018 89037 Treadmill Interp/Report Only Completed 03/19/2018 14913 Stress Test Supervsn W/Out I/R Completed 12/20/2017 48629 Holter Monitor Review (24 hr)dr review & interp only Completed 12/16/2017 39393 ECG Monitor/Recording W/Visual Superimposition Scanning Completed 12/16/2017 67707 ECG Monitor/Recording W/Visual Superimposition Scanning Completed 11/16/2017 94863 EKG Tracing & Interpretation Completed 04/28/2017 15633 EKG Tracing & Interpretation Completed 02/19/2017 46546 EKG Tracing & Interpretation Completed 01/06/2017 29456 EEG Recording Awake & Drowsy Completed 12/22/2016 39320 Holter Monitor Review (24 hr)dr review & interp only Completed 12/16/2016 68556 ECG Monitor/Recording W/Visual Superimposition Scanning Completed 12/16/2016 16337 ECG Monitor/Recording W/Visual Superimposition Scanning Completed 12/08/2016 98575 EKG Tracing & Interpretation Completed 11/17/2016 09585 EKG Tracing & Interpretation Completed 10/08/2016 78641 Inject Tendon Sheath Or Ligament Aponeurosis Eg Plantar Completed Fascia 09/10/2016 00923 Inject Tendon Sheath Or Ligament Aponeurosis Eg Plantar Completed Fascia 05/14/2016 81492 ECHO Stress Test Incl Perf Contiuous ekg Monitoring W/Phys Completed Superv 05/13/2016 39448 EKG Tracing & Interpretation Completed 09/05/2014 48742 ECHO Transthoracic, Real-Time 2D With Doppler And Color Completed Flow 08/22/2014 06097 EKG, Interpretation Only Completed 12/01/2013 59068 Holter Monitor Review (24 hr)dr review & interp only Completed 11/30/2013 62017 Color Flow Doppler/Interp & Reprt Completed 11/30/2013 09693 Pulse Wave/Continuous-Interp.RPT Completed 11/30/2013 38801 Echocardiography, Transesophageal, Real Time W/Image 2D Completed W/W/O M-M 11/29/2013 00780 ECHO Transthorasic Realtime 2D W Doppler & Color Flow Hosp Completed 05/02/2013 06789 EKG Tracing & Interpretation Completed 12/23/2012 57462 ECHO Transthoracic, Real-Time 2D With Doppler And Color Completed Flow 06/15/2012 25831 Treadmill Interp/Report Only Completed 06/15/2012 34395 Stress Test Supervsn W/Out I/R Completed 05/06/2012 02049 EKG Tracing & Interpretation Completed 01/21/2012 63974 EKG Tracing & Interpretation Completed 03/26/2011 80227 ECHO Stress Test Incl Perf Contiuous ekg Monitoring W/Phys Completed Superv 11/29/2010 67352 EKG Tracing & Interpretation Completed 08/02/2010 47153 EKG, Interpretation Only Completed 08/01/2010 51363 IV Rx Trancath Therapy(Nitro/Jaelyn) Completed 08/01/2010 59636 Ptca W/Intracor Stent Completed 08/01/2010 46403 EKG, Interpretation Only Completed 08/01/2010 99358 Left Heart Cath. Incl S/I Coronaries, Angio S/I V Gram If Completed Done 07/31/2010 33126 ECHO Transthoracic, Real-Time 2D With Doppler And Color Completed Flow 07/31/2010 10885 EKG Tracing & Interpretation Completed 07/22/2010 23882 EKG, Interpretation Only Completed 09/30/2006 01995 Color Doppler Completed 09/30/2006 43659 Color Doppler Completed 09/30/2006 66085 Pulse Doppler & Continuous Wave Completed 09/30/2006 92949 Pulse Doppler & Continuous Wave Completed 09/30/2006 15197 Pulse Doppler & Continuous Wave Completed 09/30/2006 61629 Echocardiogram Completed 09/30/2006 78184 Echocardiogram Completed 11/24/2002 09353 ECHO/Stress Completed 11/24/2002 35345 Stress Test Completed 11/23/2002 59261 EKG Tracing & Interpretation Completed Encounters Type Date Location Provider Dx Diagnosis Office Visit 04/14/2018 [facility] Esvin Fernández MD I63.9 Cerebral 7:00a infarction, unspecified D68.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 Hospitalists D68.51 Activated protein C resistance H53.2 Diplopia I10 Essential (primary) hypertension G47.33 Obstructive sleep apnea (adult) (pediatric) Office Visit 02/18/2018 1:00p Pulmonology And Liane G47.33 Obstructive sleep Sleep Services Of MD Slime apnea (adult) Him Analyst (pediatric) J98.4 Other disorders of lung E66.09 Other obesity due to excess calories Z68.38 Body mass index (BMI) 38.0-38.9, adult Office Visit 02/15/2018 3:30p [place] Stephie S. I49.1 Atrial premature Cardiology Foster, N.P. 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 I63.9 Cerebral Foster, N.P. 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 disease of resighini coronary artery w/o ang pctrs R00.1 Bradycardia, unspecified I95.9 Hypotension, unspecified E78.00 Pure hypercholesterolemia, unspecified Office Visit 09/10/2016 3:30p Orthopedic Pramod M65.331 Trigger finger, Services Of MD Wilberto right middle C.M.A. 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 Cerebral Hospitalists Transient Unspec 433.10 Occlusion & Stenosis Carotid Artery W/O Cerebral Infarction 434.91 Occlusion Cerebral Artery Unspec W/ Cerebral Infarc Office Visit 08/22/2014 Neurohospitalist Amaya 435.9 TIA Ischemia 1:30p Clinic Jennifer Scott Cerebral Transient Unspec Office Visit 06/05/2014 Pulmonology And Sleep Liane 327.23 Obstructive 10:30a Services Of Yanely Palencia MD Sleep Apnea Adult & Pediatric 780.52 Insomnia Unspecified 278.00 Obesity Unspec Office Visit 12/01/2013 2:17p [facility] Surekha 435.9 TIA Ischemia Assoc,sushila Fregoso D.O. Cerebral Hospitalists Transient Unspec 272.4 Hyperlipidemia Other Unspec 289.81 primary hypercoagulable state 401.9 Hypertension Unspec Office Visit 11/30/2013 2:15p [facility] Surekha 435.9 TIA Ischemia Assoc,sushila Fregoso D.O. Cerebral Hospitalists Transient Unspec 272.4 Hyperlipidemia Other Unspec 289.81 primary hypercoagulable state 401.9 Hypertension Unspec Office Visit 11/29/2013 9:42a [place] [facility] Crow Garcia 435.8 Ischemia Services Of Yanely Joseph M.D. Cerebral Transient Other Spec 433.10 Occlusion & Stenosis Carotid Artery W/O Cerebral Infarction 401.9 Hypertension Unspec Office Visit 11/29/2013 2:14p [facility] Surekha 435.9 TIA Ischemia Assoc,sushila Fregoso D.O. Cerebral Hospitalists Transient Unspec 272.4 Hyperlipidemia Other Unspec 401.9 Hypertension Unspec 289.81 primary hypercoagulable state Office Visit 11/28/2013 9:40a [place] Dmitriy Garcia 435.8 Ischemia Services Of Yanely Joseph M.D. Cerebral Transient Other Spec 433.10 Occlusion & Stenosis Carotid Artery W/O Cerebral Infarction 401.9 Hypertension Unspec Office Visit 11/28/2013 2:14p [facility] Surekha 435.9 TIA Ischemia Assoc,pc Noman Fregoso Cerebral Hospitalists Transient Unspec 272.4 Hyperlipidemia Other Unspec 401.9 Hypertension Unspec Office Visit 05/02/2013 9:40a [facility] Chris Waddell 401.1 Hypertension Jennifer Das Benign 414.01 Coronary Atherosclerosis [place] 278.00 Obesity Unspec 272.0 Hypercholesterolemia Pure Office Visit 05/06/2012 [place] Chris Waddell 414.01 Coronary 9:00a Cardiology Jennifer Das Atherosclerosis [place] 278.01 Obesity Morbid 401.1 Hypertension Benign 786.51 Pain Precordial Office Visit 02/12/2012 [place] Nurse Visit cc 401.9 Hypertension Unspec 8:15a Cardiology Office Visit 01/21/2012 [place] Chris Waddell 414.01 Coronary 9:20a Cardiology Jennifer Das Atherosclerosis [place] 278.01 Obesity Morbid 401.9 Hypertension Unspec Office Visit 05/01/2011 [place] Amaya 414.01 [facility] [place] 401.1 Hypertension Benign 272.4 Hyperlipidemia Other Unspec Office Visit 04/10/2011 [place] Chris Waddell 414.01 Coronary 10:20a Cardiology Jennifer Das Atherosclerosis [place] 278.01 Obesity Morbid 401.1 Hypertension Benign Office Visit 03/26/2011 [place] Chris Waddell 414.01 Coronary 3:30p Cardiology Jennifer Das Atherosclerosis [place] 401.1 Hypertension Benign 272.4 Hyperlipidemia Other Unspec 278.01 Obesity Morbid Office Visit 11/29/2010 [place] Chris Waddell 414.01 Coronary 10:10a Cardiology Jennifer Das Atherosclerosis [place] 401.1 Hypertension Benign 786.51 Pain Precordial Office Visit 08/15/2010 1:28p [place] Booker 401.1 Hypertension Cardiology Noman Tenorio Benign 414.01 Coronary Atherosclerosis [place] 272.4 Hyperlipidemia Other Unspec 435.9 TIA Ischemia Cerebral Transient Unspec Office Visit 08/02/2010 2:27p [place] Booker 401.1 Hypertension Cardiology Noman Tenorio Benign 786.50 Pain Chest Unspec 411.1 Coronary Syndrome Intermediate 272.4 Hyperlipidemia Other Unspec 414.01 Coronary Atherosclerosis [place] 435.9 TIA Ischemia Cerebral Transient Unspec Office Visit 08/01/2010 9:30a Enedina Booker 401.1 Hypertension Cardiology Noman Tenorio Benign 786.50 Pain Chest Unspec 411.1 Coronary Syndrome Intermediate 272.4 Hyperlipidemia Other Unspec 414.01 Coronary Atherosclerosis [place] 435.9 TIA Ischemia Cerebral Transient Unspec Office Visit 07/31/2010 1:40p [facility] Chris Waddell 786.51 Pain Precordial Jennifer Das 272.4 Hyperlipidemia Other Unspec V15.82 History Personal Tobacco Use 435.9 TIA Ischemia Cerebral Transient Unspec 401.1 Hypertension Benign Office Visit 11/23/2002 2:20p [facility] Chris Waddell 786.50 Pain Chest Jennifer Das Unspec V15.82 History Personal Tobacco Use Plan of Treatment 07/01/2018 - Chris Das M.D.I63.9 Cerebral infarction, [id number] Essential (primary) [id number] Hyperlipidemia, unspecifiedNew Labs:CBC Auto Diff, Ordered: 07/01/18Lipid Panel - JFM, Ordered: 07/01/18Magnesium, Ordered: 07/01/18Follow up:ov 8 mZ79.01 group home (current) use of hmwkzwygzkxwxhB30.10 Coronary pywjbixwpiwvtubS27.42 Hypomagnesemia
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
[2018-07-05 20:23] LABS: ABS Basophils 0.1 10^3/ul (0-0.2); ABS Eosinophils 0.2 10^3/ul (0-0.6); ABS Lymphocytes 1.1 10^3/ul (1.0-4.8); ABS Monocytes 0.5 10^3/ul (0-0.8); ABS Neutrophils 5.2 10^3/ul (1.5-7.7); Eosinophil % 2.6 %; Hematocrit 44 % (42-52); Hemoglobin 14.8 g/dL (14.0-18.0); Lymphocyte % 15.9 %; Mean Corpuscular HGB Conc 34 g/dL (31-36); Mean Corpuscular Hemoglobin 30 pg (27-31); Mean Corpuscular Volume 87 fL (80-94); Mean Platelet Volume 8.1 fL (7.4-10.4); Platelet Count 237 10^3/uL (150-450); Red Blood Count 5.01 10^6 /uL (4.18-5.48); Red Cell Distribution Width 14 % (10.5-15); White Blood Count 7.1 10^3/uL (3.5-10.8)
[2018-07-05 20:32] LABS: Activated Partial Thrombo Time 43.4 seconds (26.0-36.3); INR 2.32 (0.82-1.09)
[2018-07-05 20:39] LABS: Albumin 4.4 g/dL (3.2-5.2); Albumin/Globulin Ratio 1.8 (1-3); BUN/Creatinine Ratio 25.5 (8-20); Calcium 9.6 mg/dL (8.6-10.3); EGFR African American 95.1 (>60); EGFR Non-African American 78.6 (>60); Globulin 2.5 g/dL (2-4); Potassium 3.9 mmol/L (3.5-5.0); Total Bilirubin 0.3 mg/dL (0.2-1.0); Total Protein 6.9 g/dL (6.4-8.9)
[2018-07-05 22:12] VITALS: BP 146/75
== END 2018-07-05 22:10 | disposition home or self-care (01) ==
LOC: ED 19:26
DX: R53.1 Weakness (principal); R26.81 Unsteadiness on feet; W18.30XA Fall on same level, unspecified, initial encounter; R00.1 Bradycardia, unspecified; Z86.73 Personal history of transient ischemic attack (TIA), and cerebral infarction without residual deficits; H53.2 Diplopia; I10 Essential (primary) hypertension; E78.00 Pure hypercholesterolemia, unspecified; Z79.01 Long term (current) use of anticoagulants; Z79.82 Long term (current) use of aspirin; Z95.5 Presence of coronary angioplasty implant and graft; Z88.8 Allergy status to other drugs, medicaments and biological substances; Z87.891 Personal history of nicotine dependence
CPT/HCPCS: 36415; 70450; 80053; 83735; 85025; 85610; 85730; 93005; 99283

== ENCOUNTER 2019-03-01 12:06 | Emergency (ER) | payer OTHER ==
[2019-03-01 12:28] LABS: ABS Eosinophils 0.1 10^3/ul (0-0.6); ABS Lymphocytes 0.8 10^3/ul (1.0-4.8); ABS Monocytes 0.4 10^3/ul (0-0.8); ABS Neutrophils 4.6 10^3/ul (1.5-7.7); Eosinophil % 2.3 %; Hematocrit 43 % (42-52); Hemoglobin 14.5 g/dL (14.0-18.0); Lymphocyte % 12.8 %; Mean Corpuscular HGB Conc 34 g/dL (31-36); Mean Corpuscular Hemoglobin 29 pg (27-31); Mean Corpuscular Volume 85 fL (80-94); Mean Platelet Volume 7.3 fL (7.4-10.4); Platelet Count 239 10^3/uL (150-450); Red Blood Count 5.06 10^6 /uL (4.18-5.48); Red Cell Distribution Width 14 % (10-15); White Blood Count 5.9 10^3/uL (3.5-10.8)
--- NOTE | 2019-03-01 12:47 | ED ---
Complex/Multi-Sys Presentation - HPI Summary HPI Summary: Patient is a 58 y/o M presenting to the ED for a chief complaint of nausea, vomiting, diaphoresis, and dizziness. Patient states that on 01/29/20 and , he had an episode of dizziness and later had nausea, vomiting, and diaphoresis. He initially believed he had a "stomach bug" so he was not seen by any providers. On 03/01/19, patient had another episode with the same symptoms. The dizziness lasts for 7-8 minutes before resolving. He describes the dizziness as a room spinning sensation. Patient denies tinnitus, blurry vision, changes in vision, numbness, or paresthesia. Any aggravating factors are denied. Unsure if position makes worse but notes gets worse when looking Left ( where he has visual deficit from prior stroke). Better w laying down/rest. No CP. PMHx is significant for CVA and leiden factor 5. Patient takes Warfarin. - History Of Current Complaint Chief Complaint: EDNauseaVomitDiarrh Time Seen by Provider: 03/01/19 12:38 Hx Obtained From: Patient Onset/Duration: Sudden Onset, Still Present Timing: Intermittent, Lasting:, Minutes - 7-8 minutes Severity Currently: Moderate Severity Initially: Moderate Associated Signs And Symptoms: Positive: Dizziness, Nausea, Vomiting, Diaphoresis. Negative: Other - Negative numbness, paresthesia, tinnitus, blurred vision, or changes in vision. - Allergies/Home Medications Allergies/Adverse Reactions: Allergies Allergy/AdvReac Type Severity Reaction Status Date / Time atorvastatin Allergy Muscle Ache Verified 07/05/18 19:34 Home Medications: Home Medications Aspirin EC TAB* [Ecotrin EC Low Dose 81 MG*] 81 mg PO DAILY 03/01/19 [History Confirmed 03/01/19] Magnesium Oxide [Magnesium] 250 mg PO DAILY 03/01/19 [History Confirmed 03/01/19 ] Warfarin TAB(*) [Coumadin TAB(*)] 7.5 mg PO DAILY 03/01/19 [History Confirmed ] PMH/Surg Hx/FS Hx/Imm Hx Previously Healthy: Yes Endocrine/Hematology History: Reports: Hx Anticoagulant Therapy - Warfarin, Other Endocrine/Hematological Disorders - Per pt "Leiden Factor V" Denies: Hx Diabetes, Hx Thyroid Disease Cardiovascular History: Reports: Hx Coronary Artery Disease, Hx Hypercholesterolemia, Hx Hypertension Denies: Hx Angina, Hx Congenital Heart Disease, Hx Congestive Heart Failure, Hx Deep Vein Thrombosis, Hx Embolism, Hx Myocardial Infarction, Hx Pacemaker/ICD , Hx Syncope Respiratory History: Reports: Hx Sleep Apnea Denies: Hx Asthma, Hx Chronic Obstructive Pulmonary Disease (COPD) GI History: Denies: Hx Diverticulosis, Hx Gastrointestinal Bleed, Hx Irritable Bowel, Hx Obstructive Bowel History: Denies: Hx Benign Prostatic Hyperplasia, Hx Chronic Renal Failure, Hx Kidney Stones, Hx Renal Disease Musculoskeletal History: Denies: Hx Back Problems, Hx Gout Sensory History: Reports: Hx Contacts or Glasses Denies: Hx Cataracts, Hx Eye Injury, Hx Eye Prosthesis, Hx Legally Blind, Hx Vision Problem, Hx Deafness, Hx Hearing Aid, Hx Hearing Problem Opthamlomology History: Reports: Hx Contacts or Glasses Denies: Hx Cataracts, Hx Eye Injury, Hx Eye Prosthesis, Hx Legally Blind, Hx Vision Problem EENT History: Denies: Hx Deafness Neurological History: Reports: Hx CVA, Hx Transient Ischemic Attacks (TIA), Other Neuro Impairments/Disorders - Traumatic head injury 1989. carotid artery occlusion Denies: Hx Dementia, Hx Migraine, Hx Seizures, Hx Spinal Cord Injury Psychiatric History: Reports: Hx Anxiety Denies: Hx Panic Disorder - Surgical History Surgical History: Yes Surgery Procedure, Year, and Place: CARDIAC STENTS - Immunization History Date of Tetanus Vaccine: Up to date Date of Influenza Vaccine: Fall 2012 Infectious Disease History: Yes Infectious Disease History: Denies: Hx Clostridium Difficile, Hx Hepatitis, Hx of Known/Suspected MRSA, Hx Shingles, Hx Tuberculosis, Traveled Outside the [place] in Last 30 Days - Family History Known Family History: Positive: Cardiac Disease - Social History Occupation: Retired Lives: With Family Alcohol Use: None Hx Substance Use: No Substance Use Type: Reports: None Hx Tobacco Use: Yes Smoking Status (MU): Former Smoker Amount Used/How Often: 3ppd Length of Time of Smoking/Using Tobacco: 20 Review of Systems Positive: Skin Diaphoresis Negative: Blurred Vision, Other - Negative changes in vision Negative: Other - Negative tinnitus Positive: Vomiting, Nausea Neurological: Other - Positive dizziness Negative: Paresthesia, Numbness All Other Systems Reviewed And Are Negative: Yes Physical Exam - Summary Physical Exam Summary: Constitutional: Well-developed, Well-nourished, Alert. (-) Distressed Skin: Warm, Dry HENT: Normocephalic; Atraumatic Eyes: Conjunctiva normal Neck: Musculoskeletal ROM normal neck. (-) JVD, (-) Stridor, (-) Nuchal rigidity Cardio: Rhythm regular, rate normal, Heart sounds normal; Intact distal pulses; Radial pulses are 2+ and symmetric. (-) Murmur Pulmonary/Chest wall: Effort normal. (-) Respiratory distress, (-) Wheezes, (-) Rales Abd: Soft, (-) tenderness, (-) Distension, (-) Guarding, (-) Rebound Musculoskeletal: (-) Edema Lymph: (-) Cervical adenopathy Neuro: Alert, Oriented x3, CN 2-12 grossly intact, no nystagmus, slight dysmetria on the left side. SILT. Strength 5/5 BUE/BLE. Ambulates steady Psych: Mood and affect Normal Triage Information Reviewed: Yes Vital Signs On Initial Exam: Initial Vitals Temp Pulse Resp BP Pulse Ox 95.1 F 52 16 143/91 95 03/01/19 12:08 03/01/19 12:08 03/01/19 12:08 03/01/19 12:08 03/01/19 12:08 Vital Signs Reviewed: Yes - [place] Coma Scale Best Eye Response: 4 - Spontaneous Best Motor Response: 6 - Obeys Commands Best Verbal Response: 5 - Oriented Coma Scale Total: 15 Procedures - Sedation Patient Received Moderate/Deep Sedation with Procedure: No Diagnostics - Vital Signs Vital Signs Temp Pulse Resp BP Pulse Ox 03/01/19 12:08 95.1 F 52 16 143/91 95 - Laboratory Lab Results: Lab Results 03/01/19 03/01/19 Range/Units 12:17 12:17 WBC 5.9 (3.5-10.8) 10^3/uL RBC 5.06 (4.18-5.48) 10^6 /uL Hgb 14.5 (14.0-18.0) g/dL Hct 43 (42-52) % MCV 85 (80-94) fL MCH 29 (27-31) pg MCHC 34 (31-36) g/dL RDW 14 (10-15) % Plt Count 239 (150-450) 10^3/uL MPV 7.3 L (7.4-10.4) fL Neut % (Auto) 77.7 % Lymph % (Auto) 12.8 % [place] % (Auto) 6.8 % Eos % (Auto) 2.3 % Baso % (Auto) 0.4 % Absolute Neuts (auto) 4.6 (1.5-7.7) 10^3/ul Absolute Lymphs (auto) 0.8 L (1.0-4.8) 10^3/ul Absolute Monos (auto) 0.4 (0-0.8) 10^3/ul Absolute Eos (auto) 0.1 (0-0.6) 10^3/ul Absolute Basos (auto) 0.0 (0-0.2) 10^3/ul Absolute Nucleated RBC 0.0 10^3/ul Nucleated RBC % 0.0 Sodium Pending Potassium Pending Chloride Pending Carbon Dioxide Pending Anion Gap Pending BUN Pending Creatinine Pending Est GFR ( Amer) Pending Est GFR (Non-Af Amer) Pending BUN/Creatinine Ratio Pending Glucose Pending Calcium Pending Magnesium Pending Total Bilirubin Pending AST Pending ALT Pending Alkaline Phosphatase Pending Troponin I 0.00 (<0.03) ng/mL Total Protein Pending Albumin Pending Globulin Pending Albumin/Globulin Ratio Pending TSH Pending Result Diagrams: 03/01/19 12:17 03/01/19 12:17 Lab Statement: Any lab studies that have been ordered have been reviewed, and results considered in the medical decision making process. - CT Brain CT CT Interpretation Completed By: Radiologist Summary of CT Findings: Brain CT IMPRESSION: NO ACUTE INTRACRANIAL PATHOLOGY. DIFFUSE INVOLUTIONAL CHANGE WITH CHRONIC SMALL VESSEL ISCHEMIC CHANGES. Reviewed by Dr. Swan. - EKG 12:10 Cardiac Rate: Bradycardia - 52 BPM EKG Rhythm: Sinus Bradycardia ST Segment: Normal Ectopy: None Summary of EKG Findings: An EKG at 12:10 reveals sinus bradycardia with 52 BPM, nml axis, nml intervals. No STEMI. No acute changes. ED physician has reviewed and interpreted this EKG. Re-Evaluation - Re-Evaluation First Eval Re-Evaluation Time: 15:26 Change: Improved Comment: At 15:26, patient was able to ambulate w/o difficulty. Given meclizine. Follow up neurology Complex Multi-Symp Course/Dx Course Of Treatment: 58 y/o male w hx prior CVA (facial droop, dysarthria), factor V Leiden p/w intermittent vertigo. - VSS NAD. Vertigo resolved. Neuro exam notable for mild L sided dysmetria which family says is 2/2 L visual field cut from prior stroke. - Dizziness ddx: Vertigo: Most likely BPPV - intermittent, episodic. differential includes Menniere's - no tinnitis, not lasting hours, labyrinthitis - no h/o infectious symptoms, no tinnitus. Differential diagnosis includes: Cardiac causes - will check EKG, troponin. Electrolyte disturbances - will check CMP. Anemia - will check CBC. Posterior stroke/tia - head CT neg, given intermittent symptoms suspect a peripheral cause - Diagnoses Provider Diagnoses: Vertigo, Nausea & vomiting - Physician Notifications Discussed Care Of Patient With: Danny Bass - At 14:35, Dr. Bass states patient can take meclizine for vertigo. Time Discussed With Above Provider: 14:35 Discharge ED - Sign-Out/Discharge Documenting (check all that apply): Patient Departure - Discharge - Discharge Plan Condition: Stable Disposition: HOME Prescriptions: Meclizine TAB* [Antivert 12.5 TAB*] 25 mg PO TID PRN 30 Days #20 tab PRN Reason: Vertigo Patient Education Materials: Benign Paroxysmal Positional Vertigo (ED) Referrals: Trey Wong MD [Primary Care Provider] - Esvin Fernández MD [Medical Doctor] - Additional Instructions: You were seen in the emergency department for vertigo. He likely has BPPV, which is a form of peripheral vertigo. You can take meclizine as needed for vertigo. Your head CT did not show any acute changes. Please follow up with your primary care doctor in next 2-3 days and return to emergency department for headaches, persistent vertigo, confusion, numbness or tingling, weakness worsening or concerning symptoms. It was a pleasure taking care of you today. - Billing Disposition and Condition Condition: STABLE Disposition: Home - Attestation Statements Document Initiated by Scribe: Yes Documenting Scribe: Amaya Fournier Provider For Whom Scribe is Documenting (Include Credential): Trang Swan MD Scribe Attestation: I, Amaya Fournier, scribed for Trang Swan MD on 03/01/19 at 1722. Scribe Documentation Reviewed: Yes Provider Attestation: The documentation as recorded by the scribe, Amaya Fournier accurately reflects the service I personally performed and the decisions made by me, Trang Swan MD Status of Scribe Document: Viewed
[2019-03-01 12:54] LABS: Albumin 4.4 g/dL (3.2-5.2); Albumin/Globulin Ratio 1.8 (1-3); BUN/Creatinine Ratio 24.1 (8-20); Calcium 9.3 mg/dL (8.6-10.3); EGFR African American 121.9 (>60); EGFR Non-African American 100.7 (>60); Globulin 2.4 g/dL (2-4); Magnesium 1.8 mg/dL (1.9-2.7); Potassium 4.8 mmol/L (3.5-5.0); Total Bilirubin 0.4 mg/dL (0.2-1.0); Total Protein 6.8 g/dL (6.4-8.9)
[2019-03-01 13:45] LABS: TSH (Thyroid Stimulating Horm) 2.45 mcIU/mL (0.34-5.60)
[2019-03-01 13:51] LABS: INR 2.52 (0.82-1.09)
[2019-03-01] MEDS ORDERED: Meclizine TAB* 12.5 MG PO ONE (14:31)
[2019-03-01] MEDS ORDERED: Magnesium Oxide TAB* 400 MG PO ONE (14:31)
[2019-03-01 16:09] VITALS: BP 132/91
== END 2019-03-01 16:09 | disposition home or self-care (01) ==
LOC: ED 12:06
DX: R11.2 Nausea with vomiting, unspecified (principal); R42 Dizziness and giddiness; I25.10 Atherosclerotic heart disease of native coronary artery without angina pectoris; E78.00 Pure hypercholesterolemia, unspecified; I10 Essential (primary) hypertension; F41.9 Anxiety disorder, unspecified; D68.51 Activated protein C resistance; I69.392 Facial weakness following cerebral infarction; I69.322 Dysarthria following cerebral infarction; Z87.891 Personal history of nicotine dependence; Z79.01 Long term (current) use of anticoagulants; Z79.82 Long term (current) use of aspirin; Z79.899 Other long term (current) drug therapy; Z88.8 Allergy status to other drugs, medicaments and biological substances; Z95.5 Presence of coronary angioplasty implant and graft
CPT/HCPCS: 36415; 70450; 80053; 83605; 83735; 84443; 84484; 85025; 85610; 93005; 99284; A9270-GY

== ENCOUNTER 2023-10-13 07:56 | Observation (INO) ==
[~2023-10-13 07:56] MED LIST changes: -Iohexol 350* (CONTRAST) 500 ML MDV IV ONE; -NS 0.9% 1000 ML* 1,000 ML IV ONE; +SODIUM CHLORIDE 0.9% IVPB SCH; +[UNRECOGNIZED DRUG - OTHER] IVPB SCH
[2023-10-13 08:32] LABS: ABS Lymphocytes 0.6 10^3/uL (1.0-4.8); ABS Monocytes 0.2 10^3/uL (0.0-1.1); Eosinophil % 3.1 %; Hematocrit 39.6 % (38-53); Hemoglobin 12.9 gm/dL (13.2-16.3); Lymphocyte % 45.1 %; Mean Corpuscular Hemoglobin 28.1 pg (27-33); Mean Corpuscular Hgb Conc 32.6 g/dL (31-36); Mean Corpuscular Volume 86.1 fL (80-97); Mean Platelet Volume 7.6 fL (7.5-11.2); Platelet Count 106 10^3/uL (150-450); Red Blood Count 4.6 10^6/uL (4.06-5.63); Red Cell Distribution Width 13.8 % (12-17); White Blood Count 1.4 10^3/uL (3.6-10.2)
[2023-10-13 08:43] LABS: ABS Neutrophils 0.5 10^3/uL (1.5-7.6)
[2023-10-13 08:50] LABS: Albumin 3.3 g/dL (3.2-5.2); Albumin/Globulin Ratio 1.2 (1-3); Calcium 9.4 mg/dL (8.6-10.3); Creatinine, Serum 0.6 mg/dL (0.67-1.17); Globulin 2.7 g/dL (2-4); Potassium 3.6 mmol/L (3.5-5.0); Total Bilirubin 0.5 mg/dL (0.2-1.0); eGFR CKD-EPI 108.5 (>60)
[2023-10-13] MEDS ORDERED: Dexamethasone IV 4 MG/ML 5 ML VIAL (20 MG) IVPB ONE (09:19)
[2023-10-13] MEDS ORDERED: diphenhydrAMINE 50 MG/ML INJ SYRINGE *CHOA ONE (09:19)
[2023-10-13 10:46] LABS: Phosphorus 3.4 mg/dL (2.5-5.0)
[2023-10-13 10:52] LABS: Uric Acid 6.1 mg/dL (4.4-7.6)
[2023-10-13] MEDS ORDERED: Ondansetron 4 mg VIAL 2 MG/ML 2 ml VIAL IV PRN (11:23)
[2023-10-13] MEDS ORDERED: Dexamethasone IV 4 MG/ML VIAL 1 ml VIAL IV SLOW PU PRN (11:31)
[2023-10-13] MEDS ORDERED: Tocilizumab 200 MG/10 ML 10 ml VIAL IVPB PRN (11:33)
[2023-10-13] MEDS ORDERED: Butalb/Acetamin/Caff TAB 325-50-40MG PO PRN (21:57)
[2023-10-14 05:42] LABS: ABS Lymphocytes 0.3 10^3/uL (1.0-4.8); ABS Monocytes 0.5 10^3/uL (0.0-1.1); ABS Neutrophils 2.2 10^3/uL (1.5-7.6); Eosinophil % 0.2 %; Hematocrit 34.6 % (38-53); Hemoglobin 11.7 g/dL (13.2-16.3); Lymphocyte % 10.2 %; Mean Corpuscular Hemoglobin 28.9 pg (27-33); Mean Corpuscular Hgb Conc 33.9 g/dL (31-36); Mean Corpuscular Volume 85.2 fL (80-97); Mean Platelet Volume 7.1 fL (7.5-11.2); Platelet Count 114 10^3/uL (150-450); Red Blood Count 4.06 10^6/uL (4.06-5.63); Red Cell Distribution Width 12.9 % (12-17)
[2023-10-14 06:01] LABS: Albumin/Globulin Ratio 2.4 (1-3); Calcium 9.1 mg/dL (8.6-10.3); Creatinine, Serum 0.57 mg/dL (0.67-1.17); Globulin 1.7 g/dL (2-4); Potassium 3.8 mmol/L (3.5-5.0); Total Bilirubin 0.4 mg/dL (0.2-1.0); Total Protein 5.7 g/dL (6.4-8.9); eGFR CKD-EPI 110.2 (>60)
[2023-10-14] MEDS: CMCS: Mirabegron 25 mg ER TAB (NF) PO SCH (09:00)
[2023-10-14] MEDS: Methylphenidate ER 18 mg TAB PO SCH (09:06)
[2023-10-14 09:57] VITALS: BP 120/69
== END 2023-10-14 13:00 | disposition home or self-care (01) ==
LOC: MED 07:56 → CHOA 07:56
PROVIDERS: ADMIT Internal Medicine Hematology & Oncology; ATTEND Internal Medicine Hematology & Oncology

== ENCOUNTER 2023-10-20 07:53 | Observation (INO) ==
[~2023-10-20 07:53] MED LIST changes: +[UNRECOGNIZED DRUG - OTHER] IVPB SCH; -[UNRECOGNIZED DRUG - OTHER] IVPB SCH
[2023-10-20] MEDS ORDERED: Dexamethasone IV 4 MG/ML 5 ML VIAL (20 MG) IVPB ONE (08:37)
[2023-10-20 09:04] LABS: Albumin 3.4 g/dL (3.2-5.2); Albumin/Globulin Ratio 1.4 (1-3); Creatinine, Serum 0.7 mg/dL (0.67-1.17); Globulin 2.5 g/dL (2-4); Potassium 3.8 mmol/L (3.5-5.0); Total Bilirubin 0.7 mg/dL (0.2-1.0); Total Protein 5.9 g/dL (6.4-8.9); eGFR CKD-EPI 103.5 (>60)
[2023-10-20 09:52] LABS: ABS Eosinophils 0.1 10^3/uL (0.0-0.5); ABS Lymphocytes 0.5 10^3/uL (1.0-4.8); ABS Monocytes 0.5 10^3/uL (0.0-1.1); Eosinophil % 5.4 %; Hematocrit 37.9 % (38-53); Hemoglobin 12.2 gm/dL (13.2-16.3); Lymphocyte % 24.3 %; Mean Corpuscular Hemoglobin 27.8 pg (27-33); Mean Corpuscular Hgb Conc 32.3 g/dL (31-36); Mean Platelet Volume 7.6 fL (7.5-11.2); Platelet Count 170 10^3/uL (150-450); Red Blood Count 4.4 10^6/uL (4.06-5.63); Red Cell Distribution Width 14.5 % (12-17)
[2023-10-20 09:55] LABS: ABS Neutrophils 0.9 10^3/uL (1.5-7.6)
[2023-10-20] MEDS ORDERED: Ondansetron 4 mg VIAL 2 MG/ML 2 ml VIAL IV PRN (13:38)
[2023-10-20] MEDS ORDERED: Tocilizumab 200 MG/10 ML 10 ml VIAL IVPB PRN (13:50)
[2023-10-20] MEDS ORDERED: Dexamethasone IV 4 MG/ML VIAL 1 ml VIAL IV SLOW PU PRN (13:50)
[2023-10-20] MEDS ORDERED: Butalb/Acetamin/Caff TAB 325-50-40MG PO PRN (18:04)
[2023-10-20] MEDS ORDERED: Tocilizumab 800 MG in NS 0.9% 100 ml BAG 60 ML IVPB PRN (18:27)
[2023-10-20] MEDS: MAGNESIUM OXIDE 250 MG PO SCH (20:09)
[2023-10-21 06:03] LABS: ABS Lymphocytes 0.2 10^3/uL (1.0-4.8); ABS Monocytes 0.5 10^3/uL (0.0-1.1); ABS Neutrophils 2.6 10^3/uL (1.5-7.6); Hematocrit 36.4 % (38-53); Hemoglobin 12.2 g/dL (13.2-16.3); Lymphocyte % 6.4 %; Mean Corpuscular Hgb Conc 33.6 g/dL (31-36); Mean Corpuscular Volume 86.4 fL (80-97); Mean Platelet Volume 7.4 fL (7.5-11.2); Nucleated Red Blood Cells % 0.1 %/100WBC (0.0-0.8); Platelet Count 220 10^3/uL (150-450); Red Blood Count 4.22 10^6/uL (4.06-5.63); Red Cell Distribution Width 13.6 % (12-17); White Blood Count 3.3 10^3/uL (3.6-10.2)
[2023-10-21 06:27] LABS: Albumin/Globulin Ratio 2.5 (1-3); Calcium 8.8 mg/dL (8.6-10.3); Creatinine, Serum 0.6 mg/dL (0.67-1.17); Globulin 1.6 g/dL (2-4); Potassium 4.1 mmol/L (3.5-5.0); Total Bilirubin 0.4 mg/dL (0.2-1.0); Total Protein 5.6 g/dL (6.4-8.9); eGFR CKD-EPI 108.5 (>60)
[2023-10-21] MEDS: Methylphenidate ER 18 mg TAB PO SCH (08:20)
[2023-10-21] MEDS: CMCS:Mirabegron 25 mg ER TAB (NF) PO SCH (08:22)
[2023-10-21 13:34] VITALS: BP 106/59
== END 2023-10-21 14:25 | disposition home or self-care (01) ==
LOC: CHOA 07:53 → MED 07:53
PROVIDERS: ADMIT Internal Medicine Hematology & Oncology; ATTEND Internal Medicine Hematology & Oncology

== ENCOUNTER 2023-12-25 21:29 | Observation (INO) ==
[2023-12-25 22:04] LABS: Activated Partial Thrombo Time 40.3 seconds (26.0-38.0); INR 1.54 (0.85-1.14)
[2023-12-25 22:29] LABS: ALT 110 U/L (7-52); Albumin 3.9 g/dL (3.2-5.2); Albumin/Globulin Ratio 2.6 (1-3); Alkaline Phosphatase 130 U/L (35-149); Anion Gap 9 mmol/L (2-16); Blood Urea Nitrogen 23 mg/dL (6-24); CO2 Carbon Dioxide 24 mmol/L (22-32); Calcium 8.8 mg/dL (8.6-10.3); Chloride 99 mmol/L (101-111); Cholesterol 81 mg/dL; Creatinine, Serum 0.97 mg/dL (0.67-1.17); Globulin 1.5 g/dL (2-4); Glucose 131 mg/dL (70-100); HDL Cholesterol < 4.2 mg/dL; LDL Cholesterol -1 mg/dL; Sodium 132 mmol/L (135-145); Total Bilirubin 0.7 mg/dL (0.2-1.0); Total Protein 5.4 g/dL (6.4-8.9); Triglycerides 388 mg/dL; eGFR CKD-EPI 87.7 (>60)
[2023-12-25 22:36] LABS: ABS Basophils 0.1 10^3/uL (0.0-0.1); ABS Lymphocytes 1.2 10^3/uL (1.0-4.8); ABS Monocytes 0.8 10^3/uL (0.0-1.1); ABS Neutrophils 1.9 10^3/uL (1.5-7.6); ABS Nucleated RBC 0.01 10^3/ul; Anisocytosis 1+; Eosinophil % 0.1 %; Hematocrit 32.8 % (38-53); Hemoglobin 10.8 g/dL (13.2-16.3); Lymphocyte % 30.7 %; Mean Corpuscular Hemoglobin 28.1 pg (27-33); Mean Corpuscular Hgb Conc 32.9 g/dL (31-36); Mean Corpuscular Volume 85.2 fL (80-97); Nucleated Red Blood Cells % 0.2 %/100WBC (0.0-0.8); Platelet Count 81 10^3/uL (150-450); Polychromasia 1+; Red Blood Count 3.85 10^6/uL (4.06-5.63); Red Cell Distribution Width 16.7 % (12-17)
[2023-12-25] MEDS: Lactated Ringers 1000 ml BAG 1,000 ML IV ONE (23:44)
[2023-12-26] MEDS ORDERED: Sulfur Hexaflouride MICROSPHR 25 MG VIAL IV PRN ×2 (01:51→07:10)
[2023-12-26] MEDS: Acetaminophen IV 1 GM/100ML 1,000 MG/100 ML BAG IV ONE (01:55)
[2023-12-26 02:44] LABS: Urine Appearance Clear; Urine Bilirubin Negative (Negative); Urine Blood Negative (Negative); Urine Color Yellow; Urine Glucose Negative (Negative); Urine Ketones Negative (Negative); Urine Nitrite Negative (Negative); Urine Protein Trace (Negative); Urine Specific Gravity >1.050 (1.002-1.030); Urine Urobilinogen Negative (Negative); Urine pH 5.5 (5.0-8.0)
[2023-12-26 05:40] LABS: C Reactive Protein 72.94 mg/L (<8.01)
[2023-12-26 06:41] LABS: Hematocrit 31.6 % (38-53); Hemoglobin 10.3 g/dL (13.2-16.3); Mean Corpuscular Hemoglobin 27.7 pg (27-33); Mean Corpuscular Hgb Conc 32.5 g/dL (31-36); Mean Corpuscular Volume 85.3 fL (80-97); Red Blood Count 3.71 10^6/uL (4.06-5.63); Red Cell Distribution Width 17.2 % (12-17); White Blood Count 2.9 10^3/uL (3.6-10.2)
[2023-12-26 07:10] LABS: AST Redraw 168 U/L (13-39); Anion Gap 12 mmol/L (2-16); Blood Urea Nitrogen 20 mg/dL (6-24); CO2 Carbon Dioxide 26 mmol/L (22-32); Calcium 8.3 mg/dL (8.6-10.3); Chloride 102 mmol/L (101-111); Creatinine, Serum 0.89 mg/dL (0.67-1.17); Direct Bilirubin Redraw 0.1 mg/dL (0.1-0.5); Glucose 107 mg/dL (70-100); Potassium 4.2 mmol/L (3.5-5.0); Sodium 140 mmol/L (135-145); eGFR CKD-EPI 96.3 (>60)
[2023-12-26 07:57] LABS: ABS Lymphocytes 0.5 10^3/uL (1.0-4.8); ABS Monocytes 0.7 10^3/uL (0.0-1.1); ABS Neutrophils 1.6 10^3/uL (1.5-7.6); Eosinophil % 1.2 %; Lymphocyte % 17.2 %; Nucleated Red Blood Cells % 0.1 %/100WBC (0.0-0.8); Platelet Count 72 10^3/uL (150-450)
[2023-12-26 07:58] LABS: RBC Morphology Normal (Normal)
[2023-12-26] MEDS: NS 0.9% 1000 ml BAG 1,000 ML IV SCH (10:06)
[2023-12-26] MEDS: CMCS: Mirabegron 25 mg ER TAB (NF) PO SCH (10:15)
[2023-12-26 11:30] LABS: TSH Ultra Thyroid Stim Horm 5.01 mcIU/mL (0.34-5.60)
[2023-12-26 11:41] LABS: Folate > 20.00 ng/mL (5.90-24.80)
[2023-12-26 11:42] LABS: Vitamin B12 763 pg/mL (180-914)
[2023-12-26] MEDS: MELATONIN 10 MG PO SCH (19:20)
[2023-12-27 09:40] LABS: Calcium 7.9 mg/dL (8.6-10.3); Creatinine, Serum 0.67 mg/dL (0.67-1.17); Magnesium 1.5 mg/dL (1.9-2.7); Potassium 3.8 mmol/L (3.5-5.0); eGFR CKD-EPI 104.9 (>60)
[2023-12-27 10:18] VITALS: BP 110/61
[2023-12-27 10:31] LABS: ABS Lymphocytes 0.5 10^3/uL (1.0-4.8); ABS Monocytes 0.5 10^3/uL (0.0-1.1); ABS Neutrophils 1.5 10^3/uL (1.5-7.6); ABS Nucleated RBC 0.01 10^3/ul; Eosinophil % 0.6 %; Hemoglobin 9.3 g/dL (13.2-16.3); Lymphocyte % 18.1 %; Mean Corpuscular Hemoglobin 28.3 pg (27-33); Mean Corpuscular Hgb Conc 33.3 g/dL (31-36); Mean Corpuscular Volume 85.1 fL (80-97); Mean Platelet Volume 9.1 fL (7.5-11.2); Nucleated Red Blood Cells % 0.2 %/100WBC (0.0-0.8); Platelet Count 62 10^3/uL (150-450); RBC Morphology Normal (Normal); Red Blood Count 3.29 10^6/uL (4.06-5.63); Red Cell Distribution Width 16.9 % (12-17); White Blood Count 2.5 10^3/uL (3.6-10.2)
[2023-12-28] MEDS ORDERED: Sulfamethox/Trimethoprim DS TAB 800/160 mg PO SCH (09:00)
== END 2023-12-27 13:45 | disposition home or self-care (01) ==
LOC: ED 21:29 → EDHOLD 21:29 → SUATTDRO 12-26 01:51 → MED 12-26 07:54
PROVIDERS: ADMIT Internal Medicine; ATTEND Internal Medicine

== ENCOUNTER 2024-01-01 08:02 | Inpatient (IN) ==
[~2024-01-01 08:02] MED LIST changes: +Metoclopramide 5 MG/ML VIAL (10 mg) IV PRN; +NS 0.45% 1000 ml BAG 1,000 ML IV SCH; +Naloxone 0.4 mg VIAL 0.4 mg/ml 1 ml VIAL IV PRN; +Ondansetron 4 mg VIAL 2 MG/ML 2 ml VIAL IV PRN; -SODIUM CHLORIDE 0.9% IVPB SCH; -[UNRECOGNIZED DRUG - OTHER] IVPB SCH; +fentaNYL 100 mcg/2 ml 50 MCG/ML VIAL IV PRN
[2024-01-01] MEDS ORDERED: Dexamethasone IV 4 MG/ML VIAL 1 ml VIAL ONE (08:19)
[2024-01-01] MEDS ORDERED: Lidocaine 2% PF 5 ML VIAL ONE (08:19)
[2024-01-01] MEDS ORDERED: Ondansetron 4 mg VIAL 2 MG/ML 2 ml VIAL ONE (08:19)
[2024-01-01] MEDS ORDERED: Propofol 10 MG/ML 20 ML BTL ONE (08:19)
[2024-01-01] MEDS: Buffered Lidocaine 1% SYRIN 1 ml INTRADERM ONE (09:01)
[2024-01-01] MEDS: Lactated Ringers 1000 ml BAG 1,000 ML IV SCH (09:01)
[2024-01-01 09:04] LABS: Activated Partial Thrombo Time 36.7 seconds (26.0-38.0); INR 1.01 (0.85-1.14)
[2024-01-01 09:09] LABS: Hematocrit 29.6 % (38-53); Hemoglobin 9.9 g/dL (13.2-16.3); Mean Corpuscular Hemoglobin 28.4 pg (27-33); Mean Corpuscular Hgb Conc 33.3 g/dL (31-36); Mean Corpuscular Volume 85.4 fL (80-97); Mean Platelet Volume 9.3 fL (7.5-11.2); Platelet Count 33 10^3/uL (150-450); Red Blood Count 3.47 10^6/uL (4.06-5.63); Red Cell Distribution Width 17.3 % (12-17); White Blood Count 0.9 10^3/uL (3.6-10.2)
[2024-01-01] MEDS ORDERED: ceFAZolin 1 GM in Dextrose 1 GM/50 ML BAG ONE (09:50)
[2024-01-01] MEDS: ceFAZolin 1 GM ADVAN 1 GM in NS 0.9% 50 ML 50 ML IVPB ONE (09:56)
[2024-01-01] MEDS ORDERED: fentaNYL 100 mcg/2 ml 50 MCG/ML VIAL ONE (10:30)
[2024-01-01] MEDS ORDERED: Midazolam 2 mg/2 ml VIAL 1 mg/ml 2 ml VIAL (2 mg) ONE (10:30)
[2024-01-01] MEDS ORDERED: Lidocaine 1% w EPI 1:100,000 MDV 20 ML VIAL ONE (10:31)
[2024-01-01] MEDS ORDERED: Phenylephrine 40 mcg/mL 10mL (400mcg) SYRINGE ONE (10:32)
[2024-01-01 13:57] LABS: Mean Platelet Volume 9.7 fL (7.5-11.2); Platelet Count 33 10^3/uL (150-450)
[2024-01-01] MEDS ORDERED: Ondansetron 4 mg VIAL 2 MG/ML 2 ml VIAL IV PRN ×2 (16:06→17:25)
[2024-01-01 16:38] LABS: Rapid COVID-19 Molecular Undetected (Undetected)
[2024-01-01] MEDS ORDERED: Naloxone 0.4 mg VIAL 0.4 mg/ml 1 ml VIAL IV PRN (17:25)
[2024-01-01] MEDS ORDERED: fentaNYL 100 mcg/2 ml 50 MCG/ML VIAL IV PRN (17:25)
[2024-01-01] MEDS ORDERED: Metoclopramide 5 MG/ML VIAL (10 mg) IV PRN (17:25)
[2024-01-01] MEDS ORDERED: NS 0.45% 1000 ml BAG 1,000 ML IV SCH (18:00)
[2024-01-01] MEDS: Scopolamine 1 mg/72hr PATCH TRANSDERM ONE ×2 (18:15→18:18)
[2024-01-01] MEDS: Acetaminophen IV 1 GM/100ML 1,000 MG/100 ML BAG IV ONE ×2 (18:15→18:18)
[2024-01-01] MEDS: Albuterol/Ipratropium NEB.SOL (2.5/0.5 MG) 3 ML NEB.SOLN INH ONE ×2 (18:15→18:18)
[2024-01-01] MEDS: NS 0.9% 1000 ml BAG 1,000 ML IV SCH ×2 (18:32→18:47)
[2024-01-01] MEDS: Sulfamethox/Trimethoprim DS TAB 800/160 mg PO SCH (20:47)
[2024-01-02 06:18] LABS: Creatinine, Serum 0.72 mg/dL (0.67-1.17); Magnesium 1.7 mg/dL (1.9-2.7); Potassium 4.5 mmol/L (3.5-5.0); eGFR CKD-EPI 102.7 (>60)
[2024-01-02 06:28] LABS: Hematocrit 23.3 % (38-53); Hemoglobin 7.8 g/dL (13.2-16.3); Mean Corpuscular Hemoglobin 28.3 pg (27-33); Mean Corpuscular Hgb Conc 33.3 g/dL (31-36); Mean Corpuscular Volume 84.9 fL (80-97); Red Blood Count 2.74 10^6/uL (4.06-5.63); Red Cell Distribution Width 17.1 % (12-17); White Blood Count 0.6 10^3/uL (3.6-10.2)
[2024-01-02 06:32] LABS: ABS Neutrophils 0.4 10^3/uL (1.5-7.6)
[2024-01-02 08:33] LABS: Mean Platelet Volume 9.4 fL (7.5-11.2); Platelet Count 26 10^3/uL (150-450)
[2024-01-02 08:34] LABS: ABS Lymphocytes 0.1 10^3/uL (1.0-4.8); Anisocytosis 2+; Eosinophil % 0.7 %; Lymphocyte % 22.9 %; Nucleated Red Blood Cells % 0.4 %/100WBC (0.0-0.8)
[2024-01-02] MEDS ORDERED: Rosuvastatin 40 mg TAB (NF) PO SCH (09:00)
[2024-01-02] MEDS: Mirabegron 25 mg ER TAB (NF) PO SCH (10:41)
[2024-01-02] MEDS: Cefepime 2 GM in Dextrose 2 GM/50 ML BAG IV SCH (10:42)
[2024-01-02] MEDS: Magnesium Sulfate 2 gm BAG 2 GM/50 ML BAG IVPB ONE (11:47)
[2024-01-02 18:47] LABS: Urine Appearance Clear; Urine Bilirubin Negative (Negative); Urine Blood Negative (Negative); Urine Color Yellow; Urine Glucose Negative (Negative); Urine Ketones Negative (Negative); Urine Nitrite Negative (Negative); Urine Protein Trace (Negative); Urine Specific Gravity 1.023 (1.002-1.030); Urine Urobilinogen Negative (Negative); Urine pH 5.5 (5.0-8.0)
[2024-01-03 06:12] LABS: ABS Lymphocytes 0.1 10^3/uL (1.0-4.8); ABS Monocytes 0.1 10^3/uL (0.0-1.1); Eosinophil % 0.9 %; Hematocrit 25.9 % (38-53); Hemoglobin 8.6 g/dL (13.2-16.3); Lymphocyte % 11.6 %; Mean Corpuscular Hemoglobin 28.5 pg (27-33); Mean Corpuscular Hgb Conc 33.4 g/dL (31-36); Mean Corpuscular Volume 85.5 fL (80-97); Mean Platelet Volume 9.1 fL (7.5-11.2); Nucleated Red Blood Cells % 0.1 %/100WBC (0.0-0.8); Platelet Count 19 10^3/uL (150-450); Red Blood Count 3.02 10^6/uL (4.06-5.63); Red Cell Distribution Width 17.3 % (12-17); White Blood Count 1.2 10^3/uL (3.6-10.2)
[2024-01-03 06:32] LABS: Calcium 8.2 mg/dL (8.6-10.3); Creatinine, Serum 0.7 mg/dL (0.67-1.17); Magnesium 1.7 mg/dL (1.9-2.7); Potassium 4.2 mmol/L (3.5-5.0); eGFR CKD-EPI 103.5 (>60)
[2024-01-03] MEDS: Magnesium Sulfate 2 gm BAG 2 GM/50 ML BAG IVPB ONE (10:13)
[2024-01-03] MEDS: Magnesium Sulfate IV 1GM/100ML 1 GM/100 ML BAG IV ONE (11:28)
[2024-01-03] MEDS: Fluticasone NASAL SPRAY 50MCG 16 gm SPRAY BTL BOTH NARES SCH (14:31)
[2024-01-04 05:59] LABS: Hematocrit 23.9 % (38-53); Mean Corpuscular Hemoglobin 28.5 pg (27-33); Mean Corpuscular Hgb Conc 33.4 g/dL (31-36); Mean Corpuscular Volume 85.3 fL (80-97); Red Cell Distribution Width 16.7 % (12-17); White Blood Count 1.4 10^3/uL (3.6-10.2)
[2024-01-04 06:21] LABS: ABS Lymphocytes 0.2 10^3/uL (1.0-4.8); ABS Monocytes 0.2 10^3/uL (0.0-1.1); Eosinophil % 1.2 %; Lymphocyte % 12.1 %; Mean Platelet Volume 8.7 fL (7.5-11.2); Nucleated Red Blood Cells % 0.1 %/100WBC (0.0-0.8); Platelet Count 13 10^3/uL (150-450)
[2024-01-04 06:22] LABS: Anisocytosis 1+; Polychromasia 1+
[2024-01-05 06:42] LABS: Hematocrit 23.6 % (38-53); Hemoglobin 7.8 g/dL (13.2-16.3); Mean Corpuscular Hemoglobin 28.3 pg (27-33); Mean Corpuscular Hgb Conc 33.2 g/dL (31-36); Mean Corpuscular Volume 85.2 fL (80-97); Mean Platelet Volume 9.6 fL (7.5-11.2); Platelet Count 11 10^3/uL (150-450); Red Blood Count 2.77 10^6/uL (4.06-5.63); Red Cell Distribution Width 17.2 % (12-17)
[2024-01-05 07:42] LABS: ABS Lymphocytes 0.3 10^3/uL (1.0-4.8); ABS Monocytes 0.3 10^3/uL (0.0-1.1); ABS Neutrophils 1.1 10^3/uL (1.5-7.6); ABS Nucleated RBC 0.03 10^3/ul; Anisocytosis 1+; Eosinophil % 1.1 %; Lymphocyte % 19.2 %; Nucleated Red Blood Cells % 1.6 %/100WBC (0.0-0.8); Polychromasia 1+
[2024-01-05 09:36] LABS: White Blood Count 1.8 10^3/uL (3.6-10.2)
[2024-01-05] MEDS: Polyethylene Glycol 3350 17 GM PACKET PO PRN (14:08)
[2024-01-05] MEDS: Senna TAB 8.6 mg TAB PO PRN (19:42)
[2024-01-05] MEDS: Magnesium Hydroxide LIQ 30 ML UDC PO PRN (19:42)
[2024-01-06] MEDS: Ondansetron 4 mg VIAL 2 MG/ML 2 ml VIAL IV PRN (08:33)
[2024-01-06 09:03] LABS: Hematocrit 25.2 % (38-53); Hemoglobin 8.4 g/dL (13.2-16.3); Mean Corpuscular Hemoglobin 28.2 pg (27-33); Mean Corpuscular Hgb Conc 33.2 g/dL (31-36); Mean Corpuscular Volume 84.9 fL (80-97); Mean Platelet Volume 9.9 fL (7.5-11.2); Platelet Count 15 10^3/uL (150-450); Red Blood Count 2.97 10^6/uL (4.06-5.63); Red Cell Distribution Width 17.2 % (12-17); White Blood Count 2.7 10^3/uL (3.6-10.2)
[2024-01-06 09:05] LABS: ABS Lymphocytes 0.6 10^3/uL (1.0-4.8); ABS Monocytes 0.4 10^3/uL (0.0-1.1); ABS Neutrophils 1.6 10^3/uL (1.5-7.6); ABS Nucleated RBC 0.09 10^3/ul; Anisocytosis 2+; Eosinophil % 0.5 %; Hypochromasia 1+; Lymphocyte % 23.4 %; Nucleated Red Blood Cells % 3.2 %/100WBC (0.0-0.8); Polychromasia 1+
[2024-01-06] MEDS: Iohexol 300 (CONTRAST) 10 ML SDV IV ONE (10:16)
[2024-01-06] MEDS: Benzocaine/Menthol LOZ PO PRN (16:35)
[2024-01-07 08:45] LABS: Calcium 7.9 mg/dL (8.6-10.3); Creatinine, Serum 0.63 mg/dL (0.67-1.17); Magnesium 1.9 mg/dL (1.9-2.7); Potassium 4.2 mmol/L (3.5-5.0); eGFR CKD-EPI 106.9 (>60)
[2024-01-07 09:25] LABS: ABS Lymphocytes 0.8 10^3/uL (1.0-4.8); ABS Monocytes 0.5 10^3/uL (0.0-1.1); ABS Neutrophils 1.6 10^3/uL (1.5-7.6); ABS Nucleated RBC 0.04 10^3/ul; Anisocytosis 1+; Eosinophil % 0.6 %; Hematocrit 22.8 % (38-53); Hemoglobin 7.5 g/dL (13.2-16.3); Lymphocyte % 27.6 %; Mean Corpuscular Hemoglobin 28.1 pg (27-33); Mean Corpuscular Hgb Conc 32.7 g/dL (31-36); Mean Corpuscular Volume 85.9 fL (80-97); Mean Platelet Volume 9.7 fL (7.5-11.2); Nucleated Red Blood Cells % 1.5 %/100WBC (0.0-0.8); Platelet Count 17 10^3/uL (150-450); Polychromasia 1+; Red Blood Count 2.65 10^6/uL (4.06-5.63); Red Cell Distribution Width 17.2 % (12-17)
[2024-01-08 06:10] LABS: Calcium 7.8 mg/dL (8.6-10.3); Creatinine, Serum 0.56 mg/dL (0.67-1.17); Magnesium 1.9 mg/dL (1.9-2.7); Potassium 4.1 mmol/L (3.5-5.0); eGFR CKD-EPI 110.8 (>60)
[2024-01-08 07:54] LABS: ABS Lymphocytes 0.8 10^3/uL (1.0-4.8); ABS Monocytes 0.5 10^3/uL (0.0-1.1); ABS Neutrophils 1.1 10^3/uL (1.5-7.6); ABS Nucleated RBC 0.02 10^3/ul; Eosinophil % 0.5 %; Hematocrit 23.6 % (38-53); Hemoglobin 7.8 g/dL (13.2-16.3); Lymphocyte % 31.7 %; Mean Corpuscular Hemoglobin 28.5 pg (27-33); Mean Corpuscular Hgb Conc 33.1 g/dL (31-36); Mean Corpuscular Volume 86.1 fL (80-97); Mean Platelet Volume 9.5 fL (7.5-11.2); Platelet Count 18 10^3/uL (150-450); Red Blood Count 2.74 10^6/uL (4.06-5.63); Red Cell Distribution Width 17.2 % (12-17); White Blood Count 2.5 10^3/uL (3.6-10.2)
[2024-01-08 07:55] LABS: Anisocytosis 1+; Hypochromasia 2+
[2024-01-09 06:06] VITALS: BP 142/78
[2024-01-09 08:39] LABS: Calcium 8.1 mg/dL (8.6-10.3); Creatinine, Serum 0.65 mg/dL (0.67-1.17); Magnesium 1.8 mg/dL (1.9-2.7); Potassium 4.3 mmol/L (3.5-5.0); eGFR CKD-EPI 105.9 (>60)
[2024-01-09 08:52] LABS: Hematocrit 24.2 % (38-53); Hemoglobin 8.1 g/dL (13.2-16.3); Mean Corpuscular Hemoglobin 28.9 pg (27-33); Mean Corpuscular Hgb Conc 33.4 g/dL (31-36); Mean Corpuscular Volume 86.6 fL (80-97); Red Blood Count 2.79 10^6/uL (4.06-5.63); Red Cell Distribution Width 17.4 % (12-17); White Blood Count 2.3 10^3/uL (3.6-10.2)
[2024-01-09 10:09] LABS: ABS Lymphocytes 0.8 10^3/uL (1.0-4.8); ABS Monocytes 0.4 10^3/uL (0.0-1.1); ABS Neutrophils 1.1 10^3/uL (1.5-7.6); ABS Nucleated RBC 0.01 10^3/ul; Eosinophil % 0.9 %; Lymphocyte % 32.9 %; Mean Platelet Volume 9.7 fL (7.5-11.2); Nucleated Red Blood Cells % 0.6 %/100WBC (0.0-0.8); Platelet Count 20 10^3/uL (150-450)
[2024-01-09 10:37] LABS: Albumin 3.1 g/dL (3.2-5.2); Albumin/Globulin Ratio 2.4 (1-3); Direct Bilirubin 0.1 mg/dL (0.03-0.18); Globulin 1.3 g/dL (2-4); Indirect Bilirubin 0.5 mg/dL (0.3-1.0); Total Bilirubin 0.6 mg/dL (0.2-1.0); Total Protein 4.4 g/dL (6.4-8.9)
== END 2024-01-09 11:20 | disposition home or self-care (01) | DRG 803 ==
LOC: SSU 08:02 → OR 08:02 → SUATTDRO 01-03 12:45
PROVIDERS: ADMIT Otolaryngology; ATTEND Hospitalist

== ENCOUNTER 2024-01-14 10:10 | Inpatient (IN) ==
[2024-01-14 11:02] LABS: INR 1.37 (0.85-1.14)
[2024-01-14 11:09] LABS: Hematocrit 26.5 % (38-53); Hemoglobin 8.6 g/dL (13.2-16.3); Mean Corpuscular Hemoglobin 28.2 pg (27-33); Mean Corpuscular Hgb Conc 32.5 g/dL (31-36); Mean Corpuscular Volume 86.7 fL (80-97); Mean Platelet Volume 10.4 fL (7.5-11.2); Platelet Count 43 10^3/uL (150-450); Red Blood Count 3.06 10^6/uL (4.06-5.63); Red Cell Distribution Width 18.3 % (12-17); White Blood Count 4.1 10^3/uL (3.6-10.2)
[2024-01-14 11:19] LABS: Urine Appearance Clear; Urine Bilirubin Negative (Negative); Urine Blood Negative (Negative); Urine Color Yellow; Urine Glucose Negative (Negative); Urine Ketones Negative (Negative); Urine Nitrite Negative (Negative); Urine Protein 1+ (>=30 mg/dL) (Negative); Urine Specific Gravity 1.026 (1.002-1.030); Urine Urobilinogen 1+ (Negative); Urine pH 5.5 (5.0-8.0)
[2024-01-14 11:24] LABS: Urine Bacteria Absent /HPF (Absent); Urine Red Blood Cell Trace(0-2/hpf) /HPF (0-Trace); Urine White Blood Cell Trace(0-5/hpf) /HPF (0-Trace)
[2024-01-14 11:48] LABS: ABS Lymphocytes 0.9 10^3/uL (1.0-4.8); ABS Monocytes 0.6 10^3/uL (0.0-1.1); ABS Neutrophils 2.5 10^3/uL (1.5-7.6); ABS Nucleated RBC 0.02 10^3/ul; Anisocytosis 2+; Hypochromasia 1+; Nucleated Red Blood Cells % 0.5 %/100WBC (0.0-0.8); Polychromasia 1+
[2024-01-14 12:03] LABS: Albumin 3.3 g/dL (3.2-5.2); Albumin/Globulin Ratio 2.4 (1-3); Creatinine, Serum 0.76 mg/dL (0.67-1.17); Globulin 1.4 g/dL (2-4); Magnesium 1.9 mg/dL (1.9-2.7); Potassium 4.2 mmol/L (3.5-5.0); Total Bilirubin 0.9 mg/dL (0.2-1.0); Total Protein 4.7 g/dL (6.4-8.9)
[2024-01-14] MEDS: Iohexol 350 (CONTRAST) 500 ML MDV IV ONE (12:55)
[2024-01-14] MEDS ORDERED: Sulfur Hexaflouride MICROSPHR 25 MG VIAL IV PRN (15:15)
[2024-01-14] MEDS: cefTRIAXone 1 gm/50 mL D5W 1 GM/50 ML BAG IV ONE (15:29)
[2024-01-14] MEDS: Azithromycin 500 mg/250 ml NS 500 MG/250 ML BAG IVPB ONE (15:54)
[2024-01-14] MEDS: Piperacillin/Tazobac 3.375 BAG 3.375 GM/100 ML BAG IV ONE (16:45)
[2024-01-14] MEDS: Furosemide 40 mg/4 ml IV VIAL IV SLOW PU ONE (16:45)
[2024-01-14] MEDS ORDERED: Zosyn per Pharmacy NOTE FOLLOW UP SCH (17:00)
[2024-01-14] MEDS: Vancomycin 1,500 MG in NS 0.9% 250 ml 250 ML IVPB ONE (17:35)
[2024-01-14] MEDS: ZOSYN 3.375 GM Q8H per EXTENDED INFUSION IV SCH (22:56)
[2024-01-15] MEDS: ZOSYN 3.375 GM Q8H per EXTENDED INFUSION IV SCH (00:06)
[2024-01-15] MEDS: Lactated Ringers 1000 ml BAG 1,000 ML IV ONE (02:23)
[2024-01-15 06:28] LABS: Albumin/Globulin Ratio 2.3 (1-3); Calcium 7.7 mg/dL (8.6-10.3); Creatinine, Serum 0.84 mg/dL (0.67-1.17); Globulin 1.3 g/dL (2-4); Magnesium 1.9 mg/dL (1.9-2.7); Potassium 4.1 mmol/L (3.5-5.0); Total Bilirubin 0.9 mg/dL (0.2-1.0); Total Protein 4.3 g/dL (6.4-8.9)
[2024-01-15 08:01] LABS: ABS Lymphocytes 0.8 10^3/uL (1.0-4.8); ABS Monocytes 0.7 10^3/uL (0.0-1.1); ABS Neutrophils 1.7 10^3/uL (1.5-7.6); ABS Nucleated RBC 0.03 10^3/ul; Anisocytosis 2+; Eosinophil % 0.2 %; Hematocrit 24.1 % (38-53); Hemoglobin 8.1 g/dL (13.2-16.3); Lymphocyte % 23.7 %; Mean Corpuscular Hemoglobin 28.7 pg (27-33); Mean Corpuscular Hgb Conc 33.4 g/dL (31-36); Mean Corpuscular Volume 85.8 fL (80-97); Platelet Count 38 10^3/uL (150-450); Red Blood Count 2.81 10^6/uL (4.06-5.63); Red Cell Distribution Width 18.1 % (12-17); White Blood Count 3.2 10^3/uL (3.6-10.2)
[2024-01-15] MEDS: Fluticasone NASAL SPRAY 50MCG 16 gm SPRAY BTL BOTH NARES SCH (09:00)
[2024-01-15] MEDS: Sulfamethox/Trimethoprim DS TAB 800/160 mg PO SCH (10:34)
[2024-01-15] MEDS: Iohexol 350 (CONTRAST) 500 ML MDV IV ONE (16:58)
[2024-01-15] MEDS: Azithromycin 500 mg/250 ml NS 500 MG/250 ML BAG IVPB SCH (17:39)
[2024-01-16] MEDS: Vancomycin 1,500 MG in NS 0.9% 250 ml 250 ML IVPB ONE (04:10)
[2024-01-16 05:43] LABS: Calcium 7.5 mg/dL (8.6-10.3); Creatinine, Serum 0.83 mg/dL (0.67-1.17); Potassium 4.1 mmol/L (3.5-5.0); eGFR CKD-EPI 98.3 (>60)
[2024-01-16 05:44] LABS: Albumin 2.8 g/dL (3.2-5.2); Albumin/Globulin Ratio 2.5 (1-3); Globulin 1.1 g/dL (2-4); Magnesium 1.8 mg/dL (1.9-2.7); Total Bilirubin 0.8 mg/dL (0.2-1.0); Total Protein 3.9 g/dL (6.4-8.9)
[2024-01-16 07:06] LABS: Hemoglobin 7.2 g/dL (13.2-16.3); Mean Corpuscular Hemoglobin 28.2 pg (27-33); Mean Corpuscular Hgb Conc 32.9 g/dL (31-36); Mean Corpuscular Volume 85.6 fL (80-97); Red Blood Count 2.57 10^6/uL (4.06-5.63); Red Cell Distribution Width 18.3 % (12-17); White Blood Count 3.1 10^3/uL (3.6-10.2)
[2024-01-16 07:43] LABS: ABS Lymphocytes 0.8 10^3/uL (1.0-4.8); ABS Monocytes 0.6 10^3/uL (0.0-1.1); ABS Neutrophils 1.7 10^3/uL (1.5-7.6); ABS Nucleated RBC 0.02 10^3/ul; Eosinophil % 0.1 %; Lymphocyte % 24.5 %; Mean Platelet Volume 10.8 fL (7.5-11.2); Nucleated Red Blood Cells % 0.7 %/100WBC (0.0-0.8); Platelet Count 34 10^3/uL (150-450)
[2024-01-16 07:44] LABS: RBC Morphology Normal (Normal)
[2024-01-16] MEDS ORDERED: Vancomycin per Pharmacy 1 EA NOTE FOLLOW UP SCH (10:00)
[2024-01-16] MEDS: DOXYcycline 100 MG in NS 0.9% 250 ml 250 ML IVPB SCH (10:03)
[2024-01-16] MEDS: Vancomycin 1,500 MG in NS 0.9% 250 ml 250 ML IVPB SCH (17:54)
[2024-01-17 08:05] LABS: Calcium 7.5 mg/dL (8.6-10.3); Creatinine, Serum 0.75 mg/dL (0.67-1.17); Magnesium 1.8 mg/dL (1.9-2.7); Potassium 3.7 mmol/L (3.5-5.0); eGFR CKD-EPI 101.4 (>60)
[2024-01-17 09:08] LABS: Hematocrit 23.4 % (38-53); Hemoglobin 7.9 g/dL (13.2-16.3); Mean Corpuscular Hemoglobin 28.6 pg (27-33); Mean Corpuscular Hgb Conc 33.7 g/dL (31-36); Mean Corpuscular Volume 84.9 fL (80-97); Red Blood Count 2.76 10^6/uL (4.06-5.63); Red Cell Distribution Width 17.4 % (12-17); White Blood Count 2.4 10^3/uL (3.6-10.2)
[2024-01-17 09:09] LABS: Mean Platelet Volume 10.9 fL (7.5-11.2); Platelet Count 28 10^3/uL (150-450)
[2024-01-17 09:23] LABS: Albumin 2.8 g/dL (3.2-5.2); Albumin/Globulin Ratio 2.5 (1-3); Direct Bilirubin 0.4 mg/dL (0.03-0.18); Globulin 1.1 g/dL (2-4); Indirect Bilirubin 0.6 mg/dL (0.3-1.0); Total Protein 3.9 g/dL (6.4-8.9)
[2024-01-17 09:36] LABS: ABS Lymphocytes 0.5 10^3/uL (1.0-4.8); ABS Monocytes 0.5 10^3/uL (0.0-1.1); ABS Neutrophils 1.4 10^3/uL (1.5-7.6); ABS Nucleated RBC 0.02 10^3/ul; Anisocytosis 2+; Eosinophil % 0.1 %; Lymphocyte % 21.3 %; Microcytosis 1+; Nucleated Red Blood Cells % 0.8 %/100WBC (0.0-0.8)
[2024-01-17] MEDS: Potassium Chlor 20 meq TAB.ER PO ONE (13:28)
[2024-01-17] MEDS: Magnesium Sulfate 2 gm BAG 2 GM/50 ML BAG IVPB ONE (13:29)
[2024-01-17] MEDS: Lactated Ringers 1000 ml BAG 1,000 ML IV ONE (23:28)
[2024-01-18 06:40] LABS: Calcium 7.6 mg/dL (8.6-10.3); Creatinine, Serum 0.93 mg/dL (0.67-1.17); eGFR CKD-EPI 92.3 (>60)
[2024-01-18 06:48] LABS: ABS Lymphocytes 0.4 10^3/uL (1.0-4.8); ABS Monocytes 0.5 10^3/uL (0.0-1.1); ABS Neutrophils 1.4 10^3/uL (1.5-7.6); ABS Nucleated RBC 0.02 10^3/ul; Hematocrit 24.7 % (38-53); Hemoglobin 8.2 g/dL (13.2-16.3); Lymphocyte % 17.5 %; Mean Corpuscular Hemoglobin 28.5 pg (27-33); Mean Corpuscular Hgb Conc 33.2 g/dL (31-36); Mean Corpuscular Volume 85.8 fL (80-97); Mean Platelet Volume 10.6 fL (7.5-11.2); Nucleated Red Blood Cells % 1.1 %/100WBC (0.0-0.8); Platelet Count 23 10^3/uL (150-450); Red Blood Count 2.88 10^6/uL (4.06-5.63); Red Cell Distribution Width 18.1 % (12-17); White Blood Count 2.3 10^3/uL (3.6-10.2)
[2024-01-18] MEDS: Vancomycin Trough Check NOTE FOLLOW UP ONE (06:51)
[2024-01-18 09:28] LABS: Magnesium 1.9 mg/dL (1.9-2.7); Phosphorus 2.8 mg/dL (2.5-5.0)
[2024-01-18] MEDS: Sulfur Hexaflouride MICROSPHR 25 MG VIAL IV PRN (15:00)
[2024-01-19 16:08] LABS: Anaplasma phagocytophilum Negative (Negative); B. miyamotoi PCR, B Negative (Negative); Babesia divergens/MO-1 Negative (Negative); Babesia ducani Negative (Negative); Ehrlichia chaffeensis Negative (Negative); Ehrlichia ewingii/canis Negative (Negative); Ehrlichia muris eauclairensis Negative (Negative)
[2024-01-19 16:52] LABS: Hematocrit 23.9 % (38-53); Mean Corpuscular Hemoglobin 28.9 pg (27-33); Mean Corpuscular Hgb Conc 33.5 g/dL (31-36); Mean Corpuscular Volume 86.4 fL (80-97); Mean Platelet Volume 10.3 fL (7.5-11.2); Platelet Count 19 10^3/uL (150-450); Red Blood Count 2.77 10^6/uL (4.06-5.63); White Blood Count 2.3 10^3/uL (3.6-10.2)
[2024-01-19 17:02] LABS: Albumin 2.6 g/dL (3.2-5.2); Calcium 7.6 mg/dL (8.6-10.3); Creatinine, Serum 0.98 mg/dL (0.67-1.17); Globulin 1.3 g/dL (2-4); Magnesium 1.8 mg/dL (1.9-2.7); Phosphorus 3.4 mg/dL (2.5-5.0); Potassium 3.8 mmol/L (3.5-5.0); Total Bilirubin 0.9 mg/dL (0.2-1.0); Total Protein 3.9 g/dL (6.4-8.9); eGFR CKD-EPI 86.6 (>60)
[2024-01-19 17:32] LABS: ABS Lymphocytes 0.4 10^3/uL (1.0-4.8); ABS Monocytes 0.5 10^3/uL (0.0-1.1); ABS Neutrophils 1.3 10^3/uL (1.5-7.6); ABS Nucleated RBC 0.02 10^3/ul; Anisocytosis 1+; Eosinophil % 0.4 %; Lymphocyte % 19.4 %; Nucleated Red Blood Cells % 0.7 %/100WBC (0.0-0.8); Polychromasia 1+
[2024-01-19 17:48] LABS: ABS Lymphocytes 0.4 10^3/ul (1.0-4.8); ABS Monocytes 0.3 10^3/ul (0.0-1.1); ABS Neutrophils 1.7 10^3/ul (1.5-7.6)
[2024-01-20] MEDS: Vancomycin 1,500 MG in NS 0.9% 250 ml 250 ML IVPB SCH (15:18)
[2024-01-20 17:14] LABS: IgG Immunoblot Negative (Negative); IgM Immunoblot Negative (Negative)
[2024-01-20] MEDS: Furosemide 40 mg/4 ml IV VIAL IV SLOW PU ONE (17:40)
[2024-01-20] MEDS: Vancomycin Trough Check NOTE FOLLOW UP ONE (18:31)
[2024-01-20] MEDS ORDERED: Zosyn per Pharmacy NOTE FOLLOW UP SCH (19:00)
[2024-01-20] MEDS: Piperacillin/Tazobac 3.375 BAG 3.375 GM/100 ML BAG IV ONE (19:38)
[2024-01-20 19:56] LABS: Albumin 2.8 g/dL (3.2-5.2); Albumin/Globulin Ratio 2.2 (1-3); Calcium 8.2 mg/dL (8.6-10.3); Creatinine, Serum 1.15 mg/dL (0.67-1.17); Globulin 1.3 g/dL (2-4); Potassium 3.9 mmol/L (3.5-5.0); Total Bilirubin 0.8 mg/dL (0.2-1.0); Total Protein 4.1 g/dL (6.4-8.9); eGFR CKD-EPI 71.5 (>60)
[2024-01-20] MEDS: Lactated Ringers 1000 ml BAG 1,000 ML IV ONE (20:16)
[2024-01-20 21:25] LABS: Hematocrit 24.7 % (38-53); Hemoglobin 8.3 g/dL (13.2-16.3); Mean Corpuscular Hemoglobin 28.8 pg (27-33); Mean Corpuscular Hgb Conc 33.5 g/dL (31-36); Mean Corpuscular Volume 85.8 fL (80-97); Mean Platelet Volume 10.1 fL (7.5-11.2); Platelet Count 20 10^3/uL (150-450); Red Blood Count 2.88 10^6/uL (4.06-5.63); Red Cell Distribution Width 18.2 % (12-17); White Blood Count 2.7 10^3/uL (3.6-10.2)
[2024-01-20 21:28] LABS: ABS Lymphocytes 0.7 10^3/uL (1.0-4.8); ABS Monocytes 0.6 10^3/uL (0.0-1.1); ABS Neutrophils 1.3 10^3/uL (1.5-7.6); ABS Nucleated RBC 0.02 10^3/ul; Eosinophil % 0.1 %; Lymphocyte % 27.5 %; Nucleated Red Blood Cells % 0.7 %/100WBC (0.0-0.8)
[2024-01-20] MEDS ORDERED: levETIRAcetam IV 750 MG in NS 0.9% 100 ml BAG 100 ML IVPB ONE (22:34)
[2024-01-21] MEDS: Lactated Ringers 1000 ml BAG 1,000 ML IV ONE ×2 (00:12→11:25)
[2024-01-21] MEDS: ZOSYN 3.375 GM Q8H per EXTENDED INFUSION IV SCH (03:23)
[2024-01-21 07:39] LABS: Hematocrit 22.1 % (38-53); Hemoglobin 7.4 g/dL (13.2-16.3); Mean Corpuscular Hemoglobin 28.7 pg (27-33); Mean Corpuscular Hgb Conc 33.6 g/dL (31-36); Mean Corpuscular Volume 85.4 fL (80-97); Mean Platelet Volume 9.9 fL (7.5-11.2); Platelet Count 16 10^3/uL (150-450); Red Blood Count 2.58 10^6/uL (4.06-5.63); Red Cell Distribution Width 18.6 % (12-17); White Blood Count 2.2 10^3/uL (3.6-10.2)
[2024-01-21 07:44] LABS: Calcium 7.7 mg/dL (8.6-10.3); Creatinine, Serum 1.17 mg/dL (0.67-1.17); Magnesium 1.8 mg/dL (1.9-2.7); Potassium 3.8 mmol/L (3.5-5.0)
[2024-01-21 08:08] LABS: ABS Lymphocytes 0.4 10^3/uL (1.0-4.8); ABS Monocytes 0.5 10^3/uL (0.0-1.1); ABS Neutrophils 1.3 10^3/uL (1.5-7.6); ABS Nucleated RBC 0.01 10^3/ul; Lymphocyte % 16.6 %; Nucleated Red Blood Cells % 0.6 %/100WBC (0.0-0.8)
[2024-01-21 10:06] LABS: C Reactive Protein 108.58 mg/L (<8.01)
[2024-01-21] MEDS ORDERED: Senna TAB 8.6 mg TAB PO PRN (14:47)
[2024-01-21] MEDS ORDERED: Morphine ORAL CONCENTRATE 5 MG/0.25 ML ORAL.SYRIN SL PRN (14:47)
[2024-01-21] MEDS ORDERED: Ondansetron ODT 4 mg TAB 4 MG TAB SL PRN (14:47)
[2024-01-21] MEDS ORDERED: Scopolamine 1 mg/72hr PATCH TRANSDERM PRN (14:47)
[2024-01-22] MEDS: Vancomycin Trough Check NOTE FOLLOW UP ONE (11:35)
[2024-01-23 07:10] LABS: Hemoglobin 7.4 g/dL (13.2-16.3); Mean Corpuscular Hemoglobin 28.8 pg (27-33); Mean Corpuscular Hgb Conc 33.8 g/dL (31-36); Mean Corpuscular Volume 85.1 fL (80-97); Red Blood Count 2.59 10^6/uL (4.06-5.63); Red Cell Distribution Width 19.4 % (12-17); White Blood Count 2.8 10^3/uL (3.6-10.2)
[2024-01-23 08:02] LABS: Mean Platelet Volume 10.1 fL (7.5-11.2); Platelet Count 15 10^3/uL (150-450)
[2024-01-23 08:34] LABS: ABS Lymphocytes 0.3 10^3/uL (1.0-4.8); ABS Monocytes 0.6 10^3/uL (0.0-1.1); ABS Neutrophils 1.9 10^3/uL (1.5-7.6); ABS Nucleated RBC 0.03 10^3/ul; Anisocytosis 1+; Eosinophil % 0.1 %; Lymphocyte % 10.1 %; Nucleated Red Blood Cells % 0.9 %/100WBC (0.0-0.8); Polychromasia 2+
[2024-01-23] MEDS: Albuterol/Ipratropium NEB.SOL (2.5/0.5 MG) 3 ML NEB.SOLN INH ONE (22:34)
[2024-01-24 06:16] VITALS: BP 100/67
[2024-01-24 07:14] LABS: Hematocrit 23.7 % (38-53); Hemoglobin 7.9 g/dL (13.2-16.3); Mean Corpuscular Hgb Conc 33.3 g/dL (31-36); Mean Corpuscular Volume 87.2 fL (80-97); Mean Platelet Volume 10.3 fL (7.5-11.2); Platelet Count 17 10^3/uL (150-450); Red Blood Count 2.72 10^6/uL (4.06-5.63); Red Cell Distribution Width 19.6 % (12-17); White Blood Count 3.5 10^3/uL (3.6-10.2)
[2024-01-24 08:01] LABS: ABS Lymphocytes 0.2 10^3/uL (1.0-4.8); ABS Monocytes 0.7 10^3/uL (0.0-1.1); ABS Neutrophils 2.6 10^3/uL (1.5-7.6); ABS Nucleated RBC 0.04 10^3/ul; Anisocytosis 2+; Eosinophil % 0.1 %; Hypochromasia 1+; Lymphocyte % 5.6 %; Microcytosis 1+; Nucleated Red Blood Cells % 1.3 %/100WBC (0.0-0.8); Polychromasia 2+
== END 2024-01-25 09:20 | disposition hospice, home (50) | DRG 314 ==
LOC: ED 10:10 → EDHOLD 10:10 → MED 21:35 → SUATTDRO 01-15 08:00
PROVIDERS: ADMIT Internal Medicine; ATTEND Internal Medicine